=== PATIENT | male | born 1965 | race Caucasian/White ===

== ENCOUNTER → 2023-07-24 06:43 | Outpatient (REF) | payer OTHER, SELFPAY ==
[2023-07-24 10:07] LABS: % Basophils 0.6 % (0-2); % Eosinophils 8.9 % (0-6); % Immature Granulocytes 0.4 % (0-0.5); % Lymphocytes 28.4 % (20.5-51.1); % Monocytes 8.9 % (1.7-9.3); % Neutrophils 52.8 % (42.2-75.2); Absolute Eosinophils 0.5 10^3/uL (0-0.7); Absolute Lymphocytes 1.5 10^3/uL (1.2-3.4); Absolute Monocytes 0.5 10^3/uL (0.1-0.6); Absolute Neutrophils 2.8 10^3/uL (1.4-6.5); Hematocrit 37.8 % (39.0-52.0); Hemoglobin 13.3 g/dL (13.0-18.0); Mean Corp Hgb Conc. 35.2 g/dL (33.0-37.0); Mean Corpuscular Hgb 40.1 pg (27.0-31.0); Mean Corpuscular Volume 113.9 fL (80.0-94.0); Nucleated Red Blood Cells % 0 % (-); Platelet Count 223 10^3/uL (130-400); Red Blood Cell Count 3.32 10^6/uL (4.70-6.10); White Blood Cell Count 5.4 10^3/uL (4.8-10.8)
[2023-07-24 10:34] LABS: Iron 211 ug/dl (49-181)
[2023-07-24 10:43] LABS: Percent Saturation 81 % (20-50); Total Iron Binding Capacity 260 ug/dl (261-462)
[2023-07-24 11:41] LABS: Vitamin B12 225 pg/ml (239-931)
[2023-07-24 12:43] LABS: Glycohemoglobin (HgbA1c) 5.2 % (4.0-5.6)
== END ==
LOC: HWLAB 06:43
PROVIDERS: ATTENDING PHYSICIAN Physician Assistant
DX: E11.9 Type 2 diabetes mellitus without complications (principal); D64.9 Anemia, unspecified
CPT/HCPCS: 36415; 82607; 82728; 83036; 83540; 83550; 85025

== ENCOUNTER 2024-12-12 20:48 | Inpatient (IN) | payer OTHER, SELFPAY ==
[2024-12-12] VITALS (15 sets, daily range): BP systolic 97–158; BP diastolic 48–131; BMI 44.1; BMI 43.6
[2024-12-12 14:08] LABS: Hematocrit 22.7 % (39.0-52.0); Hemoglobin 7.6 g/dL (13.0-18.0); Mean Corp Hgb Conc. 33.5 g/dL (33.0-37.0); Mean Corpuscular Volume 133.5 fL (80.0-94.0); Nucleated Red Blood Cells % 0.6 % (-); Platelet Count 201 10^3/uL (130-400); Red Cell Dist. Width 13.7 % (11.5-14.5)
--- NOTE | 2024-12-12 14:17 | ED.GENMED ---
History of Present Illness
<Concepcion Slaughter PA-C - Last Filed: 12/12/24 19:33>
General
Chief Complaint: Breathing Problem
Source: patient
Exam Limitations: none
Time Seen by Provider: 12/12/24 14:16
History of Present Illness
History of Present Illness:
59yoM with a history of hypertension, hyperlipidemia, type 2 diabetes presenting for evaluation of fatigue. Patient had a fall about a month ago in which he injured his left rib cage. He believes he cracked a rib at that time. He has been having
shortness of breath ongoing since then with intermittent wheezing. His son notes that he has had a gradual decline in health for the past week or so. He was driving in the car today when he was 'dosing off' and he was brought to the ED for
evaluation. He denies any fevers, cough, syncope, abdominal pain.
Past History
<Concepcion Slaughter PA-C - Last Filed: 12/12/24 19:33>
Past History
ED Past Medical History: HTN and Other (Lumbar laminectomy 1996, lumbar fusion 1997, left knee total replacement, hypertension, hyperlipidemia); Negative IDDM
Social History
Tobacco: Former smoker
Alcohol: Occasional
Drug: None
Personal:
Living: with family
Employment: Employed
Family History
Family History: CAD and Other (breast cancer)
Phy Exam
<Concepcion Slaughter PA-C - Last Filed: 12/12/24 19:33>
General Physical Exam
General Presentation: mild distress
General Skin: warm and dry
General Habitus: obese
General Mental: alert
ENT Exam
ENT Exam: normocephalic
Cardiovascular Exam
Cardiovascular Exam: regular rate/rhythm
Pulmonary Exam
Pulmonary Exam: no crackles, no stridor, no wheezing, decreased breath sounds and other (+L lateral chest wall tenderness. No crepitus or skin changes.)
Gastrointestinal Exam
Gastrointestinal Exam: non tender, soft and non distended
Stool: other (Stool light brown, hemoccult negative)
Neurological Exam
Neurological Exam: alert
[place] Coma Scale
Eye Opening: Spontaneous
Verbal Response: Oriented
Motor Response: Obeys Commands
GCS Total Score: 15
Skin Exam
Skin Exam: normal color and warm/dry
Psychiatric Exam
Psychiatric Exam: normal mood/affect
Scores
<Concepcion Slaughter PA-C - Last Filed: 12/12/24 19:33>
Heart Failure Risk
Heart Failure Risk Score: Not Applicable
Course
<Concepcion Slaughter PA-C - Last Filed: 12/12/24 19:33>
Orders/Labs/Results
Orders:
Orders
12/12/24 13:48
Electrocardiogram (*1) Urgent
Reason for Study: Chest Pain
EKG- Treatment ONCE
12/12/24 14:01
Comprehensive Metabolic Panel Urgent
12/12/24 14:02
BNP [NT-proBNP] Urgent
Complete Blood Count/With Diff Urgent
Troponin I Urgent
12/12/24 14:48
Type+Screen Urgent
PTT Urgent
Prothrombin Time Urgent
12/12/24 14:51
Chest/Abd/Pelvis w Contrast CT [CT Chest/abd/pel W Iv Cont] Urgent
Comment:
Reason For Exam: Fall 1 month ago, L rib pain, new onset anemia
12/12/24 15:03
Ferritin Urgent
Iron Urgent
TIBC [Total Iron Binding] Urgent
12/12/24 15:54
Blood Bank Products [* Blood Bank Products] Urgent
Blood Bank Products: *Packed RBC Leuko(PRBC's)
Quantity: 1
Transfuse Today: Yes
Reason: Anemia
12/12/24 16:11
Arterial Blood Gas Urgent
%Oxygen/Room Air: room air
Abnormal Lab Results
12/12/24 12/12/24 12/12/24
14:01 14:02 14:48
WBC 4.7 L 10^3/uL
(4.8-10.8)
RBC 1.70 L 10^6/uL
(4.70-6.10)
Hgb 7.6 L g/dL
(13.0-18.0)
Hct 22.7 L %
(39.0-52.0)
MCV 133.5 H fL
(80.0-94.0)
MCH 44.7 H pg
(27.0-31.0)
Absolute Lymphs (auto) 0.8 L 10^3/uL
(1.2-3.4)
Immature Gran % 0.6 H %
(0-0.5)
Lymphocytes % 16.7 L %
(20.5-51.1)
APTT 36.2 H Sec
(23.4-35.0)
pO2
Sodium 131 L mmol/L
(135-145)
Glucose 119 H mg/dl
(70-99)
TIBC
% Saturation
Ferritin
Total Bilirubin 1.5 H mg/dl
(0.2-1.3)
Alkaline Phosphatase 180 H U/L
(38-126)
Albumin 3.1 L g/dl
(3.5-5.0)
Crossmatch IS Only See Detail
12/12/24 12/12/24
15:03 16:11
WBC
RBC
Hgb
Hct
MCV
MCH
Absolute Lymphs (auto)
Immature Gran %
Lymphocytes %
APTT
pO2 71 L mmHg
(83-108)
Sodium
Glucose
TIBC 183 L ug/dl
(261-462)
% Saturation 67 H %
(20-50)
Ferritin 479.0 H ng/ml
(17.9-464.0)
Total Bilirubin
Alkaline Phosphatase
Albumin
Crossmatch IS Only
12/12/24 14:02
12/12/24 14:01
Vital Signs
Initial and Last Documented VS:
Initial Vital Signs
Temp Pulse Resp Pulse Ox
98.4 F 87 15 99
12/12/24 13:49 12/12/24 13:49 12/12/24 13:49 12/12/24 13:49
Last Documented Vital Signs
Temp Pulse Resp BP Pulse Ox
97.8 F 80 18 122/86 96
12/12/24 18:04 12/12/24 18:33 12/12/24 19:00 12/12/24 18:05 12/12/24 18:30
<Edi Abraham, DO - Last Filed: 12/12/24 15:49>
Orders/Labs/Results
Orders:
Orders
12/12/24 13:48
Electrocardiogram (*1) Urgent
Reason for Study: Chest Pain
EKG- Treatment ONCE
12/12/24 14:01
Comprehensive Metabolic Panel Urgent
12/12/24 14:02
BNP [NT-proBNP] Urgent
Complete Blood Count/With Diff Urgent
Troponin I Urgent
12/12/24 14:48
Type+Screen Urgent
PTT Urgent
Prothrombin Time Urgent
12/12/24 14:51
Chest/Abd/Pelvis w Contrast CT [CT Chest/abd/pel W Iv Cont] Urgent
Comment:
Reason For Exam: Fall 1 month ago, L rib pain, new onset anemia
12/12/24 15:03
Ferritin Urgent
Iron Urgent
TIBC [Total Iron Binding] Urgent
12/12/24 15:54
Blood Bank Products [* Blood Bank Products] Urgent
Blood Bank Products: *Packed RBC Leuko(PRBC's)
Quantity: 1
Transfuse Today: Yes
Reason: Anemia
12/12/24 16:11
Arterial Blood Gas Urgent
%Oxygen/Room Air: room air
Abnormal Lab Results
12/12/24 12/12/24 12/12/24
14:01 14:02 14:48
WBC 4.7 L 10^3/uL
(4.8-10.8)
RBC 1.70 L 10^6/uL
(4.70-6.10)
Hgb 7.6 L g/dL
(13.0-18.0)
Hct 22.7 L %
(39.0-52.0)
MCV 133.5 H fL
(80.0-94.0)
MCH 44.7 H pg
(27.0-31.0)
Absolute Lymphs (auto) 0.8 L 10^3/uL
(1.2-3.4)
Immature Gran % 0.6 H %
(0-0.5)
Lymphocytes % 16.7 L %
(20.5-51.1)
APTT 36.2 H Sec
(23.4-35.0)
pO2
Sodium 131 L mmol/L
(135-145)
Glucose 119 H mg/dl
(70-99)
TIBC
% Saturation
Ferritin
Total Bilirubin 1.5 H mg/dl
(0.2-1.3)
Alkaline Phosphatase 180 H U/L
(38-126)
Albumin 3.1 L g/dl
(3.5-5.0)
Crossmatch IS Only See Detail
12/12/24 12/12/24
15:03 16:11
WBC
RBC
Hgb
Hct
MCV
MCH
Absolute Lymphs (auto)
Immature Gran %
Lymphocytes %
APTT
pO2 71 L mmHg
(83-108)
Sodium
Glucose
TIBC 183 L ug/dl
(261-462)
% Saturation 67 H %
(20-50)
Ferritin 479.0 H ng/ml
(17.9-464.0)
Total Bilirubin
Alkaline Phosphatase
Albumin
Crossmatch IS Only
12/12/24 14:02
12/12/24 14:01
Vital Signs
Initial and Last Documented VS:
Initial Vital Signs
Temp Pulse Resp Pulse Ox
98.4 F 87 15 99
12/12/24 13:49 12/12/24 13:49 12/12/24 13:49 12/12/24 13:49
Last Documented Vital Signs
Temp Pulse Resp BP Pulse Ox
97.8 F 80 18 122/86 96
12/12/24 18:04 12/12/24 18:33 12/12/24 19:00 12/12/24 18:05 12/12/24 18:30
[place];Concepcion Slaughter PA-C - Last Filed: 12/12/24 19:33>
MDM/Problems Addressed
Differential Diagnosis Includes:
59yoM here with fatigue. Started with SOB and L rib pain after a fall 1 month ago. Worsening fatigue x 1 week and was 'dosing off' while driving today. VSS. He is ill appearing but awake and alert during exam. Differential diagnosis includes but is
not limited to: pneumonia, aspiration, rib fracture, symptomatic anemia, ACS
Initial ED plan: Workup initiated in triage and hemoglobin is 7.6, down from 13.3 in July 2023. Rectal exam performed and stool is light brown and hemoccult testing negative. Will check cardiac labs, EKG, and CT CAP given anemia and recent trauma.
<Concepcion Slaughter PA-C - Last Filed: 12/12/24 19:33>
*Pulse Oximetry
SaO2: 99
Oxygen Mode of Delivery: Room air
Patient hypoxic: no
*EKG
Interpreted by ED Provider?: Yes
EKG Intrepretation Date: 12/12/24
Heart Rate: 87
Rate: normal
Rhythm: PVC's
[place]: normal axis
QRS Pattern: right bundle branch block
Ischemia: no ischemia
*Critical Care Note
Total Time (30-74mins, 75-104mins- exclusive of procedures): Not Applicable
<Concepcion Slaughter PA-C - Last Filed: 12/12/24 19:33>
Update Note
Update Note:
BNP elevated at 4000. Troponin normal. CT shows acute nondisplaced fractures of left 4th-6th ribs with bilateral pleural effusions. Splenomegaly and nonspecific adenopathy also noted, possible lymphoma. Consent obtained and 1 unit PRBCs ordered
for transfusion. Patient admitted for further evaluation and management.
ED Attending Note
<Concepcion Slaughter PA-C - Last Filed: 12/12/24 19:33>
-
Portions of this chart may have been created with voice recognition software.� Occasional wrong word or��sound alike� substitutions may have occurred due to the inherent limitations of voice recognition software.
<Edi Abraham, - Last Filed: 12/12/24 15:49>
ED Attending Note
Patient seen and examined by attending physician: Yes
I performed the substantive portion of visit, reviewed & personally made and approve the management plan that is documented in note by myself or EDDIE.: Yes
ED Attending Note:
I evaluated the patient at bedside. The patient is somewhat ill-appearing. He is somnolent. Will check ABG but his bicarb is normal. Given the drop in the hemoglobin and he had a recent fall, we will obtain CT imaging of the chest abdomen pelvis
Discharge Plan
Departure
Patient Disposition: Admit
Date of Disposition: 12/12/24
Time of Disposition: 19:03
Presentation/result/management discussed w/ accepting MD/DO: Hospitalist
Discharge Problem:
Symptomatic anemia, Splenomegaly, Multiple fractures of ribs of left side
Prescriptions:
No Action
atorvastatin 40 MG tablet
40 mg PO DAILY
metoprolol tartrate 50 MG tablet
100 mg PO DAILY
gurinder Leon,B.animalis 1 EACH capsule
1 ea PO DAILY
Beet Capsules
1 tab PO DAILY
omeprazole [Prilosec] 40 MG capsule,delayed release(DR/EC)
40 mg PO DAILY Qty: 0 0RF
aspirin [Kushal Low Dose Aspirin] 81 MG tablet,delayed release (DR/EC)
81 mg PO DAILY Qty: 20 0RF
Lisinopril
1 tab PO DAILY
Patient Comments:
PT DOES NOT KNOW DOSE
oxycodone-acetaminophen 1 EACH tablet
1 ea PO Q4HPRN PRN (Reason: pain) Qty: 20 0RF
methylprednisolone [Medrol (Wallace)] 4 MG tablets,dose pack
4 tab PO . DIRECT Qty: 1 0RF
Referrals:
Maite Long PA-C [Family Provider, Internal Medicine]
Interventions
Interventions:
*Risk Screen - Suicide Last Done: 12/12/24 13:49
*General Assessment Last Done: 12/12/24 13:49
*Neglect/Abuse Screening Last Done: 12/12/24 13:49
*ED- Fall Risk Assessment Last Done: 12/12/24 14:50
*ED COVID-19 Vaccine History Last Done: 12/12/24 13:49
*ED Influenza Vaccine History Last Done: 12/12/24 13:49
ED- Cardiac Assessment Last Done: 12/12/24 14:54
ED- Pulmonary Assessment Last Done: 12/12/24 14:54
Discharge Date and Time
Print Language: SETSWANA
[2024-12-12 14:24] LABS: ALT (SGPT) 32 U/L (0-50); AST (SGOT) 53 U/L (17-59); Albumin 3.1 g/dl (3.5-5.0); Alkaline Phosphatase 180 U/L (38-126); Blood Urea Nitrogen 16 mg/dl (9-20); Calcium 8.4 mg/dl (8.4-10.2); Carbon Dioxide 26 mmol/L (22-30); Chloride 100 mmol/L (98-107); Glucose 119 mg/dl (70-99); Potassium 3.8 mmol/L (3.5-5.1); Sodium 131 mmol/L (135-145); Total Protein 6.6 g/dl (6.3-8.2); eGFR > 60.00
[2024-12-12 14:36] LABS: Troponin I 0.020 ng/ml
[2024-12-12 15:28] LABS: INR 1.09; PT 14.6 Sec (11.4-14.6)
[2024-12-12 15:29] LABS: APTT 36.2 Sec (23.4-35.0)
[2024-12-12 15:35] LABS: Iron 124 ug/dl (49-181)
[2024-12-12 15:45] LABS: Total Iron Binding Capacity 183 ug/dl (261-462)
[2024-12-12 16:17] LABS: B.E. 0.1 mmol/L; HCO3 24.6 mmol/L (21-28); O2 Saturation % 96.5 % (94-98); PCO2 38 mmHg (35-48); PO2 71 mmHg (83-108)
[2024-12-12 16:18] LABS: Ferritin 479.0 ng/ml (17.9-464.0)
--- NOTE | 2024-12-12 19:52 | HPS.HSE ---
Addendum entered and electronically signed by William Hutchins DO 12/12/24 23:15:
Patient seen and examined independently. Agree with findings and plan as set forth by TRISTAN Del Valle.
Patient is a 59y M with PMH significant for hypertension, DM-II and obesity who presents to ED complaining of dyspnea with exertion, excessive sleepiness and easy bruisability. Patient states that he had a fall about one month ago and injured
his L chest / ribs. He denies LOC / syncope at that time. He has appreciated significant dyspnea with activity that has been gradually progressive. Today he was driving his son to the store when he began to fall asleep while driving. His son was
able to keep him awake and they presented here to the ED for further evaluation. He denies any nose bleeds, hemoptysis, hematemesis or black / bloody stools. No bloody or dark urine.
Ass:
Symptomatic Anemia
Diffuse Adenopathy
Left-Sided Rib Fractures s/p Fall
Benign Hypertension - currently hypotensive
DM-II
Morbid Obesity due to excess calories
Alcohol Use Disorder
Plan:
Admit for further evaluation and treatment.
Transfusing in the ED for symptomatic anemia with dyspnea, fatigue.
Follow for clinical improvement.
Hematology evaluation for additional recommendations.
Hold usual antihypertensive medications acutely.
Follow glucose and cover with SSI as needed.
Update A1C.
Original Note:
Family Physician
-
Family Physician: Maite Long
Chief Complaint
-
Fall 1 month ago, shortness of breath, dyspnea on exertion, lethargy, bilateral arm bruising
History of Present Illness
59-year-old male states he had a fall approximately 1 month ago injuring the left side of his rib cage. He has been having ongoing pain, shortness of breath with intermittent wheezing. He also reports over the past 2 weeks feeling very lethargic
dozing off while driving his car. He does have some bruising to bilateral arms, chronic bilateral leg lymphedema/PVD, chronic follicular rash to abdomen. He denies fever, chills, chest pain, palpitations, cough, abdominal pain, nausea, vomiting,
diarrhea, urinary symptoms, bruising, black or bloody stools. He has past medical history of alcohol abuse, hypertension, hyperlipidemia, DM 2, former smoker, chronic bilateral leg lymphedema/PVD, chronic follicular rash to abdomen, class III
obesity
Medical History
Past Medical History
Past Medical History: Reports Other
Additional Past Medical History:
alcohol abuse
hypertension
hyperlipidemia
DM 2
former smoker
chronic bilateral leg lymphedema/PVD,
chronic follicular rash to abdomen
class III obesity
Past Surgical History: Reports Other
Additional Past Surgical History:
Lumbar laminectomy 1996
Lumbar fusion 1997
Left total knee replacement
Social History
Tobacco: Former Smoker (15 years 1 pack a day quit 2003)
Alcohol: Daily (18 to 24 ounces of Chardonnay daily prior used to drink 10 to 21 ounces of vodka daily up until 2019)
Drug: None
Personal: Single
Living: With Family (Autistic son)
Employment: Not Employed
Family History
Family History: Not pertinent
Allergies / Home Medications
Allergies reflects when Allergies were last updated in [employer].
Home Medications with original date entered in [employer]
Allergy/Medication List:
Allergies
Allergy/AdvReac Type Severity Reaction Status Date / Time
acetaminophen (From Tylenol) Allergy d/t Verified 01/20/15 08:17
elevated
liver
enzymes;denies
allergy
Home Medications
atorvastatin 40 mg tablet 40 mg PO DAILY 08/27/14
metoprolol tartrate 50 mg tablet 75 mg PO DAILY 08/27/14
empagliflozin 25 mg tablet (Jardiance) 25 mg PO DAILY 12/12/24
gabapentin 800 mg tablet 800 mg PO BID 12/12/24
oxycodone 5 mg PO DAILY PRN Breakthrough pain 12/12/24
oxycodone 5 mg tablet 5 mg PO BID 12/12/24
Review of Systems
-
History Source: Patient
A 12 point ROS was completed and negative except as noted: Yes
Constitutional: Reports Fatigue; Denies Fever, Weight Gain, Weight Loss, Night Sweats or Chills
EENT: Denies Sore Throat or Runny Nose
Respiratory: Reports Other (Dyspnea on exertion); Denies Cough
Cardiac: Denies Chest Pain, Palpitations or Syncope
Abdomen/GI: Denies Abdominal Pain, Nausea, Vomiting, Diarrhea, Constipated, Bloody Stools or Black Stools
: Denies Dysuria, Frequency, Flank Pain, Incontinence, Difficulty Voiding or Urgency
Musculoskeletal: Reports Edema (Chronic lymphedema +2 with chronic pigment changes to lower legs); Denies Joint Pain
Skin: Reports Other (Bruising bilateral arms present, healed numerous follicular lesions to lower pannus bilateral sides); Denies Itching or Rash
Neurological: Reports Weakness (Generalized); Denies Dizzy or Headache
Endocrine: Reports No Symptoms
Hematologic/Lymphatic: Reports No Symptoms
Psych: Reports Calm
Physical Exam
Vital Signs
Vital Signs
Temp Pulse Resp BP Pulse Ox
97.8 F 80 18 122/86 96
12/12/24 18:04 12/12/24 18:33 12/12/24 19:00 12/12/24 18:05 12/12/24 18:30
Physical Exam
General: Morbidly Obese; No Pain, Fever or Chills
HEENT: NormoCephalic, Anicteric, Moist mucous membranes, PERRLA, [place] Conjunctivae and No Ptosis
Respiratory: Clear; No Wheezes, Rales or Rhonchi
Cardiac: S1/S2, Regular Rhythm and Peripheral Edema (Chronic bilateral +1); No Murmur, Rub or Gallop
GI: Soft, Non Distended, Normal Bowel Sounds and Other (Protuberant abdomen unable to palpate liver and spleen, numerous healed old folliculitis sites lower abdominal pannus)
Rectal: Deferred by Provider
Genito-urinary: Deferred by me
Musculoskeletal: No Clubbing, No Cyanosis, Edema, Left Lower Extremity, Edema, Right Lower Extremity and Other (Chronic lymphedema +2 with chronic pigment changes to lower legs); No Edema, Left Upper Extremity or Edema, Right Upper Extremity
Skin: Warm, Dry and Other; No Rash
Neuro: AO x 3, No Motor Deficits, Nonfocal/grossly intact, Cranial Nerves Intact and No Sensory Deficits; No Slurred Speech, Facial Droop, Tremors or Sedated
Psych: Calm
Laboratory Results
-
12/12/24 14:02
12/12/24 14:01
Laboratory Results
PT 14.6 Sec (11.4-14.6) 12/12/24 14:48
INR 1.09 12/12/24 14:48
APTT 36.2 Sec (23.4-35.0) H 12/12/24 14:48
pH 7.42 (7.35-7.45) 12/12/24 16:11
pCO2 38 mmHg (35-48) 12/12/24 16:11
pO2 71 mmHg (83-108) L 12/12/24 16:11
HCO3 24.6 mmol/L (21-28) 12/12/24 16:11
Total Bilirubin 1.5 mg/dl (0.2-1.3) H 12/12/24 14:01
AST 53 U/L (17-59) 12/12/24 14:01
ALT 32 U/L (0-50) 12/12/24 14:01
Alkaline Phosphatase 180 U/L (38-126) H 12/12/24 14:01
Troponin I 0.020 ng/ml 12/12/24 14:02
Impression/Plan
-
Impression/plan:
Admit to telemetry
#Macrocytic anemia/low RBCs/SPLENOMEGALY /ADENOPATHYbase of neck, para-aortic, interaortocaval concern for possible LYMPHOMA
Hgb 7.6, MCV 133.5
RBC 1.70, PLT 201 normal
Iron panel within normal limits
- Check B12 folate
- Type and screen
- Transfuse 1 unit PRBC
- Consult Hematology
CT chest abdomen pelvis with IV contrast:
1. Acute nondisplaced fractures of the lateral left fourth, fifth, and sixth ribs. No pneumothorax.
2. Small to moderate right and trace left pleural effusion. Mild atelectasis.
3. Nonspecific adenopathy. Splenomegaly. Recommend clinical correlation. Possible lymphoma.
Mild posterior interaortocaval adenopathy measuring 13 mm. Not present previously. Posterior left para-aortic adenopathy measuring 2.2 cm.
base of the neck on the left, there is a lobular soft tissue attenuation partially imaged measuring 1.5 cm likely adenopathy
4. Fatty infiltration of liver. Diffuse gallbladder wall thickening measuring up to 6 mm. Nonspecific. Recommend clinical correlation to exclude the possibility of acute cholecystitis.
No bile duct dilatation.
5. Splenomegaly.
No retroperitoneal hemorrhage or hematoma.
6. Third spacing.
7. Incidental tiny pulmonary nodules. There are 3 nodules identified measuring up to 2.8 mm. Consider follow-up in one year if the patient is at increased risk.
#Alcohol abuse
INR 1.09
Patient drinks 18 to 24 ounces of Chardonnay daily last drink was yesterday
States she used to drink prior 10.5 to 21 ounces of vodka during a day stopped in 2019 and switched to wine
[facility]
-IV thiamine IV folate
#Small to moderate right pleural effusion
#Mechanical fall 1 month ago with left fourth, fifth, sixth rib fractures
Lidoderm patch
#Incidental tiny pulmonary nodules x 3 measuring up to 2.8 mm
Former smoker 15-year 1 pack a day quit 2003
Recommend follow-up [address]
#Fatty liver per CT
# Hypotension/HTN
BP 97/74
Hold metoprolol 75 mg XL daily
#HLD
Continue atorvastatin 40 mg at bedtime
#DM 2
Accu-Cheks with SSI, check HgbA1c
Continue Jardiance 10 mg daily
#Chronic back pain on chronic oral opiates
-Continue OxyContin 5 mg twice daily and as needed for breakthrough pain
-Continue gabapentin 800 mg twice daily
#PVD, chronic lymphedema bilateral legs
Continue gabapentin
#Class III obesity�BMI 44
Affects all aspects of care
Weight loss recommended patient states lost 50 pounds over the past year intentionally but has been stuck at that
DVT prophylaxis
Subcu heparin
Full code
[2024-12-12] MEDS: THIAMINE INJECTION 200 MG IV (23:57)
[2024-12-12] MEDS: NEURONTIN 800 MG PO (23:58)
[2024-12-12] MEDS: ROXICODONE 5 MG PO (23:59)
[2024-12-13] VITALS (8 sets, daily range): BP systolic 93–162; BP diastolic 38–100; BMI 43.6; BMI 43.5
[2024-12-13 00:38] LABS: GGTP 87 U/L (15-73)
[2024-12-13] MEDS: FARXIGA 10 MG PO (09:00)
[2024-12-13] MEDS: NEURONTIN 800 MG PO ×2 (09:01→20:31)
[2024-12-13] MEDS: THIAMINE INJECTION 200 MG IV ×3 (09:01→23:12)
[2024-12-13] MEDS: FOLVITE 1 MG PO (09:01)
[2024-12-13] MEDS: LIPITOR 40 MG PO (09:01)
[2024-12-13] MEDS: ROXICODONE 5 MG PO ×2 (09:01→21:48)
[2024-12-13] MEDS: HEPARIN 5000 UNITS SC ×2 (09:01→20:30)
[2024-12-13 09:42] LABS: ALT (SGPT) 31 U/L (0-50); AST (SGOT) 50 U/L (17-59); Albumin 2.8 g/dl (3.5-5.0); Alkaline Phosphatase 162 U/L (38-126); Blood Urea Nitrogen 15 mg/dl (9-20); Calcium 8.2 mg/dl (8.4-10.2); Carbon Dioxide 27 mmol/L (22-30); Chloride 103 mmol/L (98-107); Estimated Creatinine Clearance 120 ml/min; Glucose 92 mg/dl (70-99); HDL Cholesterol 21 mg/dl; LDL Cholesterol, Calculated 23 mg/dl; Magnesium 2.3 mg/dl (1.6-2.3); Potassium 3.7 mmol/L (3.5-5.1); Sodium 134 mmol/L (135-145); Total Protein 6.1 g/dl (6.3-8.2); Very Low Density Lipoprotein 13 mg/dl (0-30); eGFR > 60.00
--- NOTE | 2024-12-13 09:45 | W.PN.HOSP.TC ---
Today's Communication/Plan
-
Follow-up CBC, labs
Hematology consult
PT/OT
Lower extremity venous Doppler ultrasound
Assessment / Plan
Assessment / Plan
Gen-awake, not fully alert, NAD, morbid obesity
HEENT-NC, AT, anicteric, clear oral mm
Neck-supple
CV-reg, no M, +S1/S2
Lungs-clear B/L
Abd-soft, NT, ND
Ext-bilateral lower extremity edema
Musculoskeletal-no cyanosis, clubbing
Skin-warm and dry, bilateral lower extremity hyperpigmentation
Neuro-grossly non-focal
Psych-calm, cooperative
Symptomatic anemia -unclear etiology. No evidence of iron deficiency. Check B12, folic acid levels. Markedly elevated MCV noted.
Transfuse 1 unit of blood yesterday. CBC pending for today. Hematology consulted.
Abdominal adenopathy and splenomegaly along with anemia and leukopenia concerning. Denies B symptoms.
Alcohol use disorder -last drink was 12/10 reportedly. Monitor for withdrawal. Continue thiamine and folic acid, alcohol withdrawal protocol. Abstinence discussed.
Hyponatremia -POA, 134 today. Will check labs.
Bilateral lower extremity edema -primarily lymphedema. Check venous Doppler ultrasound.
DM 2 without hyperglycemia -hemoglobin A1c pending. On Jardiance at home.
Currently on Farxiga in the hospital. Add low resistance NovoLog scale.
Subacute left-sided rib fractures -nondisplaced, #4, 5, and 6. Patient states he fell a few weeks ago. Suspect may have been related to drinking alcohol.
Bilateral pleural effusions - noted on CT. Small to moderate on the right, trace on the left. Mild atelectasis.
Essential hypertension -blood pressure readings are labile. Need to ensure we are using properly sized cuff.
Hyperlipidemia -atorvastatin.
Chronic pain syndrome/chronic opiate dependence
FLOR[place]IA/obesity hypoventilation syndrome -intolerant of CPAP. Does not see pulmonary. He is trying to pursue Inspira device.
Morbid obesity due to excess calories
Full code
PT/OT
Anticipated Discharge: > 48 hours
Subjective/Interval History
-
Date of Service: December 13, 2024
Patient seen and examined. Feeling better compared to yesterday, no complaints.
Objective Data
-
Labs:
Laboratory Results
12/13/24
08:37
WBC Pending
Hgb Pending
Hct Pending
Plt Count Pending
Sodium 134 L
Potassium 3.7
Chloride 103
Carbon Dioxide 27
BUN 15
Creatinine 1.0
Glucose 92
Calcium 8.2 L
Total Bilirubin 2.0 H
AST 50
ALT 31
Alkaline Phosphatase 162 H
Vital Signs:
Vital Signs
Temp Pulse Resp BP Pulse Ox
97.5 F 82 20 100/58 97
12/13/24 07:30 12/13/24 07:30 12/13/24 07:30 12/13/24 07:30 12/13/24 07:30
I&O
12/12/24 12/13/24 12/14/24
06:59 06:59 06:59
Intake Total 730 / 730
Output Total 100 / 100
Balance 630 / 630
Review of Systems
-
History Source: Patient
All other systems: Reviewed and negative
[2024-12-13 10:01] LABS: Hematocrit 24.1 % (39.0-52.0); Hemoglobin 8.0 g/dL (13.0-18.0); Mean Corp Hgb Conc. 33.2 g/dL (33.0-37.0); Mean Corpuscular Volume 128.2 fL (80.0-94.0); Nucleated Red Blood Cells % 0 % (-); Platelet Count 236 10^3/uL (130-400); Red Cell Dist. Width 19.7 % (11.5-14.5); Reticulocyte Count 4.8 % (0.4-2.8)
[2024-12-13 10:23] LABS: Vitamin B12 963 pg/ml (239-931)
[2024-12-13 10:37] LABS: Glycohemoglobin (HgbA1c) 4.9 % (4.0-5.6)
[2024-12-13 11:17] LABS: Folate 1.6 ng/ml (2.76-20)
[2024-12-13 11:48] LABS: Glucose - Point of Care 132 mg/dl (70-99)
[2024-12-13 13:51] LABS: Hypochromasia 1+; Normal RBC Morphology No
[2024-12-13 13:52] LABS: Macrocytosis Occasional; Stomatocytes Occasional
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
[2024-12-13 16:53] LABS: Urine Character Clear (Clear)
[2024-12-13 16:55] LABS: Glucose - Point of Care 138 mg/dl (70-99)
[2024-12-13 18:31] LABS: Urine Squamous Cell 21-25 /LPF (Few)
[2024-12-13 18:32] LABS: Urine Red Blood Cell 0-2 /HPF (0-2); Urine White Cell 0-2 /HPF (0-5)
[2024-12-13] MEDS: ATIVAN 1 MG PO (20:30)
[2024-12-13 21:09] LABS: Glucose - Point of Care 127 mg/dl (70-99)
[2024-12-14] VITALS (9 sets, daily range): BP systolic 98–141; BP diastolic 54–97; PULSE 97–108; O2SAT 96; BMI 43.2
[2024-12-14 06:45] LABS: Hematocrit 24.2 % (39.0-52.0); Hemoglobin 8.1 g/dL (13.0-18.0); Mean Corp Hgb Conc. 33.5 g/dL (33.0-37.0); Mean Corpuscular Volume 130.8 fL (80.0-94.0); Nucleated Red Blood Cells % 0.6 % (-); Platelet Count 208 10^3/uL (130-400); Red Cell Dist. Width 18.8 % (11.5-14.5)
[2024-12-14 07:07] LABS: ALT (SGPT) 32 U/L (0-50); AST (SGOT) 52 U/L (17-59); Albumin 2.9 g/dl (3.5-5.0); Alkaline Phosphatase 154 U/L (38-126); Blood Urea Nitrogen 14 mg/dl (9-20); Calcium 8.3 mg/dl (8.4-10.2); Carbon Dioxide 26 mmol/L (22-30); Chloride 104 mmol/L (98-107); Estimated Creatinine Clearance 120 ml/min; Glucose 84 mg/dl (70-99); LDH 226 U/L (120-246); Potassium 4.3 mmol/L (3.5-5.1); Sodium 136 mmol/L (135-145); Total Protein 6.3 g/dl (6.3-8.2); eGFR > 60.00
[2024-12-14 07:30] LABS: Glucose - Point of Care 79 mg/dl (70-99)
[2024-12-14] MEDS: FARXIGA 10 MG PO (09:29)
[2024-12-14] MEDS: LIPITOR 40 MG PO (09:29)
--- NOTE | 2024-12-14 09:29 | W.PN.HOSP.TC ---
Today's Communication/Plan
-
TSH
Lower extremity ultrasound
CPAP
Assessment / Plan
Assessment / Plan
Gen-awake, not fully alert, NAD, morbid obesity
HEENT-NC, AT, anicteric, clear oral mm
Neck-supple
CV-reg, no M, +S1/S2
Lungs-clear B/L
Abd-soft, NT, ND
Ext-bilateral lower extremity edema
Musculoskeletal-no cyanosis, clubbing
Skin-warm and dry, bilateral lower extremity hyperpigmentation
Neuro-grossly non-focal
Psych-calm, cooperative
Symptomatic anemia -due to severe folic acid deficiency anemia.
Transfuse 1 unit of blood so far. Hemoglobin stable at 8.1.
Abdominal adenopathy and splenomegaly along with anemia and leukopenia concerning. Denies B symptoms.
Alcohol use disorder -last drink was 12/10 reportedly. Monitor for withdrawal. Continue thiamine and folic acid, alcohol withdrawal protocol. Abstinence discussed.
Hyponatremia -POA, improved to 136 today. Will check labs. TSH ordered as an add-on yesterday but not done. Will order again.
Bilateral lower extremity edema -primarily lymphedema. Check venous Doppler ultrasound.
DM 2 without hyperglycemia -hemoglobin A1c 4.9% but likely not reliable in the setting of anemia. On Jardiance at home.
Currently on Farxiga in the hospital. Add low resistance NovoLog scale.
Subacute left-sided rib fractures -nondisplaced, #4, 5, and 6. Patient states he fell a few weeks ago. Suspect may have been related to drinking alcohol.
Bilateral pleural effusions - noted on CT. Small to moderate on the right, trace on the left. Mild atelectasis.
Essential hypertension -blood pressure readings are labile. Need to ensure we are using properly sized cuff.
Hyperlipidemia -atorvastatin.
Chronic pain syndrome/chronic opiate dependence
FLORENCIA/obesity hypoventilation syndrome -intolerant of CPAP. Does not see pulmonary. He is trying to pursue Inspira device.
Patient willing to try CPAP in the hospital to help with his sleepiness. No retention noted on ABG.
Morbid obesity due to excess calories
Full code
PT/OT
Anticipated Discharge: > 48 hours
Subjective/Interval History
-
Date of Service: December 14, 2024
Patient seen and examined. Still feeling sleepy but awakens to answer questions. No complaints.
Objective Data
-
Labs:
Laboratory Results
12/14/24
06:02
WBC 3.6 L
Hgb 8.1 L
Hct 24.2 L
Plt Count 208
Sodium 136
Potassium 4.3
Chloride 104
Carbon Dioxide 26
BUN 14
Creatinine 1.0
Glucose 84
Calcium 8.3 L
Total Bilirubin 1.5 H
AST 52
ALT 32
Alkaline Phosphatase 154 H
Vital Signs:
Vital Signs
Temp Pulse Resp BP Pulse Ox
98.3 F 105 20 119/75 98
12/14/24 07:45 12/14/24 07:45 12/14/24 07:45 12/14/24 07:45 12/14/24 07:45
I&O
12/13/24 12/14/24 12/15/24
06:59 06:59 06:59
Intake Total 730 / 730 720 / 720
Output Total 100 / 100 400 / 400
Balance 630 / 630 320 / 320
Review of Systems
-
History Source: Patient
All other systems: Reviewed and negative
[2024-12-14] MEDS: HEPARIN 5000 UNITS SC ×2 (09:30→21:38)
[2024-12-14] MEDS: NEURONTIN 800 MG PO ×2 (09:30→21:38)
[2024-12-14] MEDS: THIAMINE INJECTION 200 MG IV ×3 (09:30→23:34)
[2024-12-14] MEDS: FOLVITE 5 MG PO (09:30)
[2024-12-14] MEDS: ROXICODONE PO (09:31)
--- NOTE | 2024-12-14 11:46 | CM ---
Met with pt. Provided resources on advance directives and offer [facility] resources. He declined [facility].
Plan: Home with no needs
[2024-12-14 12:07] LABS: Glucose - Point of Care 93 mg/dl (70-99)
[2024-12-14 12:53] LABS: TSH 16.60 uIU/ml (0.47-4.68)
--- NOTE | 2024-12-14 16:16 | CM ---
met with pt at chairside. IA completed. Lives with son in 1 Story house with 1 step at entrance to the home. Pt is independent with ADLs and IADLs. NO hx of home O2, HH or SNF. Has a spc which he uses. No insecurities identified. Confirmed PCP, RX
insurance. Pt does not have a drug plan.
PCP: Maite Long
Rx: Loretta/ [facility]havik GAVIN
Plan: Home with no needs
[2024-12-14 16:44] LABS: Glucose - Point of Care 115 mg/dl (70-99)
[2024-12-14 21:05] LABS: Glucose - Point of Care 175 mg/dl (70-99)
[2024-12-14] MEDS: ROXICODONE 5 MG PO (21:42)
[2024-12-15] VITALS (9 sets, daily range): BP systolic 110–143; BP diastolic 55–80; BMI 43.2
[2024-12-15 06:58] LABS: Hematocrit 22.5 % (39.0-52.0); Hemoglobin 7.1 g/dL (13.0-18.0); Mean Corp Hgb Conc. 31.6 g/dL (33.0-37.0); Mean Corpuscular Volume 129.3 fL (80.0-94.0); Nucleated Red Blood Cells % 0.6 % (-); Platelet Count 181 10^3/uL (130-400); Red Cell Dist. Width 18.5 % (11.5-14.5)
[2024-12-15 08:17] LABS: Glucose - Point of Care 94 mg/dl (70-99)
[2024-12-15] MEDS: FOLVITE 5 MG PO (08:59)
[2024-12-15] MEDS: LIPITOR 40 MG PO (08:59)
[2024-12-15] MEDS: FARXIGA 10 MG PO (08:59)
[2024-12-15] MEDS: NEURONTIN 800 MG PO ×2 (08:59→20:08)
[2024-12-15] MEDS: THIAMINE INJECTION 200 MG IV ×2 (09:00→16:07)
[2024-12-15] MEDS: HEPARIN 5000 UNITS SC ×2 (09:00→20:07)
[2024-12-15] MEDS: ROXICODONE PO (09:00)
--- NOTE | 2024-12-15 10:28 | W.PN.HOSP.TC ---
Today's Communication/Plan
-
Free T4
Transfuse
Home oxygen assessment
Labs in the morning
Bowel regimen
Assessment / Plan
Assessment / Plan
Gen-awake, alert, NAD
HEENT-NC, AT, anicteric, clear oral mm
Neck-supple
CV-reg, no M, +S1/S2
Lungs-clear B/L
Abd-soft, NT, ND
Ext-bilateral lower extremity edema
Musculoskeletal-no cyanosis, clubbing
Skin-warm and dry, bilateral lower extremity hyperpigmentation
Neuro-grossly non-focal
Psych-calm, cooperative
Symptomatic anemia -due to severe folic acid deficiency anemia.
Transfuse 1 unit of blood so far. Hemoglobin down to 7.1 today, will transfuse second unit of blood. Baseline hemoglobin unknown.
Abdominal adenopathy and splenomegaly along with anemia and leukopenia concerning. Denies B symptoms.
Evaluated by hematology in the hospital, recommend outpatient follow-up.
Alcohol use disorder -last drink was 12/10 reportedly. Monitor for withdrawal. Continue thiamine and folic acid, alcohol withdrawal protocol. Abstinence discussed.
Hyponatremia -POA, improved to 136 today.
Hypothyroidism -TSH 16, free T4 pending. Hypothyroidism would explain his presentation with fatigue.
Bilateral lower extremity edema -primarily lymphedema. Venous Doppler ultrasound negative for DVT.
DM 2 without hyperglycemia -hemoglobin A1c 4.9% but likely not reliable in the setting of anemia. On Jardiance at home.
Currently on Farxiga in the hospital. Add low resistance NovoLog scale.
Subacute left-sided rib fractures -nondisplaced, #4, 5, and 6. Patient states he fell a few weeks ago. Suspect may have been related to drinking alcohol.
Bilateral pleural effusions - noted on CT. Small to moderate on the right, trace on the left. Mild atelectasis.
Essential hypertension -blood pressure readings are labile. Need to ensure we are using properly sized cuff.
Hyperlipidemia -atorvastatin.
Chronic pain syndrome/chronic opiate dependence
FLORENCIA/obesity hypoventilation syndrome -intolerant of CPAP. Does not see pulmonary. He is trying to pursue Inspira device.
Patient willing to try CPAP in the hospital to help with his sleepiness. No retention noted on ABG.
Will try to arrange for home CPAP, patient motivated to try. Discussed with case management.
Will need to see pulmonary after discharge for updated sleep study. Discussed with patient and family.
Morbid obesity due to excess calories
Full code
PT/OT -Home health recommended.
Dispo -potential discharge Monday if hemoglobin improved and medically stable. Anticipate will need CPAP on discharge. Home oxygen evaluation. Visiting nursing. Updated case management.
Close outpatient follow-up with PCP, hematology, pulmonary.
Updated patient's family at the bedside.
Anticipated Discharge: Within 24 hours
Subjective/Interval History
-
Date of Service: December 15, 2024
Patient seen and examined. No new complaints.
Objective Data
-
Labs:
Laboratory Results
12/15/24
06:42
WBC 3.2 L
Hgb 7.1 L
Hct 22.5 L
Plt Count 181
Vital Signs:
Vital Signs
Temp Pulse Resp BP Pulse Ox
97.8 F 98 18 110/55 97
12/15/24 07:12 12/15/24 07:12 12/15/24 07:12 12/15/24 07:12 12/15/24 07:12
I&O
12/14/24 12/15/24 12/16/24
06:59 06:59 06:59
Intake Total 720 / 720 780 / 780
Output Total 400 / 400 1150 / 1150
Balance 320 / 320 -370 / -370
Review of Systems
-
History Source: Patient
All other systems: Reviewed and negative
--- NOTE | 2024-12-15 10:44 | CM ---
Met with pt and son at bedside. IMM given. Also spoke with Dr. Pacheco. Pt needs CPAP, VN and home O2 evaluation. Pt asked for [facility].Referral placed.
Plan: Home with [facility]
[2024-12-15 12:47] LABS: Glucose - Point of Care 99 mg/dl (70-99)
--- NOTE | 2024-12-15 12:52 | PTCARENOTE ---
Pt has HGB of 7.1, placed order for 1 unit of PRBC. Transfusion started at 1250
[2024-12-15 17:02] LABS: Glucose - Point of Care 98 mg/dl (70-99)
[2024-12-15] MEDS: COLACE PO ×2 (20:07→20:15)
[2024-12-15] MEDS: ROXICODONE 5 MG PO (20:08)
[2024-12-15] MEDS: VENTOLIN NEBULES 2.5 MG INH (20:34)
[2024-12-15 21:18] LABS: Glucose - Point of Care 144 mg/dl (70-99)
[2024-12-16 06:00] VITALS: BMI 43.4
[2024-12-16] MEDS: SYNTHROID 50 MCG PO (06:12)
[2024-12-16 07:00] VITALS: BP 136/91
[2024-12-16 07:15] LABS: Glucose - Point of Care 93 mg/dl (70-99)
--- NOTE | 2024-12-16 08:42 | W.PN.HOSP.TC ---
Today's Communication/Plan
-
Pulmonary edema
Monitor on awake overnight monitor
IV Lasix
Assessment / Plan
Assessment / Plan
Physical Exam
Gen-awake, alert, NAD
HEENT-NC, AT, anicteric, clear oral mm
Neck-supple
CV-reg, no M, +S1/S2
Lungs-clear B/L
Abd-soft, NT, ND
Ext-bilateral lower extremity edema
Musculoskeletal-no cyanosis, clubbing
Skin-warm and dry, bilateral lower extremity hyperpigmentation
Neuro-grossly non-focal
Psych-calm, cooperative
Assessment/Plan
Presentation with SOB and Fatigue
Symptomatic anemia -due to severe folic acid deficiency anemia.
Transfuse 1 unit of blood so far. Hemoglobin down to 7.1 today, will transfuse second unit of blood. Baseline hemoglobin unknown.
Abdominal adenopathy and splenomegaly along with anemia and leukopenia concerning. Denies B symptoms.
Evaluated by hematology in the hospital, recommend outpatient follow-up.
Pulmonary Edema
Acute Hypoxic Respiratory Failure
-New hypoxia on 12/16/24 morning
-ProBNP is quite specific (for acute CHF) for his weight and age
-Start 40 mg IV Lasix BID
-Suspected from blood transfusion
Alcohol use disorder -last drink was 12/11/24 reportedly. Monitor for withdrawal. Continue thiamine and folic acid, alcohol withdrawal protocol. Abstinence discussed.
Hyponatremia -POA, improved
Hypothyroidism -TSH 16, free T4 pending. Hypothyroidism would explain his presentation with fatigue. Levothyroxine started.
Bilateral lower extremity edema -primarily lymphedema. Venous Doppler ultrasound negative for DVT.
DM 2 without hyperglycemia -hemoglobin A1c 4.9% but likely not reliable in the setting of anemia. On Jardiance at home.
Currently on Farxiga in the hospital. Add low resistance NovoLog scale.
Subacute left-sided rib fractures -nondisplaced, #4, 5, and 6. Patient states he fell a few weeks ago. Suspect may have been related to drinking alcohol.
Bilateral pleural effusions - noted on CT. Small to moderate on the right, trace on the left. Mild atelectasis.
Essential hypertension -blood pressure readings are labile. Need to ensure we are using properly sized cuff.
Hyperlipidemia -atorvastatin.
Chronic pain syndrome/chronic opiate dependence
FLORENCIA/obesity hypoventilation syndrome -intolerant of CPAP. Does not see pulmonary. He is trying to pursue Inspira device.
Patient willing to try CPAP in the hospital to help with his sleepiness. No retention noted on ABG.
Will try to arrange for home CPAP, patient motivated to try. Discussed with case management.
Will need to see pulmonary after discharge for updated sleep study. Discussed with patient and family.
Morbid obesity due to excess calories
Full code
PT/OT -Home health recommended.
Anticipate will need CPAP on discharge. Home oxygen evaluation. Visiting nursing. Updated case management.
Close outpatient follow-up with PCP, hematology, pulmonary.
Anticipated Discharge: > 48 hours
Subjective/Interval History
-
Date of Service: December 16, 2024
Patient was seen and examined. He reported on and off SOB and wheezing, now needing oxygen.
Objective Data
-
Labs:
Laboratory Results
12/16/24
07:17
WBC Pending
Hgb Pending
Hct Pending
Plt Count Pending
Vital Signs:
Vital Signs
Temp Pulse Resp BP Pulse Ox
98.1 F 75 20 136/91 96
12/16/24 07:00 12/16/24 07:00 12/16/24 07:00 12/16/24 07:00 12/16/24 07:00
I&O
12/15/24 12/16/24 12/17/24
06:59 06:59 06:59
Intake Total 780 / 780 1810 / 1810
Output Total 1150 / 1150 600 / 600
Balance -370 / -370 1210 / 1210
[2024-12-16] MEDS: FOLVITE 5 MG PO (09:00)
[2024-12-16] MEDS: VITAMIN B1 100 MG PO ×2 (09:01→19:41)
[2024-12-16] MEDS: NEURONTIN 800 MG PO ×2 (09:01→19:41)
[2024-12-16] MEDS: COLACE 100 MG PO (09:01)
[2024-12-16] MEDS: ROXICODONE 5 MG PO ×2 (09:01→19:41)
[2024-12-16] MEDS: FARXIGA 10 MG PO (09:01)
[2024-12-16] MEDS: LIPITOR 40 MG PO (09:01)
[2024-12-16] MEDS: HEPARIN 5000 UNITS SC ×2 (09:02→19:41)
[2024-12-16 09:07] LABS: Hematocrit 25.7 % (39.0-52.0); Hemoglobin 8.5 g/dL (13.0-18.0); Mean Corp Hgb Conc. 33.1 g/dL (33.0-37.0); Mean Corpuscular Volume 125.4 fL (80.0-94.0); Nucleated Red Blood Cells % 0.7 % (-); Platelet Count 178 10^3/uL (130-400)
[2024-12-16] MEDS: VENTOLIN NEBULES 2.5 MG INH ×2 (11:17→20:11)
[2024-12-16 11:55] LABS: Glucose - Point of Care 125 mg/dl (70-99)
--- NOTE | 2024-12-16 12:01 | CM ---
Reviewed chart and met with pt bedside. Pt was SOB with conversation today. Reinforced that VN will assist with CPAP setup and home O2 if he qualifies. Home O2 eval ordered. Spoke with son Pedro and updated him on discharge plan. PT rec HH.
Plan: Home with [facility]. Being evaluated for home O2.
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
[2024-12-16 15:00] VITALS: BP 110/51
--- NOTE | 2024-12-16 15:52 | PTCARENOTE ---
Received patient this am AAOX3. Pt appeared SOB, MA. Pt 96% on O2 at 2L via nasal cannula. Respiratory Therapist gave patient a treatment. Pt was breathing better. Tolerated diet well. Pt off unit for chest x-ray. Pt placed on Telemetry # 2 as
ordered. Pt SV with PVC's. Offered no complaints. Made patient comfortable. Cont to assess patient status.
--- NOTE | 2024-12-16 16:15 | VNURNOTE ---
Addendum entered by Shelby Petersen RN 12/17/24 09:15:
Rec'ed response from [facility] rep Maxine. Pt did not qualify for CPAP/BIPAP - pCO2 was 35. Advised that pt would need an outpt sleep study. AUGIE Malik and Hospitalist notified.
Original Note:
Chart reviewed. Home 02 test completed- pt did not qualify. Per Hospitalist's note, requesting new home CPAP. This author spoke with Maxine at [facility] - per rep, unsure if pt will qualify for CPAP or BIPAP - sent requested info, awaiting answer.
Faxed to [facility]: [phone].
[2024-12-16 16:38] LABS: Glucose - Point of Care 100 mg/dl (70-99)
[2024-12-16] MEDS: COLACE PO (19:40)
[2024-12-16] MEDS: LASIX 40 MG IV (19:41)
[2024-12-16 22:00] LABS: Glucose - Point of Care 159 mg/dl (70-99)
[2024-12-16 23:29] VITALS: BP 113/61
[2024-12-17] VITALS (9 sets, daily range): BP systolic 103–145; BP diastolic 59–82; PULSE 84–112; O2SAT 97; BMI 42.7
[2024-12-17] MEDS: SYNTHROID 12.5 MCG PO (05:48)
[2024-12-17 07:31] LABS: Glucose - Point of Care 87 mg/dl (70-99)
[2024-12-17 07:42] LABS: Hematocrit 26.3 % (39.0-52.0); Hemoglobin 8.7 g/dL (13.0-18.0); Mean Corp Hgb Conc. 33.1 g/dL (33.0-37.0); Mean Corpuscular Volume 124.6 fL (80.0-94.0); Platelet Count 168 10^3/uL (130-400); Red Cell Dist. Width 20.3 % (11.5-14.5)
[2024-12-17 08:00] LABS: Blood Urea Nitrogen 11 mg/dl (9-20); Calcium 8.2 mg/dl (8.4-10.2); Carbon Dioxide 31 mmol/L (22-30); Chloride 104 mmol/L (98-107); Estimated Creatinine Clearance > 125 ml/min; Glucose 81 mg/dl (70-99); Potassium 3.9 mmol/L (3.5-5.1); Sodium 138 mmol/L (135-145); eGFR > 60.00
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
--- NOTE | 2024-12-17 09:32 | CM ---
Pt does not qualify for home oxygen nor CPAP with current findings. aware.
Continues IV Lasix.
Independent prior to admission.
[facility] Liaison set up [facility] .
PLAN Home with [facility]
[2024-12-17] MEDS: LASIX 40 MG IV ×2 (09:36→16:19)
[2024-12-17] MEDS: VITAMIN B1 100 MG PO ×2 (09:37→20:43)
[2024-12-17] MEDS: LIPITOR 40 MG PO (09:37)
[2024-12-17] MEDS: HEPARIN 5000 UNITS SC ×2 (09:37→20:43)
[2024-12-17] MEDS: FOLVITE 5 MG PO (09:37)
[2024-12-17] MEDS: COLACE 100 MG PO (09:37)
[2024-12-17] MEDS: FARXIGA 10 MG PO (09:37)
[2024-12-17] MEDS: NEURONTIN 800 MG PO ×2 (09:37→20:43)
[2024-12-17] MEDS: ROXICODONE 5 MG PO ×2 (09:38→20:43)
--- NOTE | 2024-12-17 09:48 | VNURNOTE ---
Home Health Liaison met with patient at bedside to discuss [facility] nurse/therapy, visits, schedule and homebound status. Patient is agreeable and understands that visits at home will be 2-3 x per week to assess and teach medical management. Patient
is aware that [facility] will contact them for start of care in 1-2 days after discharge from . Provided contact number for [facility]. See previous note- pt did not qualify for home 02 or CPAP/BIPAP.
[facility] referral accepted in [facility].
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
--- NOTE | 2024-12-17 10:51 | CARDSERVLU ---
Echocardiogram with Lumason completed after protocol screening completed. Allergies verified.
Patent IV site: _existing 22 LH____
IV site flushed with 0.9% NaCl pre and post administration.
Diluted bolus method utilized to enhance visualization of ventricular villalobos.
Total volume given: ___3.0_ mL under direction echosonographer
Patient tolerated all procedures well without complications.
[2024-12-17 11:48] LABS: Glucose - Point of Care 129 mg/dl (70-99)
[2024-12-17] MEDS: TOPROL XL 25 MG PO (12:08)
[2024-12-17 12:31] LABS: Magnesium 1.9 mg/dl (1.6-2.3)
[2024-12-17 16:43] LABS: Glucose - Point of Care 119 mg/dl (70-99)
[2024-12-17] MEDS: COLACE PO (20:43)
[2024-12-17 21:37] LABS: Glucose - Point of Care 102 mg/dl (70-99)
[2024-12-18 03:41] VITALS: BP 114/63
[2024-12-18] MEDS: SYNTHROID 12.5 MCG PO (05:43)
[2024-12-18 06:00] VITALS: BMI 41.6
[2024-12-18 07:00] LABS: Glucose - Point of Care 79 mg/dl (70-99)
[2024-12-18 08:00] VITALS: BP 108/69
[2024-12-18 08:12] LABS: Hematocrit 27.3 % (39.0-52.0); Hemoglobin 9.0 g/dL (13.0-18.0); Mean Corp Hgb Conc. 33.0 g/dL (33.0-37.0); Mean Corpuscular Volume 124.1 fL (80.0-94.0); Platelet Count 172 10^3/uL (130-400); Red Cell Dist. Width 19.3 % (11.5-14.5)
[2024-12-18] MEDS: VITAMIN B1 100 MG PO ×2 (08:43→20:27)
[2024-12-18] MEDS: COLACE 100 MG PO (08:43)
[2024-12-18] MEDS: FARXIGA 10 MG PO (08:43)
[2024-12-18] MEDS: ROXICODONE 5 MG PO ×2 (08:43→20:27)
[2024-12-18] MEDS: LIPITOR 40 MG PO (08:43)
[2024-12-18] MEDS: TOPROL XL 25 MG PO (08:43)
[2024-12-18] MEDS: NEURONTIN 800 MG PO ×2 (08:43→20:27)
[2024-12-18] MEDS: FOLVITE 5 MG PO (08:44)
[2024-12-18] MEDS: HEPARIN 5000 UNITS SC ×2 (08:44→20:27)
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
[2024-12-18 09:03] LABS: Blood Urea Nitrogen 12 mg/dl (9-20); Calcium 8.1 mg/dl (8.4-10.2); Carbon Dioxide 32 mmol/L (22-30); Chloride 101 mmol/L (98-107); Estimated Creatinine Clearance 117 ml/min; Glucose 74 mg/dl (70-99); Potassium 3.5 mmol/L (3.5-5.1); Sodium 137 mmol/L (135-145); eGFR > 60.00
[2024-12-18] MEDS: LASIX 40 MG IV ×2 (10:05→16:21)
[2024-12-18 11:00] VITALS: BP 96/53
[2024-12-18] MEDS: KCL 40 MEQ PO (11:04)
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
--- NOTE | 2024-12-18 11:18 | CM ---
Chart reviewed. Met with pt chairside. IMM given. Remains on IV Lasix.C/O of back pain. SOB with exertion.
Plan: Home with VN
[2024-12-18 11:48] LABS: Glucose - Point of Care 116 mg/dl (70-99)
[2024-12-18 15:00] VITALS: BP 106/61
[2024-12-18 16:52] LABS: Glucose - Point of Care 116 mg/dl (70-99)
[2024-12-18 19:36] VITALS: BP 133/58
[2024-12-18] MEDS: COLACE PO (20:27)
[2024-12-18 21:14] LABS: Glucose - Point of Care 176 mg/dl (70-99)
[2024-12-18 23:13] VITALS: BP 96/60
[2024-12-19] VITALS (8 sets, daily range): BP systolic 97–124; BP diastolic 48–75; BMI 41.6
[2024-12-19] MEDS: SYNTHROID 12.5 MCG PO (06:05)
--- NOTE | 2024-12-19 07:37 | W.PN.HOSP.TC ---
Today's Communication/Plan
-
Given hypotension and syncope today, hold Lasix and resume tomorrow
No need for inhalers
Assessment / Plan
Assessment / Plan
Physical Exam
Gen-awake, alert, NAD
HEENT-NC, AT, anicteric, clear oral mm
Neck-supple
CV-regular, +S1/S2
Lungs-scattered rhonchi
Abd-soft, NT, ND. Positive bowel sounds.
Ext-bilateral lower extremity edema
Musculoskeletal-no cyanosis
Skin-warm and dry, bilateral lower extremity hyperpigmentation
Neuro-grossly non-focal
Psych-calm, cooperative
Assessment/Plan
Presentation with SOB and Fatigue
Presented with suspected syncopal episode while driving
Symptomatic anemia -due to severe folic acid deficiency anemia.
Transfuse 1 unit of blood so far. Hemoglobin down to 7.1 today, will transfuse second unit of blood. Baseline hemoglobin unknown.
Abdominal adenopathy and splenomegaly along with anemia and leukopenia concerning. Denies B symptoms.
Evaluated by hematology in the hospital, recommend outpatient follow-up.
Near syncope/syncope on 12/19/24 morning: suspect volume depleted, hold Lasix today and re-assess in the morning
Pulmonary Edema
Acute Hypoxic Respiratory Failure
Acute Heart Failure
-New hypoxia on 12/16/24 morning -- hypoxia resolved as of 12/17/24 after IV diuresis started on 12/16/24
-ProBNP is quite specific (for acute CHF) for his weight and age
-Given near syncope/syncope on 12/19/24 morning, hold IV Lasix today and reassess on 12/20/24. Likely restart 40 mg daily in AM. Continue stockings.
-Edema suspected from blood transfusion
-Appreciate cardiology
-Change home Lopressor 75 mg daily to Toprol 25 mg daily
Premature Ventricular Complexes
-Check serum magnesium and replace as needed
Alcohol use disorder -last drink was 12/11/24 reportedly. Monitor for withdrawal. Continue thiamine and folic acid, alcohol withdrawal protocol. Abstinence discussed.
Hyponatremia -POA, improved
Hypothyroidism -TSH 16.60, free T4 normal at 0.82. Hypothyroidism would explain his presentation with fatigue. Levothyroxine started.
Bilateral lower extremity edema -primarily lymphedema. Venous Doppler ultrasound negative for DVT.
DM 2 without hyperglycemia -hemoglobin A1c 4.9% but likely not reliable in the setting of anemia. On Jardiance at home.
Currently on Farxiga in the hospital. Has not needed sliding scale Insulin.
Subacute left-sided rib fractures -nondisplaced, #4, 5, and 6. Patient states he fell a few weeks ago. Suspect may have been related to drinking alcohol.
Bilateral pleural effusions - noted on CT. Small to moderate on the right, trace on the left. Mild atelectasis.
Essential hypertension -blood pressure readings are labile. Need to ensure we are using properly sized cuff.
Hyperlipidemia - Atorvastatin.
Chronic pain syndrome/chronic opiate dependence
FLORENCIA/obesity hypoventilation syndrome -intolerant of CPAP. Does not see pulmonary. He is trying to pursue Inspira device.
Patient willing to try CPAP in the hospital to help with his sleepiness -- nurse as of 12/17/24 reported that patient hasn't used much CPAP here in the hospital. No retention noted on ABG.
Will try to arrange for home CPAP, patient motivated to try. Discussed with case management.
Per Shelby Petersen, this patient did not qualify for home oxygen or CPAP/BIPAP; DME compliance representative dealer had advised for patient to have an outpatient sleep study and then could possibly qualify - would need Pulm follow up
Will need to see pulmonary after discharge for updated sleep study. Discussed with patient and family.
-On 12/19/24, I spoke extensively with printing equipment mechanic Dr. Cohen, discussed patient's case in detail, as per our discussion, no PFTs to be done while patients are in heart failure, no need for inhalers right now, patient just needs more time being
diuresed, patient is mostly deconditioned and need aggressive rehab. Appreciate pulmonary input.
Great left toe nail is growing into his second toe and causing a full thickness wound
-Outpatient PCP/podiatry consult
Morbid obesity due to excess calories
Full code
PT/OT -Home health recommended.
Close outpatient follow-up with PCP, hematology, pulmonary.
Anticipated Discharge: > 48 hours
Subjective/Interval History
-
Date of Service: December 19, 2024
Patient was seen and examined. He had an episode of near syncope today when he was hypotensive.
Objective Data
-
Labs:
Laboratory Results
12/19/24
06:56
WBC Pending
Hgb Pending
Hct Pending
Plt Count Pending
Sodium Pending
Potassium Pending
Chloride Pending
Carbon Dioxide Pending
BUN Pending
Creatinine Pending
Glucose Pending
Calcium Pending
Vital Signs:
Vital Signs
Temp Pulse Resp BP Pulse Ox
98.2 F 103 20 99/59 93
12/19/24 03:42 12/19/24 03:42 12/19/24 03:42 12/19/24 03:42 12/19/24 03:42
I&O
12/18/24 12/19/24 12/20/24
06:59 06:59 06:59
Intake Total 1200 / 1200 1080 / 1080
Output Total 3150 / 3150 1924
Balance -1950 / -1950 -845 / -845
[2024-12-19 07:58] LABS: Hematocrit 26.9 % (39.0-52.0); Hemoglobin 9.0 g/dL (13.0-18.0); Mean Corp Hgb Conc. 33.5 g/dL (33.0-37.0); Mean Corpuscular Volume 123.4 fL (80.0-94.0); Platelet Count 167 10^3/uL (130-400); Red Cell Dist. Width 18.7 % (11.5-14.5)
[2024-12-19 08:04] LABS: Glucose - Point of Care 71 mg/dl (70-99)
[2024-12-19 08:33] LABS: Blood Urea Nitrogen 15 mg/dl (9-20); Calcium 8.4 mg/dl (8.4-10.2); Carbon Dioxide 33 mmol/L (22-30); Chloride 100 mmol/L (98-107); Estimated Creatinine Clearance 117 ml/min; Glucose 82 mg/dl (70-99); Magnesium 1.8 mg/dl (1.6-2.3); Potassium 3.6 mmol/L (3.5-5.1); Sodium 137 mmol/L (135-145); eGFR > 60.00
[2024-12-19] MEDS: FARXIGA 10 MG PO (08:40)
[2024-12-19] MEDS: FOLVITE 5 MG PO (08:41)
[2024-12-19] MEDS: LIPITOR 40 MG PO (08:42)
[2024-12-19] MEDS: NEURONTIN 800 MG PO ×2 (08:42→21:42)
[2024-12-19] MEDS: VITAMIN B1 100 MG PO ×2 (08:42→21:41)
[2024-12-19] MEDS: HEPARIN 5000 UNITS SC ×2 (08:43→21:40)
[2024-12-19] MEDS: COLACE 100 MG PO ×2 (08:43→21:40)
[2024-12-19] MEDS: LASIX 40 MG IV (08:43)
[2024-12-19 09:02] LABS: Glucose - Point of Care 74 mg/dl (70-99)
[2024-12-19] MEDS: TOPROL XL PO (09:02)
[2024-12-19] MEDS: ROXICODONE PO (09:04)
[2024-12-19 11:50] LABS: B.E. 4.1 mmol/L; HCO3 28.5 mmol/L (21-28); O2 Saturation % 96.8 % (94-98); PCO2 41 mmHg (35-48); PO2 77 mmHg (83-108)
[2024-12-19 12:24] LABS: Glucose - Point of Care 130 mg/dl (70-99)
[2024-12-19] MEDS: KCL 40 MEQ PO (13:18)
--- NOTE | 2024-12-19 13:49 | W.PN.CARDCBS ---
Addendum entered and electronically signed by Bandar Kaplan MD 12/19/24 16:54:
I saw and examined the patient.
The Electrician Helper's note was reviewed and I agree with the note.
Comment:
GEN: No distress, awake, Ox3
HEENT: supple, anicteric, mmm
LUNGS: CTA, no wheezes/rales
CV: Reg, S1/S2, 1/6 syst LSB, no gallop
ABD: soft, BS+, NT/ND
EXT: + edema
NEURO: Gross non-focal
SKIN: No rash
PLan:
Had episode of dizziness and near syncope today. Head CT overall unremarkable. Suspect volume depleted.
Hold Lasix today and reassess in AM. Likely restart 40 mg daily in AM. Continue stockings.
Continue Toprol and Farxiga.
CHF education
Original Note:
Today's Communication / Plan
-
hold lasix today given dizziness, suspect dry. transition to po lasix 40mg daily in AM
cont tubigrip stockings
replete K/mag
Impression / Plan
-
Primary Protection Engineer: last seen by Dr. Holm 2015
PCP: Dr. Plasencia
Assessment:
Presentation with suspected syncopal episode
Acute anemia, macrocytic
Acute CHF, unknown type
B/L LE edema
RBBB
FLORENCIA
HTN
HLD
OA s/p L TKA
s/p laminectomy and spinal fusion
Former smoker/ETOH
Recent falls with rib fractures of L 4th, 5th, 6th ribs
Adenopathy and splenomegaly by CTAP 12/12/24
ECHO 12/17/24: EF 67%, aortic sclerosis
Plan:
- Patient presented with suspected syncopal episode while driving. On arrival noted to have acute on chronic anemia, macrocytic and received transfusion. Hemoglobin 8.7 on 12/17. Also with adenopathy and splenomegaly by CT of the abdomen and
pelvis 12/12. Hematology/oncology following. Receiving folate/B vitamin repletion
- With diuresis, weight down approximately 15 pounds from admission. This morning noted to experience some dizziness and hypotension. [place] to be dry. Will hold additional Lasix today and transition to p.o. Lasix starting in a.m. was not on
diuretic prior to admission, will plan to place on 40 mg p.o. Lasix daily. Creatinine remained stable at 1.
- Replete potassium and magnesium. BMP in 1 week upon DC
- continue compression stockings. LE edema felt to be multifactorial, suspect also component of lymphedema
- Echo with results as above, EF preserved
- In sinus rhythm with PVCs on review of telemetry overnight. toprol 25mg daily added 12/17, was reportedly on lopressor 75mg daily prior to admission?
- Continue outpatient Farxiga for both diabetes and CHF
- Continue outpatient Lipitor
- TSH elevated with compensated free T4. treatment per primary service
- will arrange OP cardiac follow up
Progress Note - Protection Engineer
Subjective
Date of Service: December 19, 2024
reported dizziness this morning, now improved
Objective
Labs:
12/19/24 06:56
12/19/24 06:56
Labs
Hgb 9.0 g/dL (13.0-18.0) L 12/19/24 06:56
Hct 26.9 % (39.0-52.0) L 12/19/24 06:56
Plt Count 167 10^3/uL (130-400) 12/19/24 06:56
PT 14.6 Sec (11.4-14.6) 12/12/24 14:48
INR 1.09 12/12/24 14:48
APTT 36.2 Sec (23.4-35.0) H 12/12/24 14:48
Sodium 137 mmol/L (135-145) 12/19/24 06:56
Potassium 3.6 mmol/L (3.5-5.1) 12/19/24 06:56
BUN 15 mg/dl (9-20) 12/19/24 06:56
Creatinine 1.0 mg/dL (0.7-1.3) 12/19/24 06:56
Glucose 82 mg/dl (70-99) 12/19/24 06:56
Vital Signs and I&O:
Vital Signs
Temp Pulse Resp BP Pulse Ox
97.5 F 102 22 110/56 100
12/19/24 11:46 12/19/24 11:46 12/19/24 11:46 12/19/24 11:46 12/19/24 11:46
Vital Signs
Temp Pulse Resp BP Pulse Ox
97.5 F 102 22 110/56 100
12/19/24 11:46 12/19/24 11:46 12/19/24 11:46 12/19/24 11:46 12/19/24 11:46
Intake & Output
12/17/24 12/18/24 12/19/24 12/20/24
07:59 07:59 07:59 07:59
Intake Total 960 / 960 1200 / 1200 1080 / 1080
Output Total 2375 / 2375 3150 / 3150 1925 / 1925
Balance -1415 / -1415 -1950 / -1950 -845 / -845
Physical Exam
Physical Exam
GEN: No distress, awake, alert, oriented x3. Obese. Sitting in chair
HEENT: supple, anicteric, mmm, EOMI
LUNGS: CTA bilaterally, no wheezes/rales
CV: Reg, S1/S2, no murmur
ABD: soft, BS+, NT/ND
EXT: No cyanosis, clubbing. 3+ edema of bilateral lower extremity to level of knee, tubigrip stockings in place
NEURO: Gross non-focal
SKIN: Warm, pink, dry. No rash
--- NOTE | 2024-12-19 15:10 | CM ---
Chart reviewed. Met with at bedside. Had dizziness this morning, Converting to PO lasix.
Plan: D/C home with [facility]
--- NOTE | 2024-12-19 15:26 | WOUNDNOTE ---
LEFT GREAT TOE AND SECOND TOE WOUND
--- NOTE | 2024-12-19 15:58 | WOUNDNOTE ---
[facility] RN note: Patient admitted with MA on exertion
See H&P for complete history.
PMH: Diffuse Adenopathy
Left-Sided Rib Fractures s/p Fall
Benign Hypertension - currently hypotensive
DM-II
Morbid Obesity due to excess calories
Alcohol Use Disorder
Wound Location and type/assessment: Patient with full thickness wound of left second toe caused by nail of great toe. Great toe nail has grown into second toe. Patient reports this issue has been going on for 'a few months.' Patient has a
Concrete Pile Driver Operator he sees but has not been there in 2 years. The wound has a slight odor, but not redness or erythema noted. Some MASD noted in sacral crease, heels intact.
Appetite: Fair
Pressure redistribution devices in place: Versa Care Accumax, patient turns in bed, heels off-loaded with pillow under calves.
Plan: Wound care provided to left second toe and dressing applied to separate to first and second toe. TT Dr. Grier with update and will defer to him for Podiatry consult. RN Valentino given update. Updated care plan and will follow as needed.
[2024-12-19] MEDS: MAGNESIUM OXIDE 400 MG PO (16:16)
[2024-12-19 16:40] LABS: Glucose - Point of Care 107 mg/dl (70-99)
[2024-12-19 21:37] LABS: Glucose - Point of Care 140 mg/dl (70-99)
[2024-12-19] MEDS: ROXICODONE 5 MG PO (21:43)
[2024-12-20] VITALS (8 sets, daily range): BP systolic 103–126; BP diastolic 52–75; O2SAT 96; BMI 41.7
[2024-12-20 07:13] LABS: Hematocrit 28.4 % (39.0-52.0); Hemoglobin 9.2 g/dL (13.0-18.0); Mean Corp Hgb Conc. 32.4 g/dL (33.0-37.0); Mean Corpuscular Volume 123.5 fL (80.0-94.0); Platelet Count 174 10^3/uL (130-400); Red Cell Dist. Width 18.6 % (11.5-14.5)
[2024-12-20 07:45] LABS: Glucose - Point of Care 72 mg/dl (70-99)
[2024-12-20 07:45] LABS: Blood Urea Nitrogen 15 mg/dl (9-20); Calcium 8.2 mg/dl (8.4-10.2); Carbon Dioxide 33 mmol/L (22-30); Chloride 101 mmol/L (98-107); Estimated Creatinine Clearance 117 ml/min; Glucose 89 mg/dl (70-99); Magnesium 2.1 mg/dl (1.6-2.3); Potassium 4.3 mmol/L (3.5-5.1); Sodium 138 mmol/L (135-145); eGFR > 60.00
--- NOTE | 2024-12-20 08:14 | W.PN.HOSP.TC ---
Today's Communication/Plan
-
Transition to PO Lasix
Patient states he does not have home arrangements made yet, but will be ready tomorrow for discharge
Monitor patient overnight for any clinical deterioration as he is transitioned to PO Lasix
Blood pressures have improved
Assessment / Plan
Assessment / Plan
Physical Exam
Gen-awake, alert, NAD
HEENT-NC, AT, anicteric, clear oral mm
Neck-supple
CV-regular, +S1/S2
Lungs-scattered rhonchi
Abd-soft, NT, ND. Positive bowel sounds.
Ext-bilateral lower extremity edema
Musculoskeletal-no cyanosis
Skin-warm and dry, bilateral lower extremity hyperpigmentation
Neuro-grossly non-focal
Psych-calm, cooperative
Assessment/Plan
Presentation with SOB and Fatigue
Presented with suspected syncopal episode while driving
Symptomatic anemia -due to severe folic acid deficiency anemia.
Total of 2 units PRBCs transfused.
Abdominal adenopathy and splenomegaly along with anemia and leukopenia concerning. Denies B symptoms.
Evaluated by hematology in the hospital, recommend outpatient follow-up.
Near syncope/syncope on 12/19/24 morning: suspect volume depleted, hold Lasix today and re-assess in the morning
Acute pulmonary edema due to heart failure
Acute Hypoxic Respiratory Failure
Acute Heart Failure with Preserved Ejection Fraction -- suspected new diagnosis
Acute pulmonary edema due to heart failure with preserved ejection fraction
-New hypoxia on room air on 12/16/24 morning -- hypoxia resolved as of 12/17/24 after IV diuresis started on 12/16/24
-ProBNP is quite specific (for acute CHF) for his weight and age
-Given near syncope/syncope on 12/19/24 morning, held IV Lasix on 12/19/24. Resume Lasix 40 mg daily. Continue stockings.
-Edema suspected from blood transfusion
-Appreciate cardiology
-Change home Lopressor 75 mg daily to Toprol 25 mg daily
-As of 12/20/24, no home oxygen needs -- lowest oxygen saturation was 94% during ambulation
Premature Ventricular Complexes
-Check serum magnesium and replace as needed
Alcohol use disorder -last drink was 12/11/24 reportedly. Monitor for withdrawal. Continue thiamine and folic acid, alcohol withdrawal protocol. Abstinence discussed.
Hyponatremia -POA, improved
Subclinical Hypothyroidism -TSH 16.60, free T4 normal at 0.82. Subclinical Hypothyroidism would explain his presentation with fatigue. Levothyroxine started.
Bilateral lower extremity edema -primarily lymphedema. Venous Doppler ultrasound negative for DVT.
DM 2 without hyperglycemia -hemoglobin A1c 4.9% but likely not reliable in the setting of anemia. On Jardiance at home.
Currently on Farxiga in the hospital. Has not needed sliding scale Insulin.
Subacute left-sided rib fractures -nondisplaced, #4, 5, and 6. Patient states he fell a few weeks ago. Suspect may have been related to drinking alcohol.
Bilateral pleural effusions - noted on CT. Small to moderate on the right, trace on the left. Mild atelectasis.
Essential hypertension -blood pressure readings are labile. Need to ensure we are using properly sized cuff.
Hyperlipidemia - Atorvastatin.
Chronic pain syndrome/chronic opiate dependence
FLORENCIA/obesity hypoventilation syndrome -intolerant of CPAP. Does not see pulmonary. He is trying to pursue Inspira device.
Patient willing to try CPAP in the hospital to help with his sleepiness -- nurse as of 12/17/24 reported that patient hasn't used much CPAP here in the hospital. No retention noted on ABG.
Will try to arrange for home CPAP, patient motivated to try. Discussed with case management.
Per Shelby Petersen, this patient did not qualify for home oxygen or CPAP/BIPAP; DME mechanical service representative had advised for patient to have an outpatient sleep study and then could possibly qualify - would need Pulm follow up
Will need to see pulmonary after discharge for updated sleep study. Discussed with patient and family.
-On 12/19/24, I spoke extensively with us customs and border officer Dr. Cohen, discussed patient's case in detail, as per our discussion, no PFTs to be done while patients are in heart failure, no need for inhalers right now, patient just needs more time being
diuresed, patient is mostly deconditioned and need aggressive rehab. Appreciate pulmonary input.
Great left toe nail is growing into his second toe and causing a full thickness wound
-Outpatient PCP/podiatry consult
Morbid obesity due to excess calories
Full code
PT/OT -Home health recommended.
Close outpatient follow-up with PCP, hematology, pulmonary.
Anticipated Discharge: Within 24 hours
Subjective/Interval History
-
Date of Service: December 20, 2024
Patient was seen and examined. He reported feeling better today.
Objective Data
-
Labs:
Laboratory Results
12/20/24
06:31
WBC 2.9 L
Hgb 9.2 L
Hct 28.4 L
Plt Count 174
Sodium 138
Potassium 4.3
Chloride 101
Carbon Dioxide 33 H
BUN 15
Creatinine 1.0
Glucose 89
Calcium 8.2 L
Vital Signs:
Vital Signs
Temp Pulse Resp BP Pulse Ox
98.2 F 98 16 124/73 95
12/20/24 03:34 12/20/24 03:34 12/20/24 03:34 12/20/24 03:34 12/20/24 03:34
I&O
12/19/24 12/20/24 12/21/24
06:59 06:59 06:59
Intake Total 1080 / 1080 690 / 690
Output Total 1924 925 / 925
Balance -845 / -845 -235 / -235
[2024-12-20] MEDS: FOLVITE 5 MG PO (08:24)
[2024-12-20] MEDS: VITAMIN B1 100 MG PO ×2 (08:24→19:57)
[2024-12-20] MEDS: NEURONTIN 800 MG PO ×2 (08:24→19:57)
[2024-12-20] MEDS: LIPITOR 40 MG PO (08:25)
[2024-12-20] MEDS: FARXIGA 10 MG PO (08:25)
[2024-12-20] MEDS: ROXICODONE 5 MG PO ×2 (08:25→19:57)
[2024-12-20] MEDS: COLACE 100 MG PO (08:25)
[2024-12-20] MEDS: SYNTHROID 12.5 MCG PO (08:25)
[2024-12-20] MEDS: TOPROL XL 25 MG PO (08:25)
[2024-12-20] MEDS: HEPARIN 5000 UNITS SC ×2 (08:26→19:57)
[2024-12-20 09:06] LABS: Albumin 2.8 g/dl (3.5-5.0)
--- NOTE | 2024-12-20 09:14 | W.PN.CARDCBS ---
Today's Communication / Plan
-
Clinically looks better.
Resume Lasix 40 mg p.o. daily today.
Would continue Toprol 25 mg daily and Farxiga 10 mg daily
Creat 1.0-
If feels well and ambulating today would be stable for discharge.
Will arrange cardiology follow-up
Impression / Plan
-
Primary Community Support Specialist: last seen by Dr. Holm 2015
PCP: Dr. Plasencia
Assessment:
Presentation with suspected syncopal episode
Acute anemia, macrocytic
Acute CHF, unknown type
B/L LE edema
RBBB
FLORENCIA
HTN
HLD
OA s/p L TKA
s/p laminectomy and spinal fusion
Former smoker/ETOH
Recent falls with rib fractures of L 4th, 5th, 6th ribs
Adenopathy and splenomegaly by CTAP 12/12/24
ECHO 12/17/24: EF 67%, aortic sclerosis
Plan:
- Patient presented with suspected syncopal episode while driving. On arrival noted to have acute on chronic anemia, macrocytic and received transfusion. Hemoglobin 8.7 on 12/17. Also with adenopathy and splenomegaly by CT of the abdomen and
pelvis 12/12. Hematology/oncology following. Receiving folate/B vitamin repletion
- With diuresis, weight down approximately 15 pounds from admission.
-No further dizziness today and feeling better. Would restart Lasix 40 mg p.o. daily. Would continue as outpatient if feels well.
- continue compression stockings. LE edema felt to be multifactorial, suspect also component of lymphedema
- Echo with results as above, EF preserved
- In sinus rhythm with PVCs on review of telemetry overnight. toprol 25mg daily added 12/17, was reportedly on lopressor 75mg daily prior to admission?
- Continue outpatient Farxiga for both diabetes and CHF
- Continue outpatient Lipitor
- TSH elevated with compensated free T4. treatment per primary service
- If tolerating 40 mg p.o. daily stable for discharge
Progress Note - Community Support Specialist
Subjective
Date of Service: December 20, 2024
No further dizziness and feeling better
Objective
Labs:
12/20/24 06:31
12/20/24 06:31
Labs
Hgb 9.2 g/dL (13.0-18.0) L 12/20/24 06:31
Hct 28.4 % (39.0-52.0) L 12/20/24 06:31
Plt Count 174 10^3/uL (130-400) 12/20/24 06:31
PT 14.6 Sec (11.4-14.6) 12/12/24 14:48
INR 1.09 12/12/24 14:48
APTT 36.2 Sec (23.4-35.0) H 12/12/24 14:48
Sodium 138 mmol/L (135-145) 12/20/24 06:31
Potassium 4.3 mmol/L (3.5-5.1) 12/20/24 06:31
BUN 15 mg/dl (9-20) 12/20/24 06:31
Creatinine 1.0 mg/dL (0.7-1.3) 12/20/24 06:31
Glucose 89 mg/dl (70-99) 12/20/24 06:31
Vital Signs and I&O:
Vital Signs
Temp Pulse Resp BP Pulse Ox
97.4 F 107 20 116/73 99
12/20/24 08:27 12/20/24 08:27 12/20/24 08:27 12/20/24 08:27 12/20/24 08:27
Vital Signs
Temp Pulse Resp BP Pulse Ox
97.4 F 107 20 116/73 99
12/20/24 08:27 12/20/24 08:27 12/20/24 08:27 12/20/24 08:27 12/20/24 08:27
Intake & Output
12/18/24 12/19/24 12/20/24 12/21/24
06:59 06:59 06:59 06:59
Intake Total 1200 / 1200 1080 / 1080 690 / 690
Output Total 3150 / 3150 5 / 192 925 / 925
Balance -1950 / -1950 -845 / -845 -235 / -235
Physical Exam
Physical Exam
GEN: No distress, awake, Ox3
HEENT: supple, anicteric, mmm
LUNGS: CTA, no wheezes/rales
CV: Reg, S1/S2, 1/6 syst LSB, no gallop
ABD: soft, BS+, NT/ND
EXT: No edema
NEURO: Gross non-focal
SKIN: No rash
--- NOTE | 2024-12-20 09:35 | PN.CDI ---
CDI
- -
CDI:
Physician Documentation Request
Admit Date: 12/12/24 20:48
Dear Doctor Cherrie,
Please review the following and provide your response in the progress notes.
Clinical Indicators:
PN, 12/19
#Pulmonary Edema
#Acute Heart Failure
#...-ProBNP is quite specific (for acute CHF) for his weight and age
#...-Edema suspected from blood transfusion
Cardiology PN, 12/20
#Acute CHF, unknown type
#ECHO 12/17/24: EF 67%, aortic sclerosis
#...- Echo with results as above, EF preserved
Based on the above and your clinical assessment, please clarify the acuity and etiology of the acute heart failure/pulmonary edema:
Acute pulmonary edema due to heart failure (please specify type and acuity)
-Acute Diastolic HF
-Acute on Chronic Diastolic HF
-Acute Systolic HF
-Acute on Chronic Systolic HF
Acute non-cardiac pulmonary edema due to fluid overload
Other(please specify)
Use of terms such as suspected, likely, concern for, or probable (associated with a specific diagnosis that is being evaluated, monitored, or treated as if it exists) are acceptable and can be coded in the inpatient setting, when documented at the
time of discharge.
Thank you,
Angélica Hughes RN BSN CCDS
CDI Specialist
Please contact via tiger text
Please use your independent medical judgment in providing your response.
[2024-12-20 12:09] LABS: Glucose - Point of Care 97 mg/dl (70-99)
--- NOTE | 2024-12-20 15:23 | CM ---
Met with pt bedside. No change in DC plans.
Plan:Pt to be discharged to home with VN tomorrow.
[2024-12-20 16:42] LABS: Glucose - Point of Care 101 mg/dl (70-99)
[2024-12-20 21:16] LABS: Glucose - Point of Care 120 mg/dl (70-99)
[2024-12-20] MEDS: COLACE PO (21:47)
[2024-12-21 03:40] VITALS: BP 108/71
[2024-12-21 06:00] VITALS: BMI 41.6
[2024-12-21 07:00] VITALS: BP 94/60
[2024-12-21 07:07] LABS: Glucose - Point of Care 90 mg/dl (70-99)
[2024-12-21] MEDS: NEURONTIN 800 MG PO (08:17)
[2024-12-21] MEDS: SYNTHROID 12.5 MCG PO (08:18)
[2024-12-21] MEDS: FARXIGA 10 MG PO (08:18)
[2024-12-21] MEDS: ROXICODONE 5 MG PO (08:18)
[2024-12-21] MEDS: LIPITOR 40 MG PO (08:19)
[2024-12-21] MEDS: VITAMIN B1 100 MG PO (08:19)
[2024-12-21] MEDS: HEPARIN 5000 UNITS SC (08:19)
[2024-12-21] MEDS: TOPROL XL PO (08:20)
[2024-12-21] MEDS: COLACE PO (08:25)
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
[2024-12-21 10:51] VITALS: BP 108/58
[2024-12-21 11:44] LABS: Glucose - Point of Care 104 mg/dl (70-99)
[2024-12-21] MEDS: LASIX 40 MG PO (12:14)
[2024-12-21 12:18] VITALS: BP 111/77
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
[2024-12-21 15:15] VITALS: BP 98/48
--- NOTE | 2024-12-21 15:28 | CM ---
Patient has been medically cleared for discharge to home with KAYE RN, PT/OT services. Patient arranged for transport home.
[2024-12-21] MEDS: FLUZONE (6 mos+) 2025-2026 FORMULA 0.5 ML IM (15:44)
[2024-12-21] MEDS: FOLVITE PO (15:51)
== END 2024-12-21 17:33 | disposition home health service (06) | DRG 811 ==
LOC: 4 EAST ACU 20:48
PROVIDERS: Clinical Nurse Specialist Family Health; Hospitalist; Physician Assistant; ADMITTING PHYSICIAN Hospitalist; ATTENDING PHYSICIAN Hospitalist; CONSULT PHYSICIAN Internal Medicine Cardiovascular Disease; EMERGENCY PHYSICIAN Emergency Medicine; FAMILY PHYSICIAN Physician Assistant; OTHER PHYSICIAN Internal Medicine Hematology & Oncology
PROC: 30233N1 Transfusion of Nonautologous Red Blood Cells into Peripheral Vein, Percutaneous Approach (ICD-10-PCS; 2024-12-12)
PROC: 3E02340 Introduction of Influenza Vaccine into Muscle, Percutaneous Approach (ICD-10-PCS; 2024-12-21)
DX: D64.9 Anemia, unspecified (principal); I50.31 Acute diastolic (congestive) heart failure; J96.01 Acute respiratory failure with hypoxia; J81.0 Acute pulmonary edema; E87.1 Hypo-osmolality and hyponatremia; J98.11 Atelectasis; F11.20 Opioid dependence, uncomplicated; Z68.41 Body mass index [BMI] 40.0-44.9, adult; J90 Pleural effusion, not elsewhere classified; Z87.891 Personal history of nicotine dependence; I11.0 Hypertensive heart disease with heart failure; I95.9 Hypotension, unspecified; E11.51 Type 2 diabetes mellitus with diabetic peripheral angiopathy without gangrene; E11.649 Type 2 diabetes mellitus with hypoglycemia without coma; F10.10 Alcohol abuse, uncomplicated; E66.01 Morbid (severe) obesity due to excess calories; Z23 Encounter for immunization; G89.29 Other chronic pain; Z79.899 Other long term (current) drug therapy; Z91.199 Patient's noncompliance with other medical treatment and regimen due to unspecified reason
CPT/HCPCS: 36430; 36600; 70450; 71046; 71260; 74177; 80048; 80053; 80061; 80306; 80307; 81003; 81015; 82010; 82040; 82077; 82607; 82728; 82746; 82805; 82962; 82977; 83010; 83036; 83090; 83540; 83550; 83615; 83735; 83880; 83921; 83935; 84100; 84300; 84439; 84443; 84484; 85025; 85027; 85045; 85610; 85730; 86850; 86880; 86900; 86901; 86920; 90656; 93005; 93306; 93970; 94640; 94660; 97162; 97166; 97530; 97535; 99285; G0008; P9016; Q9950; Q9967

== ENCOUNTER → 2024-12-26 07:09 | Outpatient (REF) | payer OTHER, SELFPAY ==
[2024-12-26 08:58] LABS: Hematocrit 26.9 % (39.0-52.0); Hemoglobin 8.8 g/dL (13.0-18.0); Mean Corp Hgb Conc. 32.7 g/dL (33.0-37.0); Mean Corpuscular Volume 117.5 fL (80.0-94.0); Nucleated Red Blood Cells % 0 % (-); Platelet Count 229 10^3/uL (130-400); Red Cell Dist. Width 18.5 % (11.5-14.5)
[2024-12-26 10:19] LABS: ALT (SGPT) 22 U/L (0-50); AST (SGOT) 36 U/L (17-59); Albumin 3.0 g/dl (3.5-5.0); Alkaline Phosphatase 98 U/L (38-126); Blood Urea Nitrogen 14 mg/dl (9-20); Calcium 8.3 mg/dl (8.4-10.2); Carbon Dioxide 31 mmol/L (22-30); Chloride 102 mmol/L (98-107); Glucose 93 mg/dl (70-99); Magnesium 2.3 mg/dl (1.6-2.3); Potassium 4.3 mmol/L (3.5-5.1); Sodium 137 mmol/L (135-145); Total Protein 6.3 g/dl (6.3-8.2); eGFR > 60.00
== END ==
LOC: HWLAB 07:09
PROVIDERS: ATTENDING PHYSICIAN Physician Assistant
DX: Z09 Encounter for follow-up examination after completed treatment for conditions other than malignant neoplasm (principal); D52.9 Folate deficiency anemia, unspecified; I50.9 Heart failure, unspecified; I95.9 Hypotension, unspecified; R79.0 Abnormal level of blood mineral
CPT/HCPCS: 36415; 80053; 83735; 85025

== ENCOUNTER 2024-12-28 04:18 | Inpatient (IN) | payer OTHER, SELFPAY ==
[2024-12-27 16:46] VITALS: BP 116/60
[2024-12-27 17:20] LABS: Hematocrit 28.1 % (39.0-52.0); Hemoglobin 8.9 g/dL (13.0-18.0); Mean Corp Hgb Conc. 31.7 g/dL (33.0-37.0); Mean Corpuscular Volume 120.6 fL (80.0-94.0); Nucleated Red Blood Cells % 0 % (-); Platelet Count 252 10^3/uL (130-400); Red Cell Dist. Width 18.6 % (11.5-14.5)
[2024-12-27 17:38] LABS: ALT (SGPT) 25 U/L (0-50); AST (SGOT) 39 U/L (17-59); Albumin 3.1 g/dl (3.5-5.0); Alkaline Phosphatase 117 U/L (38-126); Blood Urea Nitrogen 11 mg/dl (9-20); Calcium 8.6 mg/dl (8.4-10.2); Carbon Dioxide 31 mmol/L (22-30); Chloride 103 mmol/L (98-107); Glucose 106 mg/dl (70-99); Potassium 4.3 mmol/L (3.5-5.1); Sodium 136 mmol/L (135-145); Total Protein 6.6 g/dl (6.3-8.2); eGFR > 60.00
--- NOTE | 2024-12-27 22:10 | ED.GENMED ---
History of Present Illness
<TRISTAN Chairze - Last Filed: 12/28/24 02:45>
General
Chief Complaint: Abnormal Lab Value
Source: patient
Exam Limitations: none
Time Seen by Provider: 12/27/24 22:07
Nursing documentation reviewed up to this point in time: agreed with
History of Present Illness
History of Present Illness:
Patient is a 59-year-old male with past medical history of hypertension diabetes obesity alcohol use disorder. Sent to the ER for evaluation by family doctor for abnormal labs. Patient was recently admitted for symptomatic anemia rib fractures and
did develop heart failure at that time after blood transfusion.
Patient c/o of lower extremity swelling and shortness of breath and fatigue for past 2 days . He denies chest pain. Pt is on lasix and did take 40 mg today. He denies chest pain, cough, fever/chills
Past History
<TRISTAN Chairez - Last Filed: 12/28/24 02:45>
Past History
ED Past Medical History: HTN and Other (Lumbar laminectomy 1996, lumbar fusion 1997, left knee total replacement, hypertension, hyperlipidemia); Negative IDDM
Social History
Tobacco: Former smoker
Alcohol: Occasional
Drug: None
Personal:
Living: with family
Employment: Employed
Family History
Family History: CAD and Other (breast cancer)
Review of Systems
<TRISTAN Chairez - Last Filed: 12/28/24 02:45>
Review of Systems
Allergies reviewed?: Yes
All Other Systems: ROS reviewed and negative except as documented in HPI and ROS
Phy Exam
<TRISTAN Chairez - Last Filed: 12/28/24 02:45>
General Physical Exam
General Presentation: no apparent distress
General age: appears stated age
General Skin: warm and dry
General Habitus: obese
General Mental: alert
General Hydration: appears well hydrated
Cardiovascular Exam
Cardiovascular Exam: regular rate/rhythm and no murmur
Pulmonary Exam
Pulmonary Exam: lungs clear, no respiratory distress and other (Dyspneic with exertion)
Neurological Exam
Neurological Exam: alert and oriented x3
Musculoskeletal Exam
Musculoskeletal Exam: other (Increased lower extremity edema to bilateral legs ankles and feet)
Skin Exam
Skin Exam: normal color and warm/dry
Psychiatric Exam
Psychiatric Exam: normal mood/affect
Course
<TRISTAN Chairez - Last Filed: 12/28/24 02:45>
Orders/Labs/Results
Orders:
Orders
12/27/24 16:54
Type+Screen Urgent
Complete Blood Count/With Diff Urgent
Comprehensive Metabolic Panel Urgent
NT-proBNP Urgent
12/27/24 22:53
Add On- LAB Urgent
Tests Added?: cardiac BNP
Chest [CR Chest - 2 Views ] Urgent
Comment:
Reason For Exam: sob
12/28/24 00:23
Gabapentin [Neurontin] 800 mg PO NOW STA
Oxycodone [Roxicodone] 5 mg PO NOW STA
12/28/24 01:32
EKG [Electrocardiogram (*1)] Stat
Reason for Study: Chest Pain
12/28/24 02:37
Furosemide [Lasix] 40 mg IV NOW STA
12/28/24 03:40
Admit/Transfer Patient As Directed
Co-Sign Provider:
Level of Care: Inpatient admission
Assign to:: Telemetry
Physician / Group: Cuong
Diagnosis: CHF
Reason for Telemetry: Acute Heart Failure
Date to Stop Telemetry: 12/31/24
Time to Stop Telemetry: 11:00
Reason for Hospitalization: CHF
Expected length of stay greater than two midnights?: Yes
ELOS- Estimated Length of Stay in days: 3
I certify the patient meets the requirements for IP care: Yes
PRN Pain Medication Management As Directed
May give lesser potent ordered pain med per pt: Yes
preference::
Protocol:: Medication orders for pain may be administered in a
manner that supports deferring to patient preference
when the pt is:
- Requesting an ordered lesser potent pain medication.
Least to most potent pain medications are defined
as: acetaminophen < NSAID < tramadol < opioids
(morphine, oxycodone, hydromorphone).
- Requesting a lesser dose of the same medication IF
ORDERED.
- Requesting a less intrusive route of administration
if both routes are prescribed by the provider (PO <
IV).
12/28/24 03:42
Code Status As Directed
Resuscitation Status: Full Code
12/28/24 05:09
Basic Metabolic Panel IN AM
Complete Blood Count/No Diff IN AM
12/28/24 05:51
Acetaminophen [Tylenol] 650 mg PO Q4HPRN PRN
Dextrose 50%-Water [Dextrose 50% Syringe] 12.5 grams IV [id number] PRN
Glucagon [GlucaGen] 1 mg IM PRN PRN
Ipratropium/Albuterol Sulfate [Duoneb] 3 ml INH R Q4HPRN PRN
12/28/24 05:51
Activity As Directed
Activity Level: Ambulate
With Assistance
Bedside Glucose Monitoring As Directed
Frequency: AC&HS
Additional Instructions:: Change to q6h if pt on TPN, tube feeding or not eating
EKG with chest pain [ECG as needed] As Directed
ECG as needed for:: Chest Pain
I/O [Intake/ Output] As Directed
Frequency: Per unit guidelines
Vital Signs As Directed
Frequency: Per unit guidelines
Weight As Directed
Frequency: Daily
Oxygen Therapy [O2 Therapy] [RESP] Routine
Titrate/Wean O2 to maintain O2 sat greater than (%): 94
PT Consult [Pt Eval And Treat] Routine
Activity Level: Ambulate
With Assistance
DX Deep Vein Thrombosis Video Routine
12/28/24 Breakfast
2000 calorie (17 carb) Diabetic
At Your Request: Full Participation
Fluid Restriction: 1440 mL/day (48 oz)
Levothyroxine [Synthroid] 25 mcg PO DAILY @ 0600
12/28/24 06:03
Oxycodone [Roxicodone] 5 mg PO DAILY PRN severe pain severe pain
12/28/24 07:30
FOLic ACID [Folvite] 2 mg PO DAILY@0730
Insulin Aspart Corrective Low [Novolog Flexpen-Low Resistance] See Protocol SC AC
12/28/24 08:00
Atorvastatin [Lipitor] 10 mg PO DAILY
Dapagliflozin [Farxiga] 10 mg PO DAILY
Enoxaparin Sodium [Lovenox] 40 mg SC BID
Furosemide [Lasix] 40 mg IV BID AT 0800,1600
Gabapentin [Neurontin] 800 mg PO BID
Metoprolol Xl [Toprol Xl] 25 mg PO DAILY
Midodrine [ProAmatine] 2.5 mg PO TID@0800,1300,1800
Oxycodone [Roxicodone] 5 mg PO BID
Thiamine HCl [Vitamin B1] 100 mg PO DAILY
12/31/24 11:00
DC Protocol for Telemetry ONCE
Abnormal Lab Results
12/27/24
16:54
WBC 3.7 L 10^3/uL
(4.8-10.8)
RBC 2.33 L 10^6/uL
(4.70-6.10)
Hgb 8.9 L g/dL
(13.0-18.0)
Hct 28.1 L %
(39.0-52.0)
MCV 120.6 H fL
(80.0-94.0)
MCH 38.2 H pg
(27.0-31.0)
MCHC 31.7 L g/dL
(33.0-37.0)
RDW 18.6 H %
(11.5-14.5)
Absolute Lymphs (auto) 0.8 L 10^3/uL
(1.2-3.4)
Monocytes % 10.4 H %
(1.7-9.3)
Carbon Dioxide 31 H mmol/L
(22-30)
Glucose 106 H mg/dl
(70-99)
Albumin 3.1 L g/dl
(3.5-5.0)
12/27/24 16:54
12/27/24 16:54
Vital Signs
Initial and Last Documented VS:
Initial Vital Signs
Temp Pulse Resp BP Pulse Ox
98.0 F 96 19 116/60 100
12/27/24 16:46 12/27/24 16:46 12/27/24 16:46 12/27/24 16:46 12/27/24 16:46
Last Documented Vital Signs
Temp Pulse Resp BP Pulse Ox
98.6 F 91 18 97/54 98
12/28/24 11:32 12/28/24 13:25 12/28/24 11:32 12/28/24 13:25 12/28/24 11:32
Cooperative Education Coordinator consulted with Physician
Cooperative Education Coordinator consulted with physician?: Yes
Name of Physician Consulted: DR Frias
<Fuentes Frias MD - Last Filed: 12/28/24 14:14>
Orders/Labs/Results
Orders:
Orders
12/27/24 16:54
Type+Screen Urgent
Complete Blood Count/With Diff Urgent
Comprehensive Metabolic Panel Urgent
NT-proBNP Urgent
12/27/24 22:53
Add On- LAB Urgent
Tests Added?: cardiac BNP
Chest [CR Chest - 2 Views ] Urgent
Comment:
Reason For Exam: sob
12/28/24 00:23
Gabapentin [Neurontin] 800 mg PO NOW STA
Oxycodone [Roxicodone] 5 mg PO NOW STA
12/28/24 01:32
EKG [Electrocardiogram (*1)] Stat
Reason for Study: Chest Pain
12/28/24 02:37
Furosemide [Lasix] 40 mg IV NOW STA
12/28/24 03:40
Admit/Transfer Patient As Directed
Co-Sign Provider:
Level of Care: Inpatient admission
Assign to:: Telemetry
Physician / Group: Cuong
Diagnosis: CHF
Reason for Telemetry: Acute Heart Failure
Date to Stop Telemetry: 12/31/24
Time to Stop Telemetry: 11:00
Reason for Hospitalization: CHF
Expected length of stay greater than two midnights?: Yes
ELOS- Estimated Length of Stay in days: 3
I certify the patient meets the requirements for IP care: Yes
PRN Pain Medication Management As Directed
May give lesser potent ordered pain med per pt: Yes
preference::
Protocol:: Medication orders for pain may be administered in a
manner that supports deferring to patient preference
when the pt is:
- Requesting an ordered lesser potent pain medication.
Least to most potent pain medications are defined
as: acetaminophen < NSAID < tramadol < opioids
(morphine, oxycodone, hydromorphone).
- Requesting a lesser dose of the same medication IF
ORDERED.
- Requesting a less intrusive route of administration
if both routes are prescribed by the provider (PO <
IV).
12/28/24 03:42
Code Status As Directed
Resuscitation Status: Full Code
12/28/24 05:09
Basic Metabolic Panel IN AM
Complete Blood Count/No Diff IN AM
12/28/24 05:51
Acetaminophen [Tylenol] 650 mg PO Q4HPRN PRN
Dextrose 50%-Water [Dextrose 50% Syringe] 12.5 grams IV [id number] PRN
Glucagon [GlucaGen] 1 mg IM PRN PRN
Ipratropium/Albuterol Sulfate [Duoneb] 3 ml INH R Q4HPRN PRN
12/28/24 05:51
Activity As Directed
Activity Level: Ambulate
With Assistance
Bedside Glucose Monitoring As Directed
Frequency: AC&HS
Additional Instructions:: Change to q6h if pt on TPN, tube feeding or not eating
EKG with chest pain [ECG as needed] As Directed
ECG as needed for:: Chest Pain
I/O [Intake/ Output] As Directed
Frequency: Per unit guidelines
Vital Signs As Directed
Frequency: Per unit guidelines
Weight As Directed
Frequency: Daily
Oxygen Therapy [O2 Therapy] [RESP] Routine
Titrate/Wean O2 to maintain O2 sat greater than (%): 94
PT Consult [Pt Eval And Treat] Routine
Activity Level: Ambulate
With Assistance
DX Deep Vein Thrombosis Video Routine
12/28/24 Breakfast
2000 calorie (17 carb) Diabetic
At Your Request: Full Participation
Fluid Restriction: 1440 mL/day (48 oz)
Levothyroxine [Synthroid] 25 mcg PO DAILY @ 0600
12/28/24 06:03
Oxycodone [Roxicodone] 5 mg PO DAILY PRN severe pain severe pain
12/28/24 07:30
FOLic ACID [Folvite] 2 mg PO DAILY@0730
Insulin Aspart Corrective Low [Novolog Flexpen-Low Resistance] See Protocol SC AC
12/28/24 08:00
Atorvastatin [Lipitor] 10 mg PO DAILY
Dapagliflozin [Farxiga] 10 mg PO DAILY
Enoxaparin Sodium [Lovenox] 40 mg SC BID
Furosemide [Lasix] 40 mg IV BID AT 0800,1600
Gabapentin [Neurontin] 800 mg PO BID
Metoprolol Xl [Toprol Xl] 25 mg PO DAILY
Midodrine [ProAmatine] 2.5 mg PO TID@0800,1300,1800
Oxycodone [Roxicodone] 5 mg PO BID
Thiamine HCl [Vitamin B1] 100 mg PO DAILY
12/31/24 11:00
OR Protocol for Telemetry ONCE
Abnormal Lab Results
12/27/24
16:54
WBC 3.7 L 10^3/uL
(4.8-10.8)
RBC 2.33 L 10^6/uL
(4.70-6.10)
Hgb 8.9 L g/dL
(13.0-18.0)
Hct 28.1 L %
(39.0-52.0)
MCV 120.6 H fL
(80.0-94.0)
MCH 38.2 H pg
(27.0-31.0)
MCHC 31.7 L g/dL
(33.0-37.0)
RDW 18.6 H %
(11.5-14.5)
Absolute Lymphs (auto) 0.8 L 10^3/uL
(1.2-3.4)
Monocytes % 10.4 H %
(1.7-9.3)
Carbon Dioxide 31 H mmol/L
(22-30)
Glucose 106 H mg/dl
(70-99)
Albumin 3.1 L g/dl
(3.5-5.0)
12/27/24 16:54
12/27/24 16:54
Vital Signs
Initial and Last Documented VS:
Initial Vital Signs
Temp Pulse Resp BP Pulse Ox
98.0 F 96 19 116/60 100
12/27/24 16:46 12/27/24 16:46 12/27/24 16:46 12/27/24 16:46 12/27/24 16:46
Last Documented Vital Signs
Temp Pulse Resp BP Pulse Ox
98.6 F 91 18 97/54 98
12/28/24 11:32 12/28/24 13:25 12/28/24 11:32 12/28/24 13:25 12/28/24 11:32
<TRISTAN Chairez - Last Filed: 12/28/24 02:45>
MDM/Problems Addressed
Differential Diagnosis Includes:
Not limited to anemia CHF
MDM/Problems Addressed:
As documented patient is a 5-year-old male who was recently admitted with anemia /rib fractures discharged December 21 presents with shortness of breath for the past 2 days associate lower extremity swelling. Patient is on Lasix and took his dose
this morning.
With regards to patient's hemoglobin his hemoglobin today is at baseline from discharge he has normal renal function; x-ray shows increased congestion pleural effusions.
Patient ambulated here however SOB on exertion pulse ox 93 % . case reviewed with ED attending . Symptoms are consistent with fluid overload will admit
Chronic conditions affecting care:
Diabetes hypertension hyperlipidemia
<TRISTAN Chairez - Last Filed: 12/28/24 02:45>
*Radiology
Radiology exam reviewed: preliminary read by ED provider (Increased vascular congestion profusion)
*Pulse Oximetry
SaO2: 100
Oxygen Mode of Delivery: Room air
Patient hypoxic: yes (Patient does desaturate 93% after ambulation)
*EKG
Interpretation: abnormal
Comparison EKG: no changes
Heart Rate: 89
Rate: normal
Rhythm: sinus
QRS Pattern: right bundle branch block
Ischemia: no ischemia
*Critical Care Note
Total Time (30-74mins, 75-104mins- exclusive of procedures): Not Applicable
ED Attending Note
<TRISTAN Chairez - Last Filed: 12/28/24 02:45>
-
Portions of this chart may have been created with voice recognition software.� Occasional wrong word or��sound alike� substitutions may have occurred due to the inherent limitations of voice recognition software.
<Fuentes Frias MD - Last Filed: 12/28/24 14:14>
ED Attending Note
Patient seen and examined by attending physician: Yes
ED Attending Note:
Patient with history of chronic alcoholism, admitted to the hospital last week requiring blood transfusion, presents to ED for evaluation after outpatient blood work revealed recurrent anemia. Patient is also currently taking Lasix 40 mg daily
since discharge. Patient states that his weight has been down every day since discharge. Denies fever or chills. Denies coughing. Denies chest pain. Denies vomiting or diarrhea. Patient states that since he has been home for the past 1 week,
he has been feeling well. However, for the past 2 days, he has noted increased generalized fatigue and mild shortness of breath, especially with exertion. Denies any increased leg swelling.
Physical Exam
General: no apparent distress, chronically ill appearing. afebrile. overweight.
Head: nc/at. eomi
Neck: supple. no jvd
Heart: s1/s2 regular rate and rhythm, no murmur. equal radial pulses.
Lungs: no acute respiratory distress. clear bilaterally
Abdomen: normal bowel sounds. not tender.
Neuro: alert and oriented x 3. no focal neurological deficits
Skin: no rash
Psychiatric: well kept. interactive and cooperative
Extremities: LE b/l edema, pitting. no calf tenderness
Will check blood work, including proBNP and chest x-ray. In addition, patient will be ambulated afterwards. If patient exhibits significant symptoms, i.e. respiratory distress, or hypoxia, patient may require admission for further evaluation and
treatment, including potential IV diuresis. H&H stable, close to test results when he was discharged from the hospital.
Discharge Plan
Departure
Patient Disposition: Admit
Date of Disposition: 12/28/24
Time of Disposition: 03:14
Admit to: Telemetry
Admit to doctor: hospitalist
Presentation/result/management discussed w/ accepting MD/DO: Hospitalist
Patient with high blood pressure during this ER visit?: Yes
Condition: Fair
Covid-19: Not Applicable
Discharge Problem:
shortness of breath, Fatigue, Anemia
Interventions
Interventions:
*Risk Screen - Suicide Last Done: 12/27/24 16:50
*General Assessment Last Done: 12/27/24 16:50
*Neglect/Abuse Screening Last Done: 12/27/24 16:50
*ED- Fall Risk Assessment Last Done: 12/28/24 05:39
*ED COVID-19 Vaccine History Last Done: 12/28/24 05:23
*ED Influenza Vaccine History Last Done: 12/27/24 16:51
*Nursing Disposition Last Done: 12/28/24 05:39
Discharge Date and Time
Discharge Date/Time: 12/28/24 05:40
[2024-12-27 22:20] VITALS: BP 127/81
[2024-12-27 23:00] VITALS: BP 153/83
[2024-12-28] VITALS (11 sets, daily range): BP systolic 112–124; BP diastolic 60–82; BMI 41.7
[2024-12-28] MEDS: NEURONTIN 800 MG PO ×3 (00:45→20:20)
[2024-12-28] MEDS: ROXICODONE 5 MG PO ×3 (00:45→20:19)
[2024-12-28] MEDS: LASIX 40 MG IV ×3 (03:06→15:28)
--- NOTE | 2024-12-28 03:45 | HPS.HSE ---
Family Physician
-
Family Physician: Maite Long
Chief Complaint
-
SOB / MA
History of Present Illness
Patient is a 59y M with PMH significant for DM-II, CHF and chronic macrocytic anemia who presents to ED complaining of worsening SOB / MA. Patient was admitted to 12/12 - 12/21 for similar symptoms. He was treated for symptomatic anemia as
well as suspected HFpEF (which was a new diagnosis for him). Patient states that he felt well for a few days after his discharge and had 'a lot of energy'. Beginning , he noted increased fatigue, increased LE swelling and significant
dyspnea with exertion. Patient also states that he was contacted by his PCP this evening and advised to return to the ED due to abnormal labs - ? specifically hemoglobin.
Patient denies any new chest pain (some residual L sided pain from recent rib fractures / fall), no cough, fevers / chills, etc.
Medical History
Past Medical History
Past Medical History: Reports Other
Additional Past Medical History:
HFpEF
Hypertension
DM-II
Chronic Lymphedema / Venous Stasis
Morbid Obesity
FLORENCIA not Currently on CPAP
Macrocytic Anemia / Folate Deficiency
Hypothyroidism
Chronic Pain Syndrome / Chronic Opioid Dependence
Past Surgical History: Reports Other
Additional Past Surgical History:
Lumbar laminectomy 1996
Lumbar fusion 1997
Left total knee replacement
Social History
Tobacco: Former Smoker (15 years 1 pack a day quit 2003)
Alcohol: Daily (18 to 24 ounces of [place]ardon[place] daily prior used to drink 10 to 21 ounces of vodka daily up until 2019)
Drug: None
Personal: Single
Living: With Family (Autistic son)
Employment: Not Employed
Family History
Family History: Not pertinent
Allergies / Home Medications
Allergies reflects when Allergies were last updated in [employer].
Home Medications with original date entered in [employer]
Allergy/Medication List:
Allergies
Allergy/AdvReac Type Severity Reaction Status Date / Time
acetaminophen (From Tylenol) Allergy d/t Verified 01/20/15 08:17
elevated
liver
enzymes;denies
allergy
lidocaine AdvReac Mild Rash Verified 12/12/24 23:48
Home Medications
atorvastatin 40 mg tablet 10 mg PO DAILY High Cholesterol 08/27/14
empagliflozin 25 mg tablet (Jardiance) 25 mg PO DAILY Diabetes 12/12/24
gabapentin 800 mg tablet 800 mg PO BID NEUROPATHIC PAIN 12/12/24
oxycodone 5 mg PO DAILY PRN Breakthrough Pain 12/12/24
oxycodone 5 mg tablet 5 mg PO BID Pain 12/12/24
furosemide 40 mg tablet 40 mg PO DAILY #30 tabs 12/21/24
levothyroxine 50 mcg tablet 12.5 mcg (1/4 x 50 mcg) PO DAILY @ 0600 #20 tabs 12/21/24
metoprolol succinate 25 mg tablet,extended release 24 hr 25 mg PO DAILY #30 tabs 12/21/24
midodrine 2.5 mg tablet 2.5 mg PO TID@0800,1300,1800 #90 tabs 12/21/24
thiamine mononitrate (vit B1) 100 mg tablet 100 mg PO DAILY #30 tabs 12/21/24
folic acid 1 mg tablet See Rx Instructions .Route .COMPLEX 12/28/24
Review of Systems
-
History Source: Patient
Constitutional: Reports Fatigue; Denies Fever, Weight Gain, Weight Loss or Chills
EENT: Denies Sore Throat
Respiratory: Reports Trouble Breathing; Denies Cough or Hemoptysis
Cardiac: Reports Chest Pain; Denies Diaphoresis or Palpitations
Abdomen/GI: Denies Abdominal Pain, Nausea, Vomiting or Diarrhea
: Denies Dysuria or Frequency
Musculoskeletal: Reports Edema; Denies Joint Pain
Neurological: Denies Dizzy or Headache
Psych: Denies Depression or Anxiety
Physical Exam
Vital Signs
Vital Signs
Temp Pulse Resp BP Pulse Ox
98.0 F 90 28 112/67 96
12/27/24 16:46 12/28/24 03:06 12/27/24 23:00 12/28/24 03:06 12/27/24 23:36
Physical Exam
General: Other (59y M in mild distress due to dyspnea.)
HEENT: Moist mucous membranes, PERRLA and Other (Thick neck. No appreciable JVD.)
Respiratory: Other (Scattered squeaks and wheezes throughout.)
Cardiac: S1/S2, Regular Rhythm and Murmur (II/ ADITYA)
GI: Non Tender, Non Distended, Normal Bowel Sounds and Other (Obese.)
Musculoskeletal: No Clubbing, No Cyanosis and Other (3+ pitting edema b/l LEs.)
Neuro: AO x 3
Laboratory Results
-
12/27/24 16:54
12/27/24 16:54
Laboratory Results
Total Bilirubin 0.9 mg/dl (0.2-1.3) 12/27/24 16:54
AST 39 U/L (17-59) 12/27/24 16:54
ALT 25 U/L (0-50) 12/27/24 16:54
Alkaline Phosphatase 117 U/L (38-126) 12/27/24 16:54
Impression/Plan
-
A/P: Patient is a 59y M with PMH significant for DM-II, morbid obesity and recent admission for HFpEF who presents to ED with worsening MA, edema, etc.
Acute on Chronic HFpEF
- Admit for further evaluation and treatment.
- Resume IV Lasix BID for now.
- Follow BP and adjust midodrine dosing if needed for effective diuresis.
- Follow daily weights, I/Os, etc.
- Follow for clinical improvement.
- Continue Jardiance / Farxiga.
Chronic Macrocytosis with Anemia
Folate Deficiency
- Stable. Hgb is unchanged from recent admission. Outpatient labs done 12/27 showed the same.
- Continue current folic acid supplementation regimen.
- Encourage continued abstinence from alcohol.
- Follow for eventual improvement.
Morbid Obesity due to excess calories
FLORENCIA / OHV
- Affects all aspects of care and certainly symptoms of dyspnea / exercise intolerance.
- Patient not compliant with PAP therapy / has no current home set up.
- Encourage outpatient follow-up with Pulm for formal PSG and re-arrangement of CPAP.
- Encourage continued efforts at healthy diet / increased activity with goal of weight loss.
DM-II
- Stable. Continue current med regimen.
- Follow glucose and cover with SSI as needed.
Hypotension
- Continue midodrine as noted above.
- Adjust dose as needed to allow for effective diuresis.
Hypothyroidism
- Abnormal TFTs with clinical symptoms of hypothyroidism.
- Would increase T4 dose to at least 25 mcg.
- Follow-up repeat TFTs in 4-6 weeks and adjust dose as needed.
Chronic Pain Syndrome
Chronic Opioid Dependence
- Stable. Continue usual home med regimen.
Alcohol Use Disorder
- No EtOH intake since recent admission.
- Encourage continued efforts at cessation.
DVT Prophylaxis: Lovenox
Code Status: Full
[2024-12-28 05:33] LABS: Hematocrit 29.4 % (39.0-52.0); Hemoglobin 9.1 g/dL (13.0-18.0); Mean Corp Hgb Conc. 31.0 g/dL (33.0-37.0); Mean Corpuscular Volume 119.5 fL (80.0-94.0); Platelet Count 248 10^3/uL (130-400); Red Cell Dist. Width 18.6 % (11.5-14.5)
[2024-12-28 05:44] LABS: Blood Urea Nitrogen 11 mg/dl (9-20); Calcium 8.8 mg/dl (8.4-10.2); Carbon Dioxide 29 mmol/L (22-30); Chloride 106 mmol/L (98-107); Glucose 90 mg/dl (70-99); Potassium 3.9 mmol/L (3.5-5.1); Sodium 139 mmol/L (135-145); eGFR > 60.00
[2024-12-28] MEDS: SYNTHROID 25 MCG PO (06:22)
[2024-12-28 08:04] LABS: Glucose - Point of Care 92 mg/dl (70-99)
[2024-12-28] MEDS: NOVOLOG FLEXPEN-LOW RESISTANCE SC ×2 (08:16→17:35)
[2024-12-28] MEDS: LOVENOX 40 MG SC ×2 (08:25→20:20)
[2024-12-28] MEDS: FARXIGA 10 MG PO (08:25)
[2024-12-28] MEDS: FOLVITE 2 MG PO ×2 (08:26→13:25)
[2024-12-28] MEDS: TYLENOL 650 MG PO (08:26)
[2024-12-28] MEDS: FOLVITE 1 MG PO (08:27)
[2024-12-28] MEDS: VITAMIN B1 100 MG PO (08:27)
[2024-12-28] MEDS: LIPITOR 10 MG PO (08:27)
[2024-12-28] MEDS: TOPROL XL 25 MG PO (08:27)
--- NOTE | 2024-12-28 09:02 | W.PN.HOSP.TC ---
Today's Communication/Plan
-
Continue IV diuretics and SGLT2i
Wean midodrine as possible
Continue levothyroxine 25 mcg
Alcohol withdrawal protocol
Assessment / Plan
Assessment / Plan
#Decompensated HFpEF
#FLORENCIA not on CPAP
#Chronic venous insufficiency
- Last echo with preserved LVEF and normal RV size; noncompliant with CPAP
- Home regimen includes Lasix 40 mg daily, SGLT2i for GDMT; also on midodrine 3 times daily for hypotension
- Presented with dyspnea and signs of volume overload, states he is compliant with Lasix
- Suspect FLORENCIA without use of CPAP is contributing to decompensation, with increased afterload
- Was started on IV Lasix 40 mg twice daily; clinically improved though I's and O's and weights accurate
- Will continue current diuretics and trend BMP + I's and O's + daily weight
- Monitor SpO2 on room air, monitor telemetry
- Plan OP sleep study and CPAP
- Compression sleeves for CVI
- Consider consult cardiology
#Macrocytic anemia
#Folate deficiency
#Chronic alcoholism
- Hemoglobin baseline near 9, MCV near 115
- Has known folate deficiency on previous hospital stay due to alcoholism
- Continue with home thiamine and folate supplements, trend CBC
- MSAS protocol for withdrawal
#Hypothyroidism
- Was on 12.5 mcg of levothyroxine, TSH here 34, increased to 25 mcg
- Will continue to monitor for signs or symptoms of hypothyroidism
- Will need to follow-up OP for repeat TSH, thyroid US, anti-TPO antibody
#NIDDM with neuropathy
#HLD
- Home regimen includes SGLT2 inhibitor for diabetes, gabapentin for neuropathy
- Home meds also include moderate intensity statin for vascular risk reduction
- No known history of associated retinopathy or nephropathy
- Continue with ISS and Accu-Cheks while inpatient
#Hypotension
- Unclear etiology though question if associated with hyperthyroid state as above
- Home medications include midodrine 2.5 mg 3 times daily
- Continue home meds for now, wean midodrine as tolerated
#Former tobacco use
#Chronic pain on oxycodone
Diet: Diabetic, sodium restricted
Thromboprophylaxis: SQ Lovenox
CODE STATUS: Full code
Disposition: PT consulted
Anticipated Discharge: > 48 hours
Subjective/Interval History
-
Date of Service: December 28, 2024
Seen and examined while seated in the chair. No acute events reported overnight. AFVSS on room air
Hemoglobin and renal function stable. TSH 34.6. Levothyroxine dose was increased to 25 mcg at time of admission
Denies any other new complaints today
Objective Data
-
Labs:
Laboratory Results
12/28/24
05:09
WBC 3.6 L
Hgb 9.1 L
Hct 29.4 L
Plt Count 248
Sodium 139
Potassium 3.9
Chloride 106
Carbon Dioxide 29
BUN 11
Creatinine 0.9
Glucose 90
Calcium 8.8
Vital Signs:
Vital Signs
Temp Pulse Resp BP Pulse Ox
98.2 F 91 17 120/61 96
12/28/24 07:49 12/28/24 08:26 12/28/24 07:49 12/28/24 08:26 12/28/24 07:49
Review of Systems
-
History Source: Patient
All other systems: Reviewed and negative
Physical Exam
-
General: Well Developed, No Apparent Distress, Appears Chronically Ill and Morbidly Obese
HEENT: Normocephalic, Atraumatic, Moist Mucous Membranes and Anicteric
Respiratory: Non Labored Respirations and Decreased Breath Sounds; Negative Wheezes, Rales, Rhonchi or Accessory Resp Muscle Use
Cardiac: Regular Rhythm and S1/S2; Negative Murmur, Rub or Gallop
GI: Soft, Nontender, Nondistended and Normal Bowel Sounds
Musculoskeletal: No Clubbing, No Cyanosis and Other (2+ pitting edema bilaterally)
Skin: Warm and Dry; Negative Rash
Neuro: AO x 3 and Nonfocal/Grossly Intact; Negative Central Nerve's Intact
Psych: Calm
Data Reviewed
-
Labs: Labs Reviewed by me and Discussed with Patient
[2024-12-28 11:50] LABS: Glucose - Point of Care 176 mg/dl (70-99)
[2024-12-28] MEDS: NOVOLOG FLEXPEN-LOW RESISTANCE 1 UNITS SC (13:26)
--- NOTE | 2024-12-28 15:50 | CM ---
Alert awake oriented patient who lives with his son Eric in a 1 story home with 1 step to enter.He is independent in driving and in all activities of daily living.He uses a cane .He was offered VN he requested [facility] .
[facility] currently/ NO SNF hx
Pharmacy [facility]
PCP DR Long
PLAN Home with [facility]
[2024-12-28 16:39] LABS: Glucose - Point of Care 139 mg/dl (70-99)
[2024-12-28 21:48] LABS: Glucose - Point of Care 115 mg/dl (70-99)
[2024-12-29] VITALS (7 sets, daily range): BP systolic 83–117; BP diastolic 49–69; BMI 40.8
[2024-12-29 05:40] LABS: Hematocrit 28.5 % (39.0-52.0); Hemoglobin 8.7 g/dL (13.0-18.0); Mean Corp Hgb Conc. 30.5 g/dL (33.0-37.0); Mean Corpuscular Volume 118.8 fL (80.0-94.0); Nucleated Red Blood Cells % 0 % (-); Platelet Count 241 10^3/uL (130-400); Red Cell Dist. Width 18.6 % (11.5-14.5)
[2024-12-29] MEDS: SYNTHROID 25 MCG PO (05:52)
[2024-12-29 06:05] LABS: Blood Urea Nitrogen 13 mg/dl (9-20); Calcium 8.5 mg/dl (8.4-10.2); Carbon Dioxide 32 mmol/L (22-30); Chloride 104 mmol/L (98-107); Estimated Creatinine Clearance 106 ml/min; Glucose 83 mg/dl (70-99); Potassium 3.8 mmol/L (3.5-5.1); Sodium 141 mmol/L (135-145); eGFR > 60.00
[2024-12-29] MEDS: ROXICODONE 5 MG PO ×2 (08:28→20:59)
--- NOTE | 2024-12-29 08:41 | W.PN.HOSP.TC ---
Today's Communication/Plan
-
Continue IV diuretics
Increase metoprolol XL to 50 daily
Nocturnal O2 as needed for FLORENCIA
Plan OP sleep study and CPAP
Cardiology consulted
Assessment / Plan
Assessment / Plan
#Decompensated HFpEF
#FLORENCIA not on CPAP
#Chronic venous insufficiency
- Last echo with preserved LVEF and normal RV size; noncompliant with CPAP
- Home regimen includes Lasix 40 mg daily, SGLT2i for GDMT; also on midodrine 3 times daily for hypotension
- Suspect FLORENCIA without use of CPAP is contributing to decompensation, with increased afterload effect
- Was started on IV Lasix 40 mg twice daily; clinically improved though I's and O's and weights inaccurate
- Warm and wet phenotype, has been stable on room air while awake
Plan
- Continue IV Lasix 40 mg twice daily, trend BMP + I's and O's + daily weight
- Increased metoprolol XL to 50 mg daily due to tachycardia
- Plan OP sleep study and CPAP, nocturnal O2 PRN here
- Monitor SpO2 with goal > 90%, continue telemetry
- Compression sleeves for CVI
- Consult cardiology
#Macrocytic anemia
#Folate deficiency
#Chronic alcoholism
- Hemoglobin baseline near 9, MCV near 115
- Has known folate deficiency on previous hospital stay due to alcoholism
- Continue with home thiamine and folate supplements, trend CBC
- MSAS protocol for withdrawal
#Hypothyroidism
- Was on 12.5 mcg of levothyroxine, TSH here 34, increased to 25 mcg
- Will continue to monitor for signs or symptoms of hypothyroidism
- Will need to follow-up OP for repeat TSH, thyroid US, anti-TPO antibody
#NIDDM with neuropathy
#HLD
- Home regimen includes SGLT2 inhibitor for diabetes, gabapentin for neuropathy
- Home meds also include moderate intensity statin for vascular risk reduction
- No known history of associated retinopathy or nephropathy
- Continue with ISS and Accu-Cheks while inpatient
#Hypotension
- Unclear etiology though question if associated with hyperthyroid state as above
- Home medications include midodrine 2.5 mg 3 times daily
- Continue home meds for now, wean midodrine as tolerated
#Former tobacco use
#Chronic pain on oxycodone
Diet: Diabetic, sodium restricted
Thromboprophylaxis: SQ Lovenox
CODE STATUS: Full code
Disposition: PT consulted
Anticipated Discharge: 24 - 48 hours
Subjective/Interval History
-
Date of Service: December 29, 2024
Seen and examined at bedside. No acute events reported overnight. AFVSS this morning on 2 L O2, HR near 100
Net -1 L per I's and O's, weight down 3 kg, renal function stable
Denies any new medical complaints this morning.
Objective Data
-
Labs:
Laboratory Results
12/29/24
05:14
WBC 3.4 L
Hgb 8.7 L
Hct 28.5 L
Plt Count 241
Sodium 141
Potassium 3.8
Chloride 104
Carbon Dioxide 32 H
BUN 13
Creatinine 1.1
Glucose 83
Calcium 8.5
Vital Signs:
Vital Signs
Temp Pulse Resp BP Pulse Ox
98.2 F 103 18 117/66 94
12/29/24 07:30 12/29/24 07:30 12/29/24 07:30 12/29/24 07:30 12/29/24 07:30
I&O
12/28/24 12/29/24 12/30/24
06:59 06:59 06:59
Intake Total 1080 / 1080 120 / 120
Output Total 1350 / 1350 850 / 850
Balance -270 / -270 -730 / -730
Review of Systems
-
History Source: Patient
All other systems: Reviewed and negative
Physical Exam
-
General: Well Developed, No Apparent Distress and Morbidly Obese
HEENT: Normocephalic, Atraumatic, Moist Mucous Membranes and Anicteric
Respiratory: Non Labored Respirations and Decreased Breath Sounds; Negative Wheezes, Rales, Rhonchi or Accessory Resp Muscle Use
Cardiac: Regular Rhythm, S1/S2 and Tachycardic; Negative Murmur, Rub or Gallop
GI: Soft, Nontender, Nondistended and Normal Bowel Sounds
Musculoskeletal: No Clubbing, No Cyanosis and No Edema
Skin: Warm and Dry; Negative Rash
Neuro: AO x 3, Nonfocal/Grossly Intact and Central Nerve's Intact
Psych: Calm
Data Reviewed
-
Labs: Labs Reviewed by me, Discussed with Physician (Cardiology) and Discussed with Patient
[2024-12-29] MEDS: TOPROL XL 25 MG PO ×2 (09:10→10:42)
[2024-12-29] MEDS: LIPITOR 10 MG PO (09:10)
[2024-12-29] MEDS: FOLVITE 2 MG PO ×2 (09:11→12:05)
[2024-12-29] MEDS: FARXIGA 10 MG PO (09:11)
[2024-12-29] MEDS: NEURONTIN 800 MG PO ×2 (09:13→20:59)
[2024-12-29] MEDS: LOVENOX 40 MG SC ×2 (09:14→20:57)
[2024-12-29] MEDS: LASIX 40 MG IV ×2 (09:15→16:54)
[2024-12-29] MEDS: VITAMIN B1 100 MG PO (09:17)
[2024-12-29 09:22] LABS: Glucose - Point of Care 90 mg/dl (70-99)
[2024-12-29] MEDS: NOVOLOG FLEXPEN-LOW RESISTANCE SC ×3 (09:48→16:54)
[2024-12-29 11:51] LABS: Glucose - Point of Care 106 mg/dl (70-99)
--- NOTE | 2024-12-29 12:12 | CON.CAR ---
Consultation
Consultation Request
Date/Time Consultation Requested: 12/28/24 10:00AM
Date/Time Consultation Performed: 12/28/24 11:30AM
Requesting Provider: Dr Hummel
Performing Provider: Dr leach
Reason for Consultation: CHF
Medical History
-
Chief Complaint: Shortness of breath and fatigue
History of Present Illness:
59-year-old male well-known to our service recently discharged approximately 2 weeks ago for acute heart failure with preserved ejection fraction presents with fatigue, increased lower extremity edema, weight gain, and shortness of breath. He had
lab work and was advised to go to the emergency room. He states his weight has been good although over the past several days he has increased lower extremity edema and shortness of breath. He denies any chest pains. He denies any bleeding. He
denies any orthopnea. He still gets some occasional rib pains from his rib fractures but these have been improving. He has no fevers or chills. He has no significant coughing. He states has been compliant with his Lasix and is doing the best he
can with his sodium.
PMH:
Acute on chronic heart failure with preserved ejection fraction
Macrocytic anemia
Chronic LE edema
RBBB
FLORENCIA
HTN
HLD
OA s/p L TKA
s/p laminectomy and spinal fusion
Former smoker/ETOH
Recent falls with rib fractures of L 4th, 5th, 6th ribs
Adenopathy and splenomegaly by CTAP 12/12/24
Past Medical History
Past Surgical History: Orthopedic (Laminectomy/lumbar fusion [id number])
Social History
Tobacco: Former Smoker
Alcohol: Daily
Drug: None
Personal: Single
Living: With Family
Employment: Not Employed
Family History
Family History: Hypertension
Allergies / Home Medications
Allergy/AdvReac Type Severity Reaction Status Date / Time
acetaminophen (From Tylenol) Allergy d/t Verified 01/20/15 08:17
elevated
liver
enzymes;denies
allergy
lidocaine AdvReac Mild Rash Verified 12/12/24 23:48
�Medication �Instructions �Recorded �Confirmed �Type
atorvastatin 40 mg tablet 10 mg PO DAILY High Cholesterol 08/27/14 12/28/24 History
empagliflozin 25 mg tablet 25 mg PO DAILY Diabetes 12/12/24 12/28/24 History
(Jardiance)
gabapentin 800 mg tablet 800 mg PO BID NEUROPATHIC PAIN 12/12/24 12/28/24 History
oxycodone 5 mg PO DAILY PRN Breakthrough Pain 12/12/24 12/28/24 History
oxycodone 5 mg tablet 5 mg PO BID Pain 12/12/24 12/28/24 History
furosemide 40 mg tablet 40 mg PO DAILY #30 tabs 12/21/24 12/28/24 Rx
levothyroxine 50 mcg tablet 12.5 mcg (1/4 x 50 mcg) PO DAILY @ 12/21/24 12/28/24 Rx
0600 #20 tabs
metoprolol succinate 25 mg 25 mg PO DAILY #30 tabs 12/21/24 12/28/24 Rx
tablet,extended release 24 hr
midodrine 2.5 mg tablet 2.5 mg PO TID@0800,1300,1800 #90 12/21/24 12/28/24 Rx
tabs
thiamine mononitrate (vit B1) 100 100 mg PO DAILY #30 tabs 12/21/24 12/28/24 Rx
mg tablet
folic acid 1 mg tablet See Rx Instructions .Route .COMPLEX 12/28/24 12/28/24 History
Review of Systems
-
History Source: Patient
Constitutional: Weight Gain and Fatigue
EENT: No Symptoms
Respiratory: Trouble Breathing
Cardiac: No Symptoms
Abdomen/GI: No Symptoms
: No Symptoms
Musculoskeletal: No Symptoms
Skin: No Symptoms
Endocrine: No Symptoms
Physical Exam
Vital Signs
Temp Pulse Resp BP Pulse Ox
97.9 F 87 18 115/58 98
12/29/24 11:30 12/29/24 11:30 12/29/24 11:30 12/29/24 11:30 12/29/24 11:30
Lab Results
12/29/24 05:14
12/29/24 05:14
Byy-U-Ojqishukocy Pept 1600 pg/ml 12/27/24 16:54
Physical Exam
General: Well Developed and Well Nourished
HEENT: Normocephalic and Anicteric
Respiratory: Rhonchi
Cardiac: S1/S2, Regular Rhythm and Murmur (03/18 syst LSB)
GI: Soft, Non Tender and Non Distended
Genito-urinary: No Costovertebral Tender
Musculoskeletal: Edema
Skin: Rash
Neuro: AO x 3
Psych: Calm
Impression / Plan
-
Assess:
Acute on chronic heart failure with preserved ejection fraction
Chronic anemia
B/L LE edema
RBBB
FLORENCIA
HTN
HLD
OA s/p L TKA
s/p laminectomy and spinal fusion
Former smoker/ETOH
Recent falls with rib fractures of L 4th, 5th, 6th ribs
Adenopathy and splenomegaly by CTAP 12/12/24
ECHO 12/17/24: EF 67%, aortic sclerosis
Plan:
He returns and his weight was up recently. He is now diuresing well. Would continue Lasix 40 mg IV twice daily.
Continue Farxiga 10 mg daily. CHF education.
He has persistent hypotension. Okay to continue midodrine and follow his blood pressure especially with diuresis. Follow creatinine
He has a known macrocytic anemia. Hemoglobin overall stable at 8.7. Continue folic acid and alcohol avoidance
Previous echo was reviewed from last admission. He has a preserved ejection fraction with no significant valvular disease.
Continue CPAP and treatments for sleep apnea
Continue to work on weight loss
Data Reviewed
-
EKG: Tracing Personally Visualized and interpreted
Radiology: Report Reviewed by me
Medical Tests (Nuc Med, Echo etc): Report Reviewed by me
Labs: Labs Reviewed by me
Old Records: Reviewed
[2024-12-29] MEDS: FOLVITE PO (13:01)
[2024-12-29 16:24] LABS: Hepatitis C Antibody Negative (Negative)
[2024-12-29 16:44] LABS: Glucose - Point of Care 133 mg/dl (70-99)
[2024-12-29] MEDS: FOLVITE 1 MG PO (18:00)
[2024-12-29 22:22] LABS: Glucose - Point of Care 108 mg/dl (70-99)
--- NOTE | 2024-12-29 23:30 | PTCARENOTE ---
Patient's 2300 BP 85/54 manually. Patient asymptomatic. Patient recieving IV Lasix 40mg BID. Patient also already receiving Midodrine TID. Virginia HUDSON made aware of BP. Extra dose of Midodrine ordered. See MAR. Will continue to monitor.
[2024-12-30] VITALS (7 sets, daily range): BP systolic 89–120; BP diastolic 42–72; BMI 40.8
--- NOTE | 2024-12-30 00:32 | PTCARENOTE ---
Patient's 2300 BP 83/49. Manual BP checked 85/54. Patient asymptomatic, Patient receives Midodrine TID. TRISTAN Sierra made aware of hypotension. Order received to give an additional dose of Midodrine now. See MAR. Will continue to monitor.
[2024-12-30 05:44] LABS: Hematocrit 27.6 % (39.0-52.0); Hemoglobin 8.9 g/dL (13.0-18.0); Mean Corp Hgb Conc. 32.2 g/dL (33.0-37.0); Mean Corpuscular Volume 117.9 fL (80.0-94.0); Nucleated Red Blood Cells % 0 % (-); Platelet Count 220 10^3/uL (130-400); Red Cell Dist. Width 18.4 % (11.5-14.5)
[2024-12-30] MEDS: SYNTHROID 25 MCG PO (05:54)
[2024-12-30 06:06] LABS: Blood Urea Nitrogen 13 mg/dl (9-20); Calcium 8.6 mg/dl (8.4-10.2); Carbon Dioxide 32 mmol/L (22-30); Chloride 102 mmol/L (98-107); Estimated Creatinine Clearance 116 ml/min; Glucose 82 mg/dl (70-99); Magnesium 2.1 mg/dl (1.6-2.3); Potassium 3.6 mmol/L (3.5-5.1); Sodium 137 mmol/L (135-145); eGFR > 60.00
[2024-12-30] MEDS: VITAMIN B1 100 MG PO (08:20)
[2024-12-30] MEDS: FARXIGA 10 MG PO (08:20)
[2024-12-30] MEDS: NEURONTIN 800 MG PO ×2 (08:21→19:55)
[2024-12-30] MEDS: LIPITOR 10 MG PO (08:21)
[2024-12-30] MEDS: ROXICODONE 5 MG PO ×2 (08:21→19:56)
[2024-12-30] MEDS: LOVENOX 40 MG SC ×2 (08:21→19:55)
[2024-12-30] MEDS: FOLVITE 2 MG PO ×2 (08:37→11:39)
[2024-12-30 08:40] LABS: Glucose - Point of Care 105 mg/dl (70-99)
[2024-12-30] MEDS: NOVOLOG FLEXPEN-LOW RESISTANCE SC ×2 (08:42→16:57)
--- NOTE | 2024-12-30 08:50 | VNURNOTE ---
Chart reviewed. Patient is current with [facility]. Will continue to follow hospital course and DC plans. Resumption referral accepted in [facility].
--- NOTE | 2024-12-30 10:11 | W.PN.CARDCBS ---
Today's Communication / Plan
-
His wt is coming down. Not clear that initial wt was accurate.
Cont Lasix 40 mg IV BID
Continue Farxiga 10 mg daily. CHF education.
Cont to monitor daily wts and cr.
Previous echo was reviewed from last admission with preserved ejection fraction with no significant valvular disease.
No need to repeat at this time
Cont Midodrine for hx of persistent hypotension.
He has a known macrocytic anemia.
Hemoglobin overall stable at 8.9 on Dec 30.
Continue folic acid and alcohol avoidance
Monitor H/H
Continue CPAP and treatments for sleep apnea
Impression / Plan
-
.
Impression:
Acute on chronic heart failure with preserved ejection fraction
Chronic anemia
B/L LE edema
RBBB
FLORENCIA
HTN
HLD
OA s/p L TKA
s/p laminectomy and spinal fusion
Former smoker/ETOH
Recent falls with rib fractures of L 4th, 5th, 6th ribs
Adenopathy and splenomegaly by CTAP 12/12/24
ECHO 12/17/24: EF 67%, aortic sclerosis
Plan:
He returns and his weight was up recently.
His wt is coming down. Not clear that initial wt was accurate.
Cont Lasix 40 mg IV BID
Continue Farxiga 10 mg daily. CHF education.
Cont to monitor daily wts and cr.
Previous echo was reviewed from last admission with preserved ejection fraction with no significant valvular disease.
No need to repeat at this time
Cont Midodrine for hx of persistent hypotension. He received additional midodrine Dec 30 am
He has a known macrocytic anemia.
Hemoglobin overall stable at 8.9 on Dec 30.
Continue folic acid and alcohol avoidance
Monitor H/H
Continue CPAP and treatments for sleep apnea
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
Subjective
Date of Service: December 30, 2024
Pt seen and examined. No complaints. No chest pain or shortness of breath.
Objective
Labs:
12/30/24 05:11
12/30/24 05:11
Labs
Hgb 8.9 g/dL (13.0-18.0) L 12/30/24 05:11
Hct 27.6 % (39.0-52.0) L 12/30/24 05:11
Plt Count 220 10^3/uL (130-400) 12/30/24 05:11
Sodium 137 mmol/L (135-145) 12/30/24 05:11
Potassium 3.6 mmol/L (3.5-5.1) 12/30/24 05:11
BUN 13 mg/dl (-) 12/30/24 05:11
Creatinine 1.0 mg/dL (0.7-1.3) 12/30/24 05:11
Glucose 82 mg/dl (70-99) 12/30/24 05:11
Vital Signs and I&O:
Vital Signs
Temp Pulse Resp BP Pulse Ox
97.9 F 87 16 89/42 93
12/30/24 07:48 12/30/24 07:48 12/30/24 07:48 12/30/24 07:48 12/30/24 07:48
Vital Signs
Temp Pulse Resp BP Pulse Ox
97.9 F 87 16 89/42 93
12/30/24 07:48 12/30/24 07:48 12/30/24 07:48 12/30/24 07:48 12/30/24 07:48
Intake & Output
12/28/24 12/29/24 12/30/24 12/31/24
06:59 06:59 06:59 06:59
Intake Total 1080 / 1080 1560 / 1560
Output Total 1350 / 1350 3650 / 3650
Balance -270 / -270 -2089 / -2089
Physical Exam
Physical Exam
General: No acute distress, AAOX3
Neck: Negative JVD
Heart: Regular, Negative S3 positive S1/S2, Negative S4, No murmur
Lungs: CTA b/l, negative wheezes/rales/rhonchi
Abd: Morbid obesity. Positive BS, NT/ND, neg rebound/rigidity/guarding
Ext: Negative cyanosis/clubbing/edema
Neuro: nonfocal
[2024-12-30] MEDS: LASIX 40 MG IV ×2 (11:42→16:30)
[2024-12-30] MEDS: TOPROL XL PO (11:46)
[2024-12-30 12:03] LABS: Glucose - Point of Care 160 mg/dl (70-99)
[2024-12-30] MEDS: NOVOLOG FLEXPEN-LOW RESISTANCE 1 UNITS SC (12:23)
--- NOTE | 2024-12-30 13:43 | W.PN.HOSP.TC ---
Today's Communication/Plan
-
Continue iv diuresis
Assessment / Plan
Assessment / Plan
#Decompensated HFpEF
#FLORENCIA not on CPAP
#Chronic venous insufficiency
- Last echo with preserved LVEF and normal RV size; noncompliant with CPAP
- Home regimen includes Lasix 40 mg daily, SGLT2i for GDMT; also on midodrine 3 times daily for hypotension
- Suspect FLORENCIA without use of CPAP is contributing to decompensation, with increased afterload effect
- Was started on IV Lasix 40 mg twice daily; clinically improved though I's and O's and weights inaccurate
- Warm and wet phenotype, has been stable on room air while awake
Plan
- Continue IV Lasix 40 mg twice daily, trend BMP + I's and O's + daily weight
- Increased metoprolol XL to 50 mg daily due to tachycardia
- Plan OP sleep study and CPAP, nocturnal O2 PRN here
- Monitor SpO2 with goal > 90%, continue telemetry
- Compression sleeves for CVI
- Consult cardiology
#Macrocytic anemia
#Folate deficiency
#Chronic alcoholism
- Hemoglobin baseline near 9, MCV near 115
- Has known folate deficiency on previous hospital stay due to alcoholism
- Continue with home thiamine and folate supplements, trend CBC
- MSAS protocol for withdrawal
#Hypothyroidism
- Was on 12.5 mcg of levothyroxine, TSH here 34, increased to 25 mcg
- Will continue to monitor for signs or symptoms of hypothyroidism
- Will need to follow-up OP for repeat TSH, thyroid US, anti-TPO antibody
#NIDDM with neuropathy
#HLD
- Home regimen includes SGLT2 inhibitor for diabetes, gabapentin for neuropathy
- Home meds also include moderate intensity statin for vascular risk reduction
- No known history of associated retinopathy or nephropathy
- Continue with ISS and Accu-Cheks while inpatient
#Hypotension
- Unclear etiology though question if associated with hyperthyroid state as above
- Home medications include midodrine 2.5 mg 3 times daily
- Continue home meds for now, wean midodrine as tolerated
#3 nodules identified measuring up to 2.8 mm.
-f/u outpt
#Former tobacco use
#Chronic pain on oxycodone
Diet: Diabetic, sodium restricted
Thromboprophylaxis: SQ Lovenox
CODE STATUS: Full code
Disposition: PT consulted
Anticipated Discharge: 24 - 48 hours
Subjective/Interval History
-
Date of Service: December 30, 2024
no acute events overnight
Objective Data
-
Labs:
Laboratory Results
12/30/24
05:11
WBC 3.5 L
Hgb 8.9 L
Hct 27.6 L
Plt Count 220
Sodium 137
Potassium 3.6
Chloride 102
Carbon Dioxide 32 H
BUN 13
Creatinine 1.0
Glucose 82
Calcium 8.6
Vital Signs:
Vital Signs
Temp Pulse Resp BP Pulse Ox
97.9 F 86 18 110/62 94
12/30/24 11:55 12/30/24 11:55 12/30/24 11:55 12/30/24 11:55 12/30/24 11:55
I&O
12/29/24 12/30/24 12/31/24
06:59 06:59 06:59
Intake Total 1080 / 1080 1560 / 1560
Output Total 1350 / 1350 3650 / 3650
Balance -270 / -270 -2089 / -2089
Review of Systems
-
History Source: Patient
All other systems: Reviewed and negative
Data Reviewed
-
Labs: Labs Reviewed by me, Discussed with Physician (Cardiology) and Discussed with Patient
--- NOTE | 2024-12-30 14:32 | CM ---
CM following to coordinate all discharge planning needs.
Pt is current with [facility] and services will resume at discharge.
No additional needs identified at this time. CM to continue to follow.
[2024-12-30] MEDS: FOLVITE 1 MG PO (16:31)
[2024-12-30 16:46] LABS: Glucose - Point of Care 116 mg/dl (70-99)
[2024-12-30 21:38] LABS: Glucose - Point of Care 114 mg/dl (70-99)
[2024-12-31] VITALS (7 sets, daily range): BP systolic 99–130; BP diastolic 57–65; PULSE 87; O2SAT 97; BMI 40.4
[2024-12-31] MEDS: SYNTHROID 25 MCG PO (05:34)
[2024-12-31 08:00] LABS: Glucose - Point of Care 93 mg/dl (70-99)
[2024-12-31] MEDS: NOVOLOG FLEXPEN-LOW RESISTANCE SC ×2 (08:03→16:34)
[2024-12-31] MEDS: VITAMIN B1 100 MG PO (08:43)
[2024-12-31] MEDS: FARXIGA 10 MG PO (08:43)
[2024-12-31] MEDS: LIPITOR 10 MG PO (08:44)
[2024-12-31] MEDS: NEURONTIN 800 MG PO ×2 (08:44→20:00)
[2024-12-31] MEDS: ROXICODONE 5 MG PO ×2 (08:44→20:01)
[2024-12-31] MEDS: FOLVITE 2 MG PO ×2 (08:44→11:32)
[2024-12-31] MEDS: LOVENOX 40 MG SC ×2 (08:45→19:59)
[2024-12-31] MEDS: LASIX 40 MG IV (08:45)
[2024-12-31 10:14] LABS: Hematocrit 30.2 % (39.0-52.0); Hemoglobin 9.6 g/dL (13.0-18.0); Mean Corp Hgb Conc. 31.8 g/dL (33.0-37.0); Mean Corpuscular Volume 117.5 fL (80.0-94.0); Platelet Count 244 10^3/uL (130-400); Red Cell Dist. Width 18.3 % (11.5-14.5)
[2024-12-31 10:27] LABS: ALT (SGPT) 23 U/L (0-50); AST (SGOT) 38 U/L (17-59); Albumin 3.1 g/dl (3.5-5.0); Alkaline Phosphatase 107 U/L (38-126); Blood Urea Nitrogen 12 mg/dl (9-20); Calcium 8.8 mg/dl (8.4-10.2); Carbon Dioxide 33 mmol/L (22-30); Chloride 102 mmol/L (98-107); Estimated Creatinine Clearance 115 ml/min; Glucose 99 mg/dl (70-99); Potassium 4.4 mmol/L (3.5-5.1); Sodium 139 mmol/L (135-145); Total Protein 6.5 g/dl (6.3-8.2); eGFR > 60.00
[2024-12-31] MEDS: SENOKOT-S 1 TABLET PO ×2 (11:31→20:01)
[2024-12-31] MEDS: TOPROL XL 50 MG PO (11:32)
[2024-12-31 12:33] LABS: Glucose - Point of Care 167 mg/dl (70-99)
[2024-12-31] MEDS: NOVOLOG FLEXPEN-LOW RESISTANCE 1 UNITS SC (13:30)
--- NOTE | 2024-12-31 13:55 | W.PN.CARDCBS ---
Addendum entered and electronically signed by Yesenia Trinh DO 12/31/24 22:46:
I saw and examined the patient.
The Climatology Teacher's note was reviewed and I agree with the note.
Comment: Patient was seen and examined. Shortness of breath at rest is better however was still short of breath with PT ambulation in halls later earlier today. Does not feel like lower extremity edema has improved. Denies chest pain.
GEN: Lying supine, NAD. Room air
LUNGS: CTA bilaterally, no wheezes/rales
CV: Reg, S1/S2, no murmur
ABD: soft, BS+, NT/ND
EXT: Chronic venous stasis changes with hyperpigmentation and +++ edema bilaterally
Plan:
-Recurrent admission for Decompensated HFpEF
-proBNP this admission 1600
-Lower extremity duplex negative for DVT 12/14/2024
- Increased IV Lasix dose from 40 IV twice daily to 60 IV twice daily.
- Monitor renal function and electrolytes. Creatinine stable
-Daily standing weights, CHF education
- Continue Farxiga
-Continue metoprolol succinate, increase to 50 mg daily
-traffic monitor specialist
- Tubigrips ordered
-Patient is on midodrine as an outpatient, blood pressure stable
- Suspected sleep apnea not currently on CPAP which is likely contributing to heart failure decompensation. Plan for sleep apnea testing following this hospitalization. While hospitalized, nocturnal O2. Patient states that he will be placed on
CPAP tonight.
Chronic macrocytic anemia and history of folate deficiency
-Hematology consult last admission
Pulmonary nodule and suspected sleep apnea
-Recommend pulmonary follow-up as an outpatient
History of chronic alcoholism�monitor closely for withdrawal
Hypothyroidism with elevated TSH 34.6 with compensated free T4�defer to primary. Would consider outpatient endocrine evaluation.
- TSH remains elevated with compensated free T4, defer treatment to primary service
Original Note:
Today's Communication / Plan
-
Increase IV lasix dosing
Tubigrip stockings
Follow blood pressures
Impression / Plan
-
.
Impression:
Acute on chronic heart failure with preserved ejection fraction
Chronic anemia
B/L LE edema
RBBB
FLORENCIA
HTN
HLD
OA s/p L TKA
s/p laminectomy and spinal fusion
Former smoker/ETOH
Recent falls with rib fractures of L 4th, 5th, 6th ribs
Adenopathy and splenomegaly by CTAP 12/12/24
ECHO 12/17/24: EF 67%, aortic sclerosis
Plan:
- Patient returns with acute on chronic heart failure with worsening lower extremity edema
- Continue IV diuresis. Will increase IV Lasix dose from 40 IV twice daily to 60 IV twice daily. Creatinine stable
- Continue Farxiga
- CHF education
- Tubigrips ordered
- In sinus rhythm on review of telemetry overnight with PVCs. Continue Toprol. Would consider de-escalating dose if needed to allow for more aggressive diuresis given EF preserved by recent echo 12/17
- He is chronically on midodrine, continue as needed, wean as able
- He has chronic anemia which is macrocytic. Hemoglobin stable at 9.6. Continue folic acid and alcohol avoidance.
- Continue CPAP for sleep apnea
- TSH remains elevated with compensated free T4, defer treatment to primary service
Progress Note - Drafter Refrigeration
Subjective
Date of Service: December 31, 2024
Denies chest pain, shortness of breath reports continued lower extremity edema
Objective
Labs:
12/31/24 09:48
12/31/24 09:48
Labs
Hgb 9.6 g/dL (13.0-18.0) L 12/31/24 09:48
Hct 30.2 % (39.0-52.0) L 12/31/24 09:48
Plt Count 244 10^3/uL (130-400) 12/31/24 09:48
Sodium 139 mmol/L (135-145) 12/31/24 09:48
Potassium 4.4 mmol/L (3.5-5.1) 12/31/24 09:48
BUN 12 mg/dl (9-20) 12/31/24 09:48
Creatinine 1.0 mg/dL (0.7-1.3) 12/31/24 09:48
Glucose 99 mg/dl (70-99) 12/31/24 09:48
Vital Signs and I&O:
Vital Signs
Temp Pulse Resp BP Pulse Ox
98.2 F 99 19 106/57 97
12/31/24 11:00 12/31/24 11:00 12/31/24 11:00 12/31/24 11:00 12/31/24 11:00
Vital Signs
Temp Pulse Resp BP Pulse Ox
98.2 F 99 19 106/57 97
12/31/24 11:00 12/31/24 11:00 12/31/24 11:00 12/31/24 11:00 12/31/24 11:00
Intake & Output
12/29/24 12/30/24 12/31/24 01/01/25
07:59 07:59 07:59 07:59
Intake Total 1200 / 1200 1440 / 1440 740 / 740
Output Total 2200 / 2200 2800 / 2800 2850 / 2850
Balance -1000 / -1000 -1360 / -1360 -2110 / -2110
Physical Exam
Physical Exam
GEN: No distress, awake, alert, oriented x3. Obese. Sitting in chair
HEENT: supple, anicteric, mmm
LUNGS: CTA bilaterally, no wheezes/rales
CV: Reg, S1/S2, no murmur
ABD: soft, BS+, NT/ND
EXT: No cyanosis, clubbing. 4+ edema of bilateral lower extremity
NEURO: Gross non-focal
SKIN: Warm, pink, dry. No rash
--- NOTE | 2024-12-31 14:12 | W.PN.HOSP.TC ---
Today's Communication/Plan
-
cont IV diuresis, increase to 60mg BID - monitor BPs
Assessment / Plan
Assessment / Plan
#Decompensated HFpEF
#FLORENCIA not on CPAP
#Chronic venous insufficiency
- Last echo with preserved LVEF and normal RV size; noncompliant with CPAP
- Home regimen includes Lasix 40 mg daily, SGLT2i for GDMT; also on midodrine 3 times daily for hypotension
- Suspect FLORENCIA without use of CPAP is contributing to decompensation, with increased afterload effect
- Was started on IV Lasix 40 mg twice daily; clinically improved though I's and O's and weights inaccurate
- Warm and wet phenotype, has been stable on room air while awake
Plan
- Increase Lasix to 60 mg twice daily, trend BMP + I's and O's + daily weight
- Increased metoprolol XL to 50 mg daily due to tachycardia
- Plan OP sleep study and CPAP, nocturnal O2 PRN here
- Monitor SpO2 with goal > 90%, continue telemetry
- Compression sleeves for CVI
- Consult cardiology
#Macrocytic anemia
#Folate deficiency
#Chronic alcoholism
- Hemoglobin baseline near 9, MCV near 115
- Has known folate deficiency on previous hospital stay due to alcoholism
- Continue with home thiamine and folate supplements, trend CBC
- MSAS protocol for withdrawal
#Hypothyroidism
- Was on 12.5 mcg of levothyroxine, TSH here 34, increased to 25 mcg
- Will continue to monitor for signs or symptoms of hypothyroidism
- Will need to follow-up OP for repeat TSH, thyroid US, anti-TPO antibody
#NIDDM with neuropathy
#HLD
- Home regimen includes SGLT2 inhibitor for diabetes, gabapentin for neuropathy
- Home meds also include moderate intensity statin for vascular risk reduction
- No known history of associated retinopathy or nephropathy
- Continue with ISS and Accu-Cheks while inpatient
#Hypotension
- Unclear etiology though question if associated with hyperthyroid state as above
- Home medications include midodrine 2.5 mg 3 times daily
- Continue home meds for now, midodrine as tolerated
#3 nodules identified measuring up to 2.8 mm.
-f/u outpt
#Former tobacco use
#Chronic pain on oxycodone
Diet: Diabetic, sodium restricted
Thromboprophylaxis: SQ Lovenox
CODE STATUS: Full code
Disposition: PT consulted
Anticipated Discharge: > 48 hours
Subjective/Interval History
-
Date of Service: December 31, 2024
Dyspneic on exertion
Objective Data
-
Labs:
Laboratory Results
12/31/24
09:48
WBC 3.6 L
Hgb 9.6 L
Hct 30.2 L
Plt Count 244
Sodium 139
Potassium 4.4
Chloride 102
Carbon Dioxide 33 H
BUN 12
Creatinine 1.0
Glucose 99
Calcium 8.8
Total Bilirubin 0.9
AST 38
ALT 23
Alkaline Phosphatase 107
Vital Signs:
Vital Signs
Temp Pulse Resp BP Pulse Ox
98.2 F 99 19 106/57 97
12/31/24 11:00 12/31/24 11:00 12/31/24 11:00 12/31/24 11:00 12/31/24 11:00
I&O
12/30/24 12/31/24 01/01/25
06:59 06:59 06:59
Intake Total 1560 / 1560 740 / 740
Output Total 3650 / 3650 2850 / 2850
Balance -2089 / -2089 -2109 /
Review of Systems
-
History Source: Patient
All other systems: Reviewed and negative
Data Reviewed
-
Labs: Labs Reviewed by me, Discussed with Physician (Cardiology) and Discussed with Patient
[2024-12-31] MEDS: LASIX 60 MG IV (15:26)
[2024-12-31 16:33] LABS: Glucose - Point of Care 98 mg/dl (70-99)
[2024-12-31] MEDS: FOLVITE 1 MG PO (17:19)
[2024-12-31 21:29] LABS: Glucose - Point of Care 125 mg/dl (70-99)
--- NOTE | 2024-12-31 23:08 | RESPNOTE ---
spoke with RECEPTION SPECIALIST after cpap order was placed. per RECEPTION SPECIALIST order was placed because 'pt asked for it'. order to be d/c'ed at this time until further clarification
--- NOTE | 2024-12-31 23:45 | RESPNOTE ---
cpap pulled. PT and RN aware
[2025-01-01] VITALS (7 sets, daily range): BP systolic 94–119; BP diastolic 48–70; PULSE 87; O2SAT 97; BMI 40.1
--- NOTE | 2025-01-01 03:04 | DOWNTIME ---
There was a [facility] Client Brine Process Operator Downtime on 01/01/2025 from 0100 to 01/01/2025 at 0215. Downtime documentation of patient's care, including medication administrations, has been reconciled in the electronic record per guidelines. Refer to the
patient's paper chart under the miscellaneous tab to see printed paper medication records and downtime forms.
[2025-01-01] MEDS: SYNTHROID 25 MCG PO (05:01)
[2025-01-01 07:22] LABS: Hematocrit 28.1 % (39.0-52.0); Hemoglobin 8.9 g/dL (13.0-18.0); Mean Corp Hgb Conc. 31.7 g/dL (33.0-37.0); Mean Corpuscular Volume 115.2 fL (80.0-94.0); Platelet Count 217 10^3/uL (130-400); Red Cell Dist. Width 18.3 % (11.5-14.5)
[2025-01-01] MEDS: TOPROL XL 50 MG PO (07:42)
[2025-01-01] MEDS: NEURONTIN 800 MG PO ×2 (07:43→21:12)
[2025-01-01] MEDS: FOLVITE 2 MG PO ×2 (07:43→11:14)
[2025-01-01] MEDS: FARXIGA 10 MG PO (07:43)
[2025-01-01] MEDS: LIPITOR 10 MG PO (07:43)
[2025-01-01] MEDS: ROXICODONE 5 MG PO ×2 (07:43→21:14)
[2025-01-01] MEDS: LASIX 60 MG IV ×2 (07:43→16:28)
[2025-01-01] MEDS: VITAMIN B1 100 MG PO (07:43)
[2025-01-01] MEDS: LOVENOX 40 MG SC ×2 (07:44→21:12)
[2025-01-01 07:46] LABS: ALT (SGPT) 22 U/L (0-50); AST (SGOT) 37 U/L (17-59); Albumin 2.7 g/dl (3.5-5.0); Alkaline Phosphatase 100 U/L (38-126); Blood Urea Nitrogen 11 mg/dl (9-20); Calcium 8.4 mg/dl (8.4-10.2); Carbon Dioxide 33 mmol/L (22-30); Chloride 101 mmol/L (98-107); Estimated Creatinine Clearance > 125 ml/min; Glucose 94 mg/dl (70-99); Potassium 3.4 mmol/L (3.5-5.1); Sodium 136 mmol/L (135-145); Total Protein 5.9 g/dl (6.3-8.2); eGFR > 60.00
[2025-01-01 07:53] LABS: Glucose - Point of Care 99 mg/dl (70-99)
[2025-01-01] MEDS: NOVOLOG FLEXPEN-LOW RESISTANCE SC ×3 (08:19→16:56)
--- NOTE | 2025-01-01 08:42 | W.PN.CARDCBS ---
Today's Communication / Plan
-
Cont IV diuresis
Impression / Plan
-
.
Impression:
Acute on chronic heart failure with preserved ejection fraction
Chronic anemia
B/L LE edema
RBBB
FLORENCIA
HTN
HLD
OA s/p L TKA
s/p laminectomy and spinal fusion
Former smoker/ETOH
Recent falls with rib fractures of L 4th, 5th, 6th ribs
Adenopathy and splenomegaly by CTAP 12/12/24
ECHO 12/17/24: EF 67%, aortic sclerosis
Plan:
Wt is down 2 lbs with increase in lasix to 60 mg IV BID. Cr stable.
May need to increase further if diuresis slows. His dry wt is unclear.
Cont HF education and Tubigrips
Cont Farxiga
EF is preserved from earlier this month. No need to repeat echo
Replete potassium
Remains sinus with PVCs
Could reduce Toprol dosing if need more room for bp in setting of increasing diuresis dosing.
Cont midodrine for bp support
He has chronic anemia which is macrocytic.
Hemoglobin stable at 8.9 on 01/01.
Continue folic acid and alcohol avoidance.
Monitor H/H
Apparently CPAP is suspected but he have not been using CPAP, defer to primary service regarding work up as resp removed CPAP last night.
TSH was elevated and primary service increased levothyroxine.
Progress Note - Mine Car Mechanic
Subjective
Date of Service: January 01, 2025
Pt seen and examined. No chest pain. Still with some shortness of breath.
Objective
Labs:
01/01/25 06:39
01/01/25 06:39
Labs
Hgb 8.9 g/dL (13.0-18.0) L 01/01/25 06:39
Hct 28.1 % (39.0-52.0) L 01/01/25 06:39
Plt Count 217 10^3/uL (130-400) 01/01/25 06:39
Sodium 136 mmol/L (135-145) 01/01/25 06:39
Potassium 3.4 mmol/L (3.5-5.1) L 01/01/25 06:39
BUN 11 mg/dl (9-20) 01/01/25 06:39
Creatinine 0.9 mg/dL (0.7-1.3) 01/01/25 06:39
Glucose 94 mg/dl (70-99) 01/01/25 06:39
Vital Signs and I&O:
Vital Signs
Temp Pulse Resp BP Pulse Ox
98.2 F 92 18 110/62 97
01/01/25 07:30 01/01/25 07:30 01/01/25 07:30 01/01/25 07:30 01/01/25 07:30
Vital Signs
Temp Pulse Resp BP Pulse Ox
98.2 F 92 18 110/62 97
01/01/25 07:30 01/01/25 07:30 01/01/25 07:30 01/01/25 07:30 01/01/25 07:30
Intake & Output
12/30/24 12/31/24 01/01/25 01/02/25
06:59 06:59 06:59 06:59
Intake Total 1560 / 1560 740 / 740 1050 / 1050
Output Total 3650 / 3650 2850 / 2850 2150 / 2150
Balance -2089 / -2089 -2109 / -0 -1099 / -1100
Physical Exam
Physical Exam
General: No acute distress, AAOX3
Neck: Negative JVD
Heart: Regular, Negative S3 positive S1/S2, Negative S4, No murmur
Lungs: CTA b/l, negative wheezes/rales/rhonchi
Abd: Positive BS, NT/ND, neg rebound/rigidity/guarding
Ext: Negative cyanosis/clubbing. + b/l 2+edema
Neuro: nonfocal
[2025-01-01] MEDS: KCL 40 MEQ PO (08:58)
[2025-01-01] MEDS: SENOKOT-S 1 TABLET PO ×2 (11:15→21:14)
[2025-01-01 11:48] LABS: Glucose - Point of Care 131 mg/dl (70-99)
--- NOTE | 2025-01-01 14:47 | W.PN.HOSP.TC ---
Today's Communication/Plan
-
continue diuresis
Assessment / Plan
Assessment / Plan
#Decompensated HFpEF
#FLORENCIA not on CPAP
#Chronic venous insufficiency
- Last echo with preserved LVEF and normal RV size; noncompliant with CPAP
- Home regimen includes Lasix 40 mg daily, SGLT2i for GDMT; also on midodrine 3 times daily for hypotension
- Suspect FLORENCIA without use of CPAP is contributing to decompensation, with increased afterload effect
- Was started on IV Lasix 40 mg twice daily; clinically improved though I's and O's and weights inaccurate
- Warm and wet phenotype, has been stable on room air while awake
Plan
- Increase Lasix to 60 mg twice daily, trend BMP + I's and O's + daily weight
- Increased metoprolol XL to 50 mg daily due to tachycardia
- Plan OP sleep study and CPAP, nocturnal O2 PRN here
- Monitor SpO2 with goal > 90%, continue telemetry
- Compression sleeves for CVI
- Consult cardiology
#Hypokalemia
-monitor and repletion
#Macrocytic anemia
#Folate deficiency
#Chronic alcoholism
- Hemoglobin baseline near 9, MCV near 115
- Has known folate deficiency on previous hospital stay due to alcoholism
- Continue with home thiamine and folate supplements, trend CBC
- MSAS protocol for withdrawal
#Hypothyroidism
- Was on 12.5 mcg of levothyroxine, TSH here 34, increased to 25 mcg
- Will continue to monitor for signs or symptoms of hypothyroidism
- Will need to follow-up OP for repeat TSH, thyroid US, anti-TPO antibody
#NIDDM with neuropathy
#HLD
- Home regimen includes SGLT2 inhibitor for diabetes, gabapentin for neuropathy
- Home meds also include moderate intensity statin for vascular risk reduction
- No known history of associated retinopathy or nephropathy
- Continue with ISS and Accu-Cheks while inpatient
#Hypotension
- Unclear etiology though question if associated with hyperthyroid state as above
- Home medications include midodrine 2.5 mg 3 times daily
- Continue home meds for now, midodrine as tolerated
#3 nodules identified measuring up to 2.8 mm.
-f/u outpt
#Former tobacco use
#Chronic pain on oxycodone
Diet: Diabetic, sodium restricted
Thromboprophylaxis: SQ Lovenox
CODE STATUS: Full code
Disposition: PT consulted
Anticipated Discharge: Within 24 hours
Subjective/Interval History
-
Date of Service: January 01, 2025
no acute events
Objective Data
-
Labs:
Laboratory Results
01/01/25
06:39
WBC 3.6 L
Hgb 8.9 L
Hct 28.1 L
Plt Count 217
Sodium 136
Potassium 3.4 L
Chloride 101
Carbon Dioxide 33 H
BUN 11
Creatinine 0.9
Glucose 94
Calcium 8.4
Total Bilirubin 0.8
AST 37
ALT 22
Alkaline Phosphatase 100
Vital Signs:
Vital Signs
Temp Pulse Resp BP Pulse Ox
98.1 F 88 18 94/48 96
01/01/25 10:57 01/01/25 10:57 01/01/25 10:57 01/01/25 10:57 01/01/25 10:57
I&O
12/31/24 01/01/25 01/02/25
06:59 06:59 06:59
Intake Total 740 / 740 1050 / 1050
Output Total 2850 / 2850 2150 / 2150
Balance -2110 / -2110 -1100 / -1100
Review of Systems
-
History Source: Patient
All other systems: Reviewed and negative
Data Reviewed
-
Labs: Labs Reviewed by me and Discussed with Patient
[2025-01-01] MEDS: FOLVITE 1 MG PO (16:30)
[2025-01-01 16:55] LABS: Glucose - Point of Care 113 mg/dl (70-99)
[2025-01-01 21:46] LABS: Glucose - Point of Care 114 mg/dl (70-99)
[2025-01-02 03:05] VITALS: BP 96/52
[2025-01-02] MEDS: SYNTHROID 25 MCG PO (05:31)
[2025-01-02 05:39] LABS: Hematocrit 27.4 % (39.0-52.0); Hemoglobin 8.7 g/dL (13.0-18.0); Mean Corp Hgb Conc. 31.8 g/dL (33.0-37.0); Mean Corpuscular Volume 115.1 fL (80.0-94.0); Platelet Count 199 10^3/uL (130-400); Red Cell Dist. Width 18.3 % (11.5-14.5)
[2025-01-02 06:00] VITALS: BMI 39.8
[2025-01-02 06:09] LABS: ALT (SGPT) 23 U/L (0-50); AST (SGOT) 38 U/L (17-59); Albumin 2.8 g/dl (3.5-5.0); Alkaline Phosphatase 92 U/L (38-126); Blood Urea Nitrogen 13 mg/dl (9-20); Calcium 8.5 mg/dl (8.4-10.2); Carbon Dioxide 33 mmol/L (22-30); Chloride 100 mmol/L (98-107); Estimated Creatinine Clearance 114 ml/min; Glucose 97 mg/dl (70-99); Potassium 3.6 mmol/L (3.5-5.1); Sodium 137 mmol/L (135-145); Total Protein 5.9 g/dl (6.3-8.2); eGFR > 60.00
[2025-01-02 07:22] VITALS: BP 99/48
[2025-01-02 08:02] LABS: Glucose - Point of Care 104 mg/dl (70-99)
--- NOTE | 2025-01-02 08:08 | W.PN.CARDCBS ---
Addendum entered and electronically signed by Arnoldo Holm DO 01/02/25 14:46:
I saw and examined the patient.
The Regional Recruiter's note was reviewed and I agree with the note.
Comment:
Plan:
His weight continues to come down with increased Lasix dosing. Continue IV Lasix diuresis
His dry weight is unclear.
Continue diuresis until his weight plateaus
Continue to monitor I's and O's Daily weights and creatinine.
His recent echo was reviewed showing preserved LV function.
Continue midodrine for blood pressure support
H/H remained stable
Reviewed with primary service
Original Note:
Today's Communication / Plan
-
Ongoing IV diuresis, goal weight unknown
Impression / Plan
-
PCP: Maite Lnog PA-C
Cardiology: Dr. Gaitan
Impression:
Admitted with SOB and acute on chronic HF 12/27/2024
Acute on chronic HFpEF
Chronic anemia
B/L LE edema
RBBB
FLORENCIA
HTN
HLD
OA s/p L TKA
s/p laminectomy and spinal fusion
Former smoker/ETOH use disorder
Recent falls with rib fractures of L 4th, 5th, 6th ribs
Adenopathy and splenomegaly by CTAP 12/12/24
ECHO 12/17/24: EF 67%, aortic sclerosis
Plan:
-Overall weight is down 15 lbs with a weight of 301 lbs on 01/02/2025. Patient reports some symptomatic improvement in SOB, but ongoing LE edema and bloating. Dry weight unknown.
-Patient diuresing 2-3 lbs a day with Lasix 60 mg IV BID. Patient was taking Lasix 40 mg PO daily prior to admission.
-EF preserved to 67% by echo 12/17/2024
-Outpatient dose of Toprol-XL increased to 50 mg daily this admission
-Patient is not chronically on SELINA/ARB/ARNI/aldosterone antagonist due to hypotension
-Patient is chronically on midodrine 2.5 mg TID due to hypotension which makes it difficult to uptitrate GDMT
-Patient was taking Jardiance 25 mg daily prior to admission and this was changed to Farxiga 10 mg daily due to formulary reasons at time of admission, patient should resume his usual dose of Jardiance when he is discharged.
-Patient has EtOH use disorder and chronic macrocytic anemia. Alcohol avoidance was suggested.
-Patient suspected to have FLORENCIA based on body habitus, CPAP was added this admission but patient has been removing at night.
Progress Note - Broacher
Subjective
Date of Service: January 02, 2025
He thinks he is doing better, but not to baseline
Objective
Labs:
01/02/25 05:11
01/02/25 05:11
Labs
Hgb 8.7 g/dL (13.0-18.0) L 01/02/25 05:11
Hct 27.4 % (39.0-52.0) L 01/02/25 05:11
Plt Count 199 10^3/uL (130-400) 01/02/25 05:11
Sodium 137 mmol/L (135-145) 01/02/25 05:11
Potassium 3.6 mmol/L (3.5-5.1) 01/02/25 05:11
BUN 13 mg/dl (9-20) 01/02/25 05:11
Creatinine 1.0 mg/dL (0.7-1.3) 01/02/25 05:11
Glucose 97 mg/dl (70-99) 01/02/25 05:11
Vital Signs and I&O:
Vital Signs
Temp Pulse Resp BP Pulse Ox
98.1 F 99 17 99/48 97
01/02/25 07:22 01/02/25 07:22 01/02/25 07:22 01/02/25 07:22 01/02/25 07:22
Vital Signs
Temp Pulse Resp BP Pulse Ox
98.1 F 99 17 99/48 97
01/02/25 07:22 01/02/25 07:22 01/02/25 07:22 01/02/25 07:22 01/02/25 07:22
Intake & Output
12/31/24 01/01/25 01/02/25 01/03/25
06:59 06:59 06:59 06:59
Intake Total 740 / 740 1050 / 1050 1560 / 1560
Output Total 2850 / 2850 2150 / 2150 2400 / 2400
Balance -2110 / -2110 -1100 / -1100 -840 / -840
Physical Exam
Physical Exam
GEN: NAD, AAO x 3
LUNGS: RA, no audible wheeze
CV: SR on telemetry
[2025-01-02] MEDS: LOVENOX 40 MG SC ×2 (09:16→19:50)
[2025-01-02] MEDS: SENOKOT-S 1 TABLET PO ×2 (09:17→19:50)
[2025-01-02] MEDS: ROXICODONE 5 MG PO ×2 (09:17→19:50)
[2025-01-02] MEDS: VITAMIN B1 100 MG PO (09:17)
[2025-01-02] MEDS: NEURONTIN 800 MG PO ×2 (09:17→19:50)
[2025-01-02] MEDS: LIPITOR 10 MG PO (09:17)
[2025-01-02] MEDS: TOPROL XL 50 MG PO (09:17)
[2025-01-02] MEDS: FOLVITE 2 MG PO ×2 (09:17→12:50)
[2025-01-02] MEDS: NOVOLOG FLEXPEN-LOW RESISTANCE SC ×2 (09:18→17:14)
[2025-01-02] MEDS: FARXIGA 10 MG PO (09:18)
[2025-01-02] MEDS: LASIX 60 MG IV ×2 (09:18→15:25)
[2025-01-02 11:10] VITALS: BP 108/66
[2025-01-02 12:08] LABS: Glucose - Point of Care 165 mg/dl (70-99)
[2025-01-02] MEDS: NOVOLOG FLEXPEN-LOW RESISTANCE 1 UNITS SC (12:52)
--- NOTE | 2025-01-02 13:16 | W.PN.HOSP.TC ---
Today's Communication/Plan
-
Cont IV diuretics
Monitor weights
Assessment / Plan
Assessment / Plan
#Decompensated HFpEF
#FLORENCIA not on CPAP
#Chronic venous insufficiency
- Last echo with preserved LVEF and normal RV size; noncompliant with CPAP
- Home regimen includes Lasix 40 mg daily, SGLT2i for GDMT; also on midodrine 3 times daily for hypotension
- Suspect FLORENCIA without use of CPAP is contributing to decompensation, with increased afterload effect
- Was started on IV Lasix 40 mg twice daily; clinically improved though I's and O's and weights inaccurate
- Warm and wet phenotype, has been stable on room air while awake
Plan
- Lasix to 60 mg twice daily, trend BMP + I's and O's + daily weight
- Increased metoprolol XL to 50 mg daily due to tachycardia
- Plan OP sleep study and CPAP, nocturnal O2 PRN here
- Monitor SpO2 with goal > 90%, continue telemetry
- Compression sleeves for CVI
- Consult cardiology
#Hypokalemia
-monitor and repletion
#Macrocytic anemia
#Folate deficiency
#Chronic alcoholism
- Hemoglobin baseline near 9, MCV near 115
- Has known folate deficiency on previous hospital stay due to alcoholism
- Continue with home thiamine and folate supplements, trend CBC
- MSAS protocol for withdrawal
#Hypothyroidism
- Was on 12.5 mcg of levothyroxine, TSH here 34, increased to 25 mcg
- Will continue to monitor for signs or symptoms of hypothyroidism
- Will need to follow-up OP for repeat TSH, thyroid US, anti-TPO antibody
#NIDDM with neuropathy
#HLD
- Home regimen includes SGLT2 inhibitor for diabetes, gabapentin for neuropathy
- Home meds also include moderate intensity statin for vascular risk reduction
- No known history of associated retinopathy or nephropathy
- Continue with ISS and Accu-Cheks while inpatient
#Hypotension
- Unclear etiology though question if associated with hyperthyroid state as above
- Home medications include midodrine 2.5 mg 3 times daily
- Continue home meds for now, midodrine as tolerated
#3 nodules identified measuring up to 2.8 mm.
-f/u outpt
#Former tobacco use
#Chronic pain on oxycodone
Diet: Diabetic, sodium restricted
Thromboprophylaxis: SQ Lovenox
CODE STATUS: Full code
Disposition: PT consulted
Anticipated Discharge: > 48 hours
Subjective/Interval History
-
Date of Service: January 02, 2025
No acute events overnight
Objective Data
-
Labs:
Laboratory Results
01/02/25
05:11
WBC 3.4 L
Hgb 8.7 L
Hct 27.4 L
Plt Count 199
Sodium 137
Potassium 3.6
Chloride 100
Carbon Dioxide 33 H
BUN 13
Creatinine 1.0
Glucose 97
Calcium 8.5
Total Bilirubin 0.9
AST 38
ALT 23
Alkaline Phosphatase 92
Vital Signs:
Vital Signs
Temp Pulse Resp BP Pulse Ox
98.1 F 90 17 108/66 97
01/02/25 11:10 01/02/25 11:10 01/02/25 11:10 01/02/25 11:10 01/02/25 11:10
I&O
01/01/25 01/02/25 01/03/25
06:59 06:59 06:59
Intake Total 1050 / 1050 1560 / 1560
Output Total 2150 / 2150 2400 / 2400
Balance -1100 / -1100 -840 / -840
Review of Systems
-
History Source: Patient
All other systems: Reviewed and negative
Physical Exam
-
General: Well Developed, No Apparent Distress and Morbidly Obese
HEENT: Normocephalic, Atraumatic, Moist Mucous Membranes and Anicteric
Respiratory: Non Labored Respirations and Decreased Breath Sounds; Negative Wheezes, Rales, Rhonchi or Accessory Resp Muscle Use
Cardiac: Regular Rhythm, S1/S2 and Tachycardic; Negative Murmur, Rub or Gallop
GI: Soft, Nontender, Nondistended and Normal Bowel Sounds
Musculoskeletal: No Clubbing, No Cyanosis and No Edema
Skin: Warm and Dry; Negative Rash
Neuro: AO x 3, Nonfocal/Grossly Intact and Central Nerve's Intact
Psych: Calm
Data Reviewed
-
Diagnostic Radiology: Report Reviewed by me
Labs: Labs Reviewed by me and Discussed with Patient
[2025-01-02 15:13] VITALS: BP 127/77
[2025-01-02 16:41] LABS: Glucose - Point of Care 95 mg/dl (70-99)
[2025-01-02] MEDS: FOLVITE 1 MG PO (17:20)
[2025-01-02 19:00] VITALS: BP 132/69
[2025-01-02 21:18] LABS: Glucose - Point of Care 121 mg/dl (70-99)
[2025-01-02 23:00] VITALS: BP 108/67
[2025-01-03] VITALS (7 sets, daily range): BP systolic 90–132; BP diastolic 39–70; BMI 39.9
[2025-01-03] MEDS: SYNTHROID 25 MCG PO (05:11)
[2025-01-03 05:50] LABS: Hematocrit 26.3 % (39.0-52.0); Hemoglobin 8.6 g/dL (13.0-18.0); Mean Corp Hgb Conc. 32.7 g/dL (33.0-37.0); Mean Corpuscular Volume 109.6 fL (80.0-94.0); Platelet Count 209 10^3/uL (130-400); Red Cell Dist. Width 18.2 % (11.5-14.5)
[2025-01-03 06:12] LABS: ALT (SGPT) 25 U/L (0-50); AST (SGOT) 41 U/L (17-59); Albumin 2.8 g/dl (3.5-5.0); Alkaline Phosphatase 91 U/L (38-126); Blood Urea Nitrogen 12 mg/dl (9-20); Calcium 8.6 mg/dl (8.4-10.2); Carbon Dioxide 34 mmol/L (22-30); Chloride 100 mmol/L (98-107); Estimated Creatinine Clearance 114 ml/min; Glucose 99 mg/dl (70-99); Potassium 3.5 mmol/L (3.5-5.1); Sodium 138 mmol/L (135-145); Total Protein 6.0 g/dl (6.3-8.2); eGFR > 60.00
[2025-01-03 07:34] LABS: Glucose - Point of Care 99 mg/dl (70-99)
[2025-01-03] MEDS: NOVOLOG FLEXPEN-LOW RESISTANCE SC ×3 (08:44→16:28)
[2025-01-03] MEDS: LIPITOR 10 MG PO (09:37)
[2025-01-03] MEDS: TOPROL XL 50 MG PO (09:37)
[2025-01-03] MEDS: NEURONTIN 800 MG PO ×2 (09:37→20:41)
[2025-01-03] MEDS: SENOKOT-S 1 TABLET PO ×2 (09:37→20:42)
[2025-01-03] MEDS: VITAMIN B1 100 MG PO (09:38)
[2025-01-03] MEDS: FARXIGA 10 MG PO (09:38)
[2025-01-03] MEDS: LOVENOX 40 MG SC ×2 (09:38→20:42)
[2025-01-03] MEDS: LASIX 60 MG IV (09:39)
[2025-01-03] MEDS: FOLVITE 2 MG PO ×2 (09:42→12:04)
[2025-01-03] MEDS: ROXICODONE 5 MG PO ×2 (09:42→20:41)
[2025-01-03 11:57] LABS: Glucose - Point of Care 137 mg/dl (70-99)
--- NOTE | 2025-01-03 12:54 | W.PN.CARDCBS ---
Addendum entered and electronically signed by Keaton Gaitan MD 01/03/25 13:06:
Of note weight is 302 pounds currently and was 315 when he was discharged a few weeks ago. Unclear what his new dry weight will be.
Original Note:
Today's Communication / Plan
-
Diuresis may have plateaued
Will try Lasix on 20 mg IV twice daily
May need to consider metolazone if remains volume overloaded
Impression / Plan
-
PCP: Maite Long PA-C
Cardiology: Dr. Gaiatn
Impression:
Admitted with SOB and acute on chronic HF 12/27/2024
Acute on chronic HFpEF
Chronic anemia
B/L LE edema
RBBB
FLORENCIA
HTN
HLD
OA s/p L TKA
s/p laminectomy and spinal fusion
Former smoker/ETOH use disorder
Recent falls with rib fractures of L 4th, 5th, 6th ribs
Adenopathy and splenomegaly by CTAP 12/12/24
ECHO 12/17/24: EF 67%, aortic sclerosis
Plan:
Overall weight is down 14 lbs with a weight of 302 lbs on 01/03/2025. Weight seems to have plateaued and unclear if he is at dry weight
Will try higher dose of Lasix 120 mg IV twice daily.
May need to consider metolazone
Patient is not chronically on SELINA/ARB/ARNI/aldosterone antagonist due to hypotension
Patient is chronically on midodrine 2.5 mg TID due to hypotension which makes it difficult to uptitrate GDMT
Patient was taking Jardiance 25 mg daily prior to admission and this was changed to Farxiga 10 mg daily due to formulary reasons at time of admission, patient should resume his usual dose of Jardiance when he is discharged.
Patient suspected to have FLORENCIA based on body habitus, CPAP was added this admission but patient has been removing at night.
Discussed with primary service
Progress Note - Director Call
Subjective
Date of Service: January 03, 2025
No complaints
Objective
Labs:
01/03/25 05:06
01/03/25 05:06
Labs
Hgb 8.6 g/dL (13.0-18.0) L 01/03/25 05:06
Hct 26.3 % (39.0-52.0) L 01/03/25 05:06
Plt Count 209 10^3/uL (130-400) 01/03/25 05:06
Sodium 138 mmol/L (135-145) 01/03/25 05:06
Potassium 3.5 mmol/L (3.5-5.1) 01/03/25 05:06
BUN 12 mg/dl (9-20) 01/03/25 05:06
Creatinine 1.0 mg/dL (0.7-1.3) 01/03/25 05:06
Glucose 99 mg/dl (70-99) 01/03/25 05:06
Vital Signs and I&O:
Vital Signs
Temp Pulse Resp BP Pulse Ox
98.3 F 91 17 103/58 97
01/03/25 11:11 01/03/25 11:11 01/03/25 11:11 01/03/25 11:11 01/03/25 11:11
Vital Signs
Temp Pulse Resp BP Pulse Ox
98.3 F 91 17 103/58 97
01/03/25 11:11 01/03/25 11:11 01/03/25 11:11 01/03/25 11:11 01/03/25 11:11
Intake & Output
01/01/25 01/02/25 01/03/25 01/04/25
06:59 06:59 06:59 06:59
Intake Total 1050 / 1050 1560 / 1560 1200 / 1200
Output Total 2150 / 2150 2400 / 2400 2950 / 2950
Balance -1100 / -1100 -840 / -840 -1750 / -1750
Physical Exam
Physical Exam
General: Well developed, well nourished in NAD.
Neck: Supple, no JVD, HJR, carotids +2 B/L, no bruits bilaterally.
Heart: Non displaced PMI, RRR, no murmurs, No S3, S4, no rubs.
Lungs: Clear to auscultation bilaterally, no wheeze, rhonchi, rubs bilaterally,
normal expiratory phase.
Extremities: No clubbing, cyanosis or edema bilaterally.
Neuro: Grossly nonfocal, awake, alert and oriented x3.
--- NOTE | 2025-01-03 14:29 | W.PN.HOSP.TC ---
Today's Communication/Plan
-
Increase furosemide to 120 mg twice daily IV
Follow-up BMP, blood pressures
Assessment / Plan
Assessment / Plan
#Decompensated HFpEF
#FLORENCIA not on CPAP
#Chronic venous insufficiency
- Last echo with preserved LVEF and normal RV size; noncompliant with CPAP
- Home regimen includes Lasix 40 mg daily, SGLT2i for GDMT; also on midodrine 3 times daily for hypotension
- Suspect FLORENCIA without use of CPAP is contributing to decompensation, with increased afterload effect
- Was started on IV Lasix 40 mg twice daily; clinically improved though I's and O's and weights inaccurate
- Warm and wet phenotype, has been stable on room air while awake
Plan
- Increase Lasix to 120 mg twice daily, trend BMP + I's and O's + daily weight
- Increased metoprolol XL to 50 mg daily due to tachycardia
- Plan OP sleep study and CPAP, nocturnal O2 PRN here
- Monitor SpO2 with goal > 90%, continue telemetry
- Compression sleeves for CVI
- Consult cardiology
#Hypokalemia
-monitor and repletion
#Macrocytic anemia
#Folate deficiency
#Chronic alcoholism
- Hemoglobin baseline near 9, MCV near 115
- Has known folate deficiency on previous hospital stay due to alcoholism
- Continue with home thiamine and folate supplements, trend CBC
- MSAS protocol for withdrawal
#Hypothyroidism
- Was on 12.5 mcg of levothyroxine, TSH here 34, increased to 25 mcg
- Will continue to monitor for signs or symptoms of hypothyroidism
- Will need to follow-up OP for repeat TSH, thyroid US, anti-TPO antibody
#NIDDM with neuropathy
#HLD
- Home regimen includes SGLT2 inhibitor for diabetes, gabapentin for neuropathy
- Home meds also include moderate intensity statin for vascular risk reduction
- No known history of associated retinopathy or nephropathy
- Continue with ISS and Accu-Cheks while inpatient
#Hypotension
- Unclear etiology though question if associated with hyperthyroid state as above
- Home medications include midodrine 2.5 mg 3 times daily
- Continue home meds for now, midodrine as tolerated
#3 nodules identified measuring up to 2.8 mm.
-f/u outpt
#Former tobacco use
#Chronic pain on oxycodone
Diet: Diabetic, sodium restricted
Thromboprophylaxis: SQ Lovenox
CODE STATUS: Full code
Disposition: PT consulted
Anticipated Discharge: 24 - 48 hours
Subjective/Interval History
-
Date of Service: January 03, 2025
No significant change from yesterday
Objective Data
-
Labs:
Laboratory Results
01/03/25
05:06
WBC 3.7 L
Hgb 8.6 L
Hct 26.3 L
Plt Count 209
Sodium 138
Potassium 3.5
Chloride 100
Carbon Dioxide 34 H
BUN 12
Creatinine 1.0
Glucose 99
Calcium 8.6
Total Bilirubin 0.8
AST 41
ALT 25
Alkaline Phosphatase 91
Vital Signs:
Vital Signs
Temp Pulse Resp BP Pulse Ox
98.3 F 91 17 103/58 97
01/03/25 11:11 01/03/25 11:11 01/03/25 11:11 01/03/25 11:11 01/03/25 11:11
I&O
01/02/25 01/03/25 01/04/25
06:59 06:59 06:59
Intake Total 1560 / 1560 1200 / 1200
Output Total 2400 / 2400 2950 / 2950
Balance -840 / -840 -1750 / -1750
Review of Systems
-
History Source: Patient
All other systems: Reviewed and negative
Physical Exam
-
General: Well Developed, No Apparent Distress and Morbidly Obese
HEENT: Normocephalic, Atraumatic, Moist Mucous Membranes and Anicteric
Respiratory: Non Labored Respirations and Decreased Breath Sounds; Negative Wheezes, Rales, Rhonchi or Accessory Resp Muscle Use
Cardiac: Regular Rhythm, S1/S2 and Tachycardic; Negative Murmur, Rub or Gallop
GI: Soft, Nontender, Nondistended and Normal Bowel Sounds
Musculoskeletal: No Clubbing, No Cyanosis and No Edema
Skin: Warm and Dry; Negative Rash
Neuro: AO x 3, Nonfocal/Grossly Intact and Central Nerve's Intact
Psych: Calm
Data Reviewed
-
Ultrasound: Report Reviewed by me
Labs: Labs Reviewed by me
[2025-01-03 16:26] LABS: Glucose - Point of Care 127 mg/dl (70-99)
[2025-01-03] MEDS: LASIX 120 MG IV (16:44)
[2025-01-03] MEDS: FOLVITE 1 MG PO (17:59)
[2025-01-03 21:50] LABS: Glucose - Point of Care 104 mg/dl (70-99)
[2025-01-04 03:00] VITALS: BP 106/66
[2025-01-04 06:00] VITALS: BMI 39.2
[2025-01-04] MEDS: SYNTHROID 25 MCG PO (06:11)
[2025-01-04 07:58] LABS: Glucose - Point of Care 119 mg/dl (70-99)
[2025-01-04 08:07] VITALS: BP 96/66
[2025-01-04 08:52] LABS: Hematocrit 27.6 % (39.0-52.0); Hemoglobin 8.9 g/dL (13.0-18.0); Mean Corp Hgb Conc. 32.2 g/dL (33.0-37.0); Mean Corpuscular Volume 110.8 fL (80.0-94.0); Platelet Count 227 10^3/uL (130-400); Red Cell Dist. Width 18.0 % (11.5-14.5)
[2025-01-04] MEDS: NOVOLOG FLEXPEN-LOW RESISTANCE SC ×3 (09:14→17:21)
[2025-01-04] MEDS: ROXICODONE 5 MG PO ×2 (09:15→21:47)
[2025-01-04] MEDS: FARXIGA 10 MG PO (09:16)
[2025-01-04] MEDS: VITAMIN B1 100 MG PO (09:16)
[2025-01-04] MEDS: FOLVITE 2 MG PO ×2 (09:17→11:37)
[2025-01-04] MEDS: NEURONTIN 800 MG PO ×2 (09:17→21:46)
[2025-01-04] MEDS: LIPITOR 10 MG PO (09:17)
[2025-01-04] MEDS: SENOKOT-S 1 TABLET PO ×2 (09:17→21:47)
[2025-01-04] MEDS: LASIX 120 MG IV ×2 (09:18→15:52)
[2025-01-04] MEDS: LOVENOX 40 MG SC ×2 (09:18→21:46)
[2025-01-04 09:20] LABS: ALT (SGPT) 30 U/L (0-50); AST (SGOT) 47 U/L (17-59); Albumin 3.1 g/dl (3.5-5.0); Alkaline Phosphatase 94 U/L (38-126); Blood Urea Nitrogen 13 mg/dl (9-20); Calcium 8.8 mg/dl (8.4-10.2); Carbon Dioxide 35 mmol/L (22-30); Chloride 98 mmol/L (98-107); Estimated Creatinine Clearance 113 ml/min; Glucose 103 mg/dl (70-99); Potassium 3.8 mmol/L (3.5-5.1); Sodium 134 mmol/L (135-145); Total Protein 6.6 g/dl (6.3-8.2); eGFR > 60.00
--- NOTE | 2025-01-04 11:14 | W.PN.CARDCBS ---
Today's Communication / Plan
-
Continue IV Lasix
Impression / Plan
-
PCP: Maite Long PA-C
Cardiology: Dr. Gaitan
Impression:
Admitted with SOB and acute on chronic HF 12/27/2024
Acute on chronic HFpEF
Chronic anemia
B/L LE edema
RBBB
FLORENCIA
HTN
HLD
OA s/p L TKA
s/p laminectomy and spinal fusion
Former smoker/ETOH use disorder
Recent falls with rib fractures of L 4th, 5th, 6th ribs
Adenopathy and splenomegaly by CTAP 12/12/24
ECHO 12/17/24: EF 67%, aortic sclerosis
Plan:
Overall weight is down 19 lbs with a weight of 207 lbs on 01/04/2025. He lost 5 pounds in the past 24 hours 120 mg IV twice daily Lasix
He reports his weight on last discharge was 306 pounds so he appears to be below dry weight
Will continue IV Lasix as renal function remains stable
Patient is not chronically on SELINA/ARB/ARNI/aldosterone antagonist due to hypotension
Patient is chronically on midodrine 2.5 mg TID due to hypotension which makes it difficult to uptitrate GDMT
Patient was taking Jardiance 25 mg daily prior to admission and this was changed to Farxiga 10 mg daily due to formulary reasons at time of admission, patient should resume his usual dose of Jardiance when he is discharged.
Patient suspected to have FLORENCIA based on body habitus, CPAP was added this admission but patient has been removing at night.
Discussed with primary service
Progress Note - Microbiology Instructor
Subjective
Date of Service: January 04, 2025
No complaints
Objective
Labs:
01/04/25 08:07
01/04/25 08:07
Labs
Hgb 8.9 g/dL (13.0-18.0) L 01/04/25 08:07
Hct 27.6 % (39.0-52.0) L 01/04/25 08:07
Plt Count 227 10^3/uL (130-400) 01/04/25 08:07
Sodium 134 mmol/L (135-145) L 01/04/25 08:07
Potassium 3.8 mmol/L (3.5-5.1) 01/04/25 08:07
BUN 13 mg/dl (9-20) 01/04/25 08:07
Creatinine 1.0 mg/dL (0.7-1.3) 01/04/25 08:07
Glucose 103 mg/dl (70-99) H 01/04/25 08:07
Vital Signs and I&O:
Vital Signs
Temp Pulse Resp BP Pulse Ox
97.6 F 96 20 96/66 94
01/04/25 08:07 01/04/25 08:07 01/04/25 08:07 01/04/25 08:07 01/04/25 08:07
Vital Signs
Temp Pulse Resp BP Pulse Ox
97.6 F 96 20 96/66 94
01/04/25 08:07 01/04/25 08:07 01/04/25 08:07 01/04/25 08:07 01/04/25 08:07
Intake & Output
01/02/25 01/03/25 01/04/25 01/05/25
06:59 06:59 06:59 06:59
Intake Total 1560 / 1560 1200 / 1200 1320 / 1320
Output Total 2400 / 2400 2950 / 2950 1850 / 1850
Balance -840 / -840 -1750 / -1750 -530 / -530
Physical Exam
Physical Exam
General: Well developed, well nourished in NAD.
Neck: Supple, no JVD, HJR, carotids +2 B/L, no bruits bilaterally.
Heart: Non displaced PMI, RRR, no murmurs, No S3, S4, no rubs.
Lungs: Scattered rhonchi at the bases
Extremities: No clubbing, cyanosis or edema bilaterally.
Neuro: Grossly nonfocal, awake, alert and oriented x3.
[2025-01-04] MEDS: TOPROL XL 50 MG PO (11:36)
[2025-01-04 11:55] VITALS: BP 99/67; PULSE 88; O2SAT 100
[2025-01-04 12:17] LABS: Glucose - Point of Care 126 mg/dl (70-99)
--- NOTE | 2025-01-04 14:14 | W.PN.HOSP.TC ---
Today's Communication/Plan
-
Continue diuresis, monitor daily weights I's and O's
Assessment / Plan
Assessment / Plan
#Decompensated HFpEF
#FLORENCIA not on CPAP
#Chronic venous insufficiency
- Last echo with preserved LVEF and normal RV size; noncompliant with CPAP
- Home regimen includes Lasix 40 mg daily, SGLT2i for GDMT; also on midodrine 3 times daily for hypotension
- Suspect FLORENCIA without use of CPAP is contributing to decompensation, with increased afterload effect
- Was started on IV Lasix 40 mg twice daily; clinically improved though I's and O's and weights inaccurate
- Warm and wet phenotype, has been stable on room air while awake
Plan
- Continue Lasix to 120 mg twice daily, trend BMP + I's and O's + daily weight
- Increased metoprolol XL to 50 mg daily due to tachycardia
- Plan OP sleep study and CPAP, nocturnal O2 PRN here
- Monitor SpO2 with goal > 90%, continue telemetry
- Compression sleeves for CVI
- Consult cardiology
#Hypokalemia
-monitor and repletion
#Macrocytic anemia
#Folate deficiency
#Chronic alcoholism
- Hemoglobin baseline near 9, MCV near 115
- Has known folate deficiency on previous hospital stay due to alcoholism
- Continue with home thiamine and folate supplements, trend CBC
- MSAS protocol for withdrawal
#Hyponatremia
� Mild
� Continue to monitor
#Hypothyroidism
- Was on 12.5 mcg of levothyroxine, TSH here 34, increased to 25 mcg
- Will continue to monitor for signs or symptoms of hypothyroidism
- Will need to follow-up OP for repeat TSH, thyroid US, anti-TPO antibody
#NIDDM with neuropathy
#HLD
- Home regimen includes SGLT2 inhibitor for diabetes, gabapentin for neuropathy
- Home meds also include moderate intensity statin for vascular risk reduction
- No known history of associated retinopathy or nephropathy
- Continue with ISS and Accu-Cheks while inpatient
#Hypotension
- Unclear etiology though question if associated with hyperthyroid state as above
- Home medications include midodrine 2.5 mg 3 times daily
- Continue home meds for now, midodrine as tolerated
#3 nodules identified measuring up to 2.8 mm.
-f/u outpt
#Former tobacco use
#Chronic pain on oxycodone
Diet: Diabetic, sodium restricted
Thromboprophylaxis: SQ Lovenox
CODE STATUS: Full code
Disposition: PT consulted
Anticipated Discharge: 24 - 48 hours
Subjective/Interval History
-
Date of Service: January 04, 2025
Weight is down
Objective Data
-
Labs:
Laboratory Results
01/04/25
08:07
WBC 3.3 L
Hgb 8.9 L
Hct 27.6 L
Plt Count 227
Sodium 134 L
Potassium 3.8
Chloride 98
Carbon Dioxide 35 H
BUN 13
Creatinine 1.0
Glucose 103 H
Calcium 8.8
Total Bilirubin 1.0
AST 47
ALT 30
Alkaline Phosphatase 94
Vital Signs:
Vital Signs
Temp Pulse Resp BP Pulse Ox
97.6 F 96 20 96/66 94
01/04/25 08:07 01/04/25 08:07 01/04/25 08:07 01/04/25 08:07 01/04/25 08:07
I&O
01/03/25 01/04/25 01/05/25
06:59 06:59 06:59
Intake Total 1200 / 1200 1320 / 1320
Output Total 2950 / 2950 1850 / 1850
Balance -1750 / -1750 -530 / -530
Review of Systems
-
History Source: Patient
All other systems: Not reviewed unless documented
Data Reviewed
-
Ultrasound: Report Reviewed by me
Labs: Labs Reviewed by me
[2025-01-04 16:07] VITALS: BP 130/73
[2025-01-04 17:18] LABS: Glucose - Point of Care 139 mg/dl (70-99)
[2025-01-04] MEDS: FOLVITE 1 MG PO (17:25)
[2025-01-04 19:00] VITALS: BP 150/104
[2025-01-04 20:48] LABS: Glucose - Point of Care 156 mg/dl (70-99)
[2025-01-04 23:00] VITALS: BP 123/70
[2025-01-05 06:00] VITALS: BMI 38.9
[2025-01-05] MEDS: SYNTHROID 25 MCG PO (06:05)
[2025-01-05 07:30] VITALS: BP 89/50
[2025-01-05] MEDS: FARXIGA 10 MG PO (07:41)
[2025-01-05] MEDS: NEURONTIN 800 MG PO ×2 (07:42→20:05)
[2025-01-05] MEDS: SENOKOT-S 1 TABLET PO ×2 (07:42→20:07)
[2025-01-05] MEDS: ROXICODONE 5 MG PO ×2 (07:42→20:05)
[2025-01-05] MEDS: LOVENOX 40 MG SC ×2 (07:43→20:05)
[2025-01-05] MEDS: LIPITOR 10 MG PO (07:43)
[2025-01-05] MEDS: TOPROL XL PO (07:46)
[2025-01-05] MEDS: VITAMIN B1 100 MG PO (07:49)
[2025-01-05] MEDS: FOLVITE 2 MG PO ×2 (07:49→11:43)
[2025-01-05] MEDS: LASIX IV (07:52)
[2025-01-05 07:57] LABS: Glucose - Point of Care 120 mg/dl (70-99)
[2025-01-05] MEDS: NOVOLOG FLEXPEN-LOW RESISTANCE SC ×3 (07:57→16:43)
[2025-01-05 09:11] VITALS: BP 99/52
[2025-01-05 10:14] LABS: Hematocrit 28.9 % (39.0-52.0); Hemoglobin 9.2 g/dL (13.0-18.0); Mean Corp Hgb Conc. 31.8 g/dL (33.0-37.0); Mean Corpuscular Volume 110.7 fL (80.0-94.0); Platelet Count 242 10^3/uL (130-400); Red Cell Dist. Width 18.1 % (11.5-14.5)
[2025-01-05 10:37] LABS: ALT (SGPT) 31 U/L (0-50); AST (SGOT) 46 U/L (17-59); Albumin 3.4 g/dl (3.5-5.0); Alkaline Phosphatase 105 U/L (38-126); Blood Urea Nitrogen 14 mg/dl (9-20); Calcium 8.8 mg/dl (8.4-10.2); Carbon Dioxide 35 mmol/L (22-30); Chloride 97 mmol/L (98-107); Estimated Creatinine Clearance 102 ml/min; Glucose 156 mg/dl (70-99); Potassium 3.6 mmol/L (3.5-5.1); Sodium 136 mmol/L (135-145); Total Protein 6.8 g/dl (6.3-8.2); eGFR > 60.00
--- NOTE | 2025-01-05 11:21 | W.PN.CARDCBS ---
Today's Communication / Plan
-
Difficult examination but will continue IV Lasix as weight continues to decrease with stable renal function
Impression / Plan
-
PCP: Maite Long PA-C
Cardiology: Dr. Gaitan
Impression:
Admitted with SOB and acute on chronic HF 12/27/2024
Acute on chronic HFpEF
Chronic anemia
B/L LE edema
RBBB
FLORENCIA
HTN
HLD
OA s/p L TKA
s/p laminectomy and spinal fusion
Former smoker/ETOH use disorder
Recent falls with rib fractures of L 4th, 5th, 6th ribs
Adenopathy and splenomegaly by CTAP 12/12/24
ECHO 12/17/24: EF 67%, aortic sclerosis
Plan:
Overall weight is down 22 lbs with a weight of 294 lbs on 01/05/2025. He lost 3 more pounds in the past 24 hours on 120 mg IV twice daily Lasix
He reports his weight on last discharge was 306 pounds so he appears to be below dry weight
Will continue IV Lasix as renal function remains stable
Patient is not chronically on SELINA/ARB/ARNI/aldosterone antagonist due to hypotension
Patient is chronically on midodrine 2.5 mg TID due to hypotension which makes it difficult to uptitrate GDMT
Patient was taking Jardiance 25 mg daily prior to admission and this was changed to Farxiga 10 mg daily due to formulary reasons at time of admission, patient should resume his usual dose of Jardiance when he is discharged.
Patient suspected to have FLORENCIA based on body habitus, CPAP was added this admission but patient has been removing at night.
Progress Note - Clinical Statistics Manager
Subjective
Date of Service: January 05, 2025
No chest pain or shortness of breath
Objective
Labs:
01/05/25 09:02
01/05/25 09:02
Labs
Hgb 9.2 g/dL (13.0-18.0) L 01/05/25 09:02
Hct 28.9 % (39.0-52.0) L 01/05/25 09:02
Plt Count 242 10^3/uL (130-400) 01/05/25 09:02
Sodium 136 mmol/L (135-145) 01/05/25 09:02
Potassium 3.6 mmol/L (3.5-5.1) 01/05/25 09:02
BUN 14 mg/dl (9-20) 01/05/25 09:02
Creatinine 1.1 mg/dL (0.7-1.3) 01/05/25 09:02
Glucose 156 mg/dl (70-99) H 01/05/25 09:02
Vital Signs and I&O:
Vital Signs
Temp Pulse Resp BP Pulse Ox
97.9 F 101 18 99/52 97
01/05/25 07:30 01/05/25 09:11 01/05/25 07:30 01/05/25 09:11 01/05/25 07:30
Vital Signs
Temp Pulse Resp BP Pulse Ox
97.9 F 101 18 99/52 97
01/05/25 07:30 01/05/25 09:11 01/05/25 07:30 01/05/25 09:11 01/05/25 07:30
Intake & Output
01/03/25 01/04/25 01/05/25 01/06/25
06:59 06:59 06:59 06:59
Intake Total 1200 / 1200 1320 / 1320 1430 / 1430
Output Total 2950 / 2950 1850 / 1850 3950 / 3950
Balance -1750 / -1750 -530 / -530 -2520 / -2520
Physical Exam
Physical Exam
General: Well developed, well nourished in NAD.
Neck: Supple, no JVD, HJR, carotids +2 B/L, no bruits bilaterally.
Heart: Non displaced PMI, RRR, no murmurs, No S3, S4, no rubs.
Lungs: Scattered rhonchi at the bases
Extremities: No clubbing, cyanosis or edema bilaterally.
Neuro: Grossly nonfocal, awake, alert and oriented x3.
[2025-01-05] MEDS: LASIX 120 MG IV ×2 (11:39→16:27)
[2025-01-05] MEDS: TOPROL XL 50 MG PO (11:42)
[2025-01-05 11:56] LABS: Glucose - Point of Care 138 mg/dl (70-99)
--- NOTE | 2025-01-05 12:03 | W.PN.HOSP.TC ---
Today's Communication/Plan
-
Continue IV Lasix, monitor weights, BMP
Assessment / Plan
Assessment / Plan
#Decompensated HFpEF
#FLORENCIA not on CPAP
#Chronic venous insufficiency
- Last echo with preserved LVEF and normal RV size; noncompliant with CPAP
- Home regimen includes Lasix 40 mg daily, SGLT2i for GDMT; also on midodrine 3 times daily for hypotension
- Suspect FLORENCIA without use of CPAP is contributing to decompensation, with increased afterload effect
- Was started on IV Lasix 40 mg twice daily; clinically improved though I's and O's and weights inaccurate
- Warm and wet phenotype, has been stable on room air while awake
Plan
- Continue Lasix to 120 mg twice daily, trend BMP + I's and O's + daily weight
- Increased metoprolol XL to 50 mg daily due to tachycardia
- Plan OP sleep study and CPAP, nocturnal O2 PRN here
- Monitor SpO2 with goal > 90%, continue telemetry
- Compression sleeves for CVI
- Cardiology on board
#Hypokalemia
-monitor and repletion
#Macrocytic anemia
#Folate deficiency
#Chronic alcoholism
- Hemoglobin baseline near 9, MCV near 115
- Has known folate deficiency on previous hospital stay due to alcoholism
- Continue with home thiamine and folate supplements, trend CBC
- MSAS protocol for withdrawal
#Hyponatremia
� Mild
� Continue to monitor
#Hypothyroidism
- Was on 12.5 mcg of levothyroxine, TSH here 34, increased to 25 mcg
- Will continue to monitor for signs or symptoms of hypothyroidism
- Will need to follow-up OP for repeat TSH, thyroid US, anti-TPO antibody
#NIDDM with neuropathy
#HLD
- Home regimen includes SGLT2 inhibitor for diabetes, gabapentin for neuropathy
- Home meds also include moderate intensity statin for vascular risk reduction
- No known history of associated retinopathy or nephropathy
- Continue with ISS and Accu-Cheks while inpatient
#Hypotension
- Unclear etiology though question if associated with hyperthyroid state as above
- Home medications include midodrine 2.5 mg 3 times daily
- Continue home meds for now, midodrine as tolerated
#3 nodules identified measuring up to 2.8 mm.
-f/u outpt
#Former tobacco use
#Chronic pain on oxycodone
Diet: Diabetic, sodium restricted
Thromboprophylaxis: SQ Lovenox
CODE STATUS: Full code
Disposition: PT consulted
Anticipated Discharge: 24 - 48 hours
Subjective/Interval History
-
Date of Service: January 05, 2025
No acute events overnight
Objective Data
-
Labs:
Laboratory Results
01/05/25
09:02
WBC 3.6 L
Hgb 9.2 L
Hct 28.9 L
Plt Count 242
Sodium 136
Potassium 3.6
Chloride 97 L
Carbon Dioxide 35 H
BUN 14
Creatinine 1.1
Glucose 156 H
Calcium 8.8
Total Bilirubin 1.0
AST 46
ALT 31
Alkaline Phosphatase 105
Vital Signs:
Vital Signs
Temp Pulse Resp BP Pulse Ox
97.9 F 101 18 99/52 97
01/05/25 07:30 01/05/25 09:11 01/05/25 07:30 01/05/25 09:11 01/05/25 07:30
I&O
01/04/25 01/05/25 01/06/25
06:59 06:59 06:59
Intake Total 1320 / 1320 1430 / 1430
Output Total 1850 / 1850 3950 / 3950
Balance -530 / -530 -2520 / -2520
Review of Systems
-
History Source: Patient
All other systems: Not reviewed unless documented
Physical Exam
-
General: Well Developed, No Apparent Distress and Morbidly Obese
HEENT: Normocephalic, Atraumatic, Moist Mucous Membranes and Anicteric
Respiratory: Non Labored Respirations and Decreased Breath Sounds; Negative Wheezes, Rales, Rhonchi or Accessory Resp Muscle Use
Cardiac: Regular Rhythm, S1/S2 and Tachycardic; Negative Murmur, Rub or Gallop
GI: Soft, Nontender, Nondistended and Normal Bowel Sounds
Musculoskeletal: No Clubbing, No Cyanosis and No Edema
Skin: Warm and Dry; Negative Rash
Neuro: AO x 3, Nonfocal/Grossly Intact and Central Nerve's Intact
Psych: Calm
Data Reviewed
-
Ultrasound: Report Reviewed by me
Labs: Labs Reviewed by me
[2025-01-05 15:57] VITALS: BP 121/58; PULSE 57; O2SAT 99
[2025-01-05 16:00] VITALS: BP 105/70
[2025-01-05 16:42] LABS: Glucose - Point of Care 117 mg/dl (70-99)
[2025-01-05] MEDS: FOLVITE 1 MG PO (17:13)
[2025-01-05 22:15] LABS: Glucose - Point of Care 121 mg/dl (70-99)
[2025-01-05 23:00] VITALS: BP 93/59
[2025-01-06 05:41] LABS: Hematocrit 26.8 % (39.0-52.0); Hemoglobin 8.7 g/dL (13.0-18.0); Mean Corp Hgb Conc. 32.5 g/dL (33.0-37.0); Mean Corpuscular Volume 109.4 fL (80.0-94.0); Platelet Count 200 10^3/uL (130-400); Red Cell Dist. Width 18.1 % (11.5-14.5)
[2025-01-06 06:00] VITALS: BMI 38.8
[2025-01-06 06:01] LABS: Alkaline Phosphatase 99 U/L (38-126); Blood Urea Nitrogen 15 mg/dl (9-20); Carbon Dioxide 34 mmol/L (22-30); Chloride 98 mmol/L (98-107); Estimated Creatinine Clearance 102 ml/min; Glucose 110 mg/dl (70-99); Potassium 3.0 mmol/L (3.5-5.1); Sodium 132 mmol/L (135-145); eGFR > 60.00
[2025-01-06 06:02] LABS: ALT (SGPT) 31 U/L (0-50); AST (SGOT) 41 U/L (17-59); Albumin 3.1 g/dl (3.5-5.0); Calcium 8.7 mg/dl (8.4-10.2); Total Protein 6.5 g/dl (6.3-8.2)
[2025-01-06] MEDS: SYNTHROID 25 MCG PO (07:28)
[2025-01-06 07:29] VITALS: BP 111/71
--- NOTE | 2025-01-06 07:47 | W.PN.HOSP.TC ---
Today's Communication/Plan
-
diuresis per cardio
monitor weight, I's and O's
Labs in the AM
replete K
Assessment / Plan
Assessment / Plan
#Decompensated HFpEF
#FLORENCIA not on CPAP
#Chronic venous insufficiency
- Last echo with preserved LVEF and normal RV size; noncompliant with CPAP
- Home regimen includes Lasix 40 mg daily, SGLT2i for GDMT; also on midodrine 3 times daily for hypotension
- Suspect FLORENCIA without use of CPAP is contributing to decompensation, with increased afterload effect
- Warm and wet phenotype, has been stable on room air while awake
- Continue Lasix to 120 mg twice daily, trend BMP + I's and O's + daily weight ; weight continues to decrease with stable renal function
- Increased metoprolol XL to 50 mg daily due to tachycardia
- Plan OP sleep study and CPAP, nocturnal O2 PRN here
- Monitor SpO2 with goal > 90%, continue telemetry
- Compression sleeves for CVI
- Cardiology on board
#Hypokalemia
-monitor and repletion
#Macrocytic anemia
#Folate deficiency
#Chronic alcoholism
- Hemoglobin 8.7 baseline 9
- Has known folate deficiency on previous hospital stay due to alcoholism
- Continue with home thiamine and folate supplements, trend CBC
- MSAS protocol for withdrawal
#Hyponatremia
� Mild
� Continue to monitor
#Hypothyroidism
- Was on 12.5 mcg of levothyroxine, TSH here 34, increased to 25 mcg
- Will continue to monitor for signs or symptoms of hypothyroidism
- Will need to follow-up OP for repeat TSH, thyroid US, anti-TPO antibody
#NIDDM with neuropathy
#HLD
- Home regimen includes SGLT2 inhibitor for diabetes, gabapentin for neuropathy
- Home meds also include moderate intensity statin for vascular risk reduction
- No known history of associated retinopathy or nephropathy
- Continue with ISS and Accu-Cheks while inpatient
#Hypotension
- Unclear etiology though question if associated with hyperthyroid state as above
- Home medications include midodrine 2.5 mg 3 times daily
- Continue home meds for now, midodrine as tolerated
#3 nodules identified measuring up to 2.8 mm.
-f/u outpt with pcp and pulm
#Former tobacco use
#Chronic pain on oxycodone
Diet: Diabetic, sodium restricted
Thromboprophylaxis: SQ Lovenox
CODE STATUS: Full code
Disposition: PT consulted
Anticipated Discharge: 24 - 48 hours
Subjective/Interval History
-
Date of Service: January 06, 2025
afvss. Offers no new complaints. States that he generally feels tired with exertion.
Objective Data
-
Labs:
Laboratory Results
01/06/25
05:11
WBC 3.4 L
Hgb 8.7 L
Hct 26.8 L
Plt Count 200
Sodium 132 L
Potassium 3.0 L
Chloride 98
Carbon Dioxide 34 H
BUN 15
Creatinine 1.1
Glucose 110 H
Calcium 8.7
Total Bilirubin 1.0
AST 41
ALT 31
Alkaline Phosphatase 99
Vital Signs:
Vital Signs
Temp Pulse Resp BP Pulse Ox
97.7 F 96 18 111/71 95
01/06/25 07:29 01/06/25 07:29 01/06/25 07:29 01/06/25 07:29 01/06/25 07:29
I&O
01/05/25 01/06/25 01/07/25
06:59 06:59 06:59
Intake Total 1430 / 1430 840 / 840
Output Total 3950 / 3950 550 / 550
Balance -2520 / -2520 290 / 290
Review of Systems
-
History Source: Patient
All other systems: Not reviewed unless documented
Physical Exam
-
General: Well Developed, No Apparent Distress and Morbidly Obese
HEENT: Normocephalic, Atraumatic, Moist Mucous Membranes and Anicteric
Respiratory: Non Labored Respirations and Decreased Breath Sounds; Negative Wheezes, Rales, Rhonchi or Accessory Resp Muscle Use
Cardiac: Regular Rhythm, S1/S2 and Tachycardic; Negative Murmur, Rub or Gallop
GI: Soft, Nontender, Nondistended and Normal Bowel Sounds
Musculoskeletal: No Clubbing, No Cyanosis and No Edema
Skin: Warm and Dry; Negative Rash
Neuro: AO x 3, Nonfocal/Grossly Intact and Central Nerve's Intact
Psych: Calm
Data Reviewed
-
Labs: Labs Reviewed by me, Discussed with Physician and Discussed with Patient
[2025-01-06 07:54] LABS: Glucose - Point of Care 118 mg/dl (70-99)
[2025-01-06] MEDS: VITAMIN B1 100 MG PO (08:27)
[2025-01-06] MEDS: LOVENOX 40 MG SC ×2 (08:27→19:59)
[2025-01-06] MEDS: LASIX 120 MG IV ×2 (08:29→15:59)
[2025-01-06] MEDS: FOLVITE 2 MG PO ×2 (08:30→10:51)
[2025-01-06] MEDS: ROXICODONE 5 MG PO ×2 (08:31→20:00)
[2025-01-06] MEDS: LIPITOR 10 MG PO (08:31)
[2025-01-06] MEDS: FARXIGA 10 MG PO (08:31)
[2025-01-06] MEDS: SENOKOT-S 1 TABLET PO ×2 (08:31→20:00)
[2025-01-06] MEDS: TOPROL XL 50 MG PO (08:31)
[2025-01-06] MEDS: NOVOLOG FLEXPEN-LOW RESISTANCE SC ×2 (08:32→12:17)
[2025-01-06] MEDS: NEURONTIN 800 MG PO ×2 (08:32→19:59)
[2025-01-06] MEDS: KCL 40 MEQ PO ×3 (10:50→21:57)
[2025-01-06] MEDS: ALDACTONE 12.5 MG PO (10:51)
[2025-01-06 12:14] LABS: Glucose - Point of Care 149 mg/dl (70-99)
--- NOTE | 2025-01-06 14:56 | W.PN.CARDCBS ---
Addendum entered and electronically signed by Rolan Mendez MD 01/06/25 17:52:
59-year-old man admitted with acute on chronic HFpEF.
PMH: Morbid obesity, obstructive sleep apnea, hypertension, hyperlipidemia sleep apnea, right bundle branch block
PSH: Laminectomy lumbar fusion, left total knee arthroplasty SH: Single, lives alone, daily alcohol
Current meds: Atorvastatin 10, dapagliflozin 10, folic acid, Neurontin, levothyroxine, oxycodone, metoprolol ER 50 mg a day, folic acid, midodrine 5 3 times daily, furosemide 120 IV twice daily
111/71, pulse 96, respiratory rate 18, afebrile, weight 133.4 kg, unchanged admission weight was 149.2 kg, head neck exam unremarkable, lungs are clear, regular rate and rhythm, abdomen obese, 3+ edema, neck veins difficult to assess
Hemoglobin 8.7, MCV 109, sodium 132, potassium 3.0, BUN and creatinine are 15 and 1.1
Echo 12/2024: EF 67% aortic sclerosis
Impression:
Acute on chronic HFpEF,
Right bundle branch block
Obstructive sleep apnea
Hypertension
Hyperlipidemia
At least moderate alcohol use
Left total knee arthroplasty
Laminectomy
Recent multiple risk factors
Adenopathy/splenomegaly
Plan:
He still volume overloaded. Renal function remains reasonable. Continue IV Lasix. Supplement potassium.
He is on Jardiance 25 mg a day as an outpatient. This should be continued.
For HFpEF, would add spironolactone 12.5 mg daily, watching BP. May need to cut back on metoprolol.
Alcohol intake is a substantial issue and I urged him to stop.
Original Note:
Today's Communication / Plan
-
Ongoing diuresis
New to spironolactone
Impression / Plan
-
PCP: Maite Long PA-C
Cardiology: Dr. Gaitan
Impression:
Admitted with SOB and acute on chronic HF 12/27/2024
Acute on chronic HFpEF
Chronic anemia
B/L LE edema
RBBB
FLORENCIA
HTN
HLD
OA s/p L TKA
s/p laminectomy and spinal fusion
Former smoker/ETOH use disorder
Recent falls with rib fractures of L 4th, 5th, 6th ribs
Adenopathy and splenomegaly by CTAP 12/12/24
ECHO 12/17/24: EF 67%, aortic sclerosis
Plan:
-Overall weight is down 22 lbs with a weight of 294 lbs on 01/06/2025. Dry weight unknown.
-Lasix increased to 120 mg IV BID on 01/03/2025. Patient was taking Lasix 40 mg PO daily prior to admission.
-EF preserved to 67% by echo 12/17/2024
-Outpatient dose of Toprol-XL increased to 50 mg daily this admission
-Patient is not chronically on SELINA/ARB/ARNI/aldosterone antagonist due to hypotension
-Patient is chronically on midodrine 2.5 mg TID due to hypotension which makes it difficult to uptitrate GDMT
-Spironolactone 12.5 mg daily added 01/06/2025.
-Follow BMP, patient was hypokalemic with potassium of 3 on my review of the labs 01/06/2025
-Patient was taking Jardiance 25 mg daily prior to admission and this was changed to Farxiga 10 mg daily due to formulary reasons at time of admission, patient should resume his usual dose of Jardiance when he is discharged.
-Patient has EtOH use disorder and chronic macrocytic anemia. Alcohol avoidance was suggested.
-Patient suspected to have FLORENCIA based on body habitus, CPAP was added this admission but patient has been removing at night.
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
Subjective
Date of Service: January 06, 2025
He thinks he is doing better overall, but not yet back to baseline
Objective
Labs:
01/06/25 05:11
01/06/25 05:11
Labs
Hgb 8.7 g/dL (13.0-18.0) L 01/06/25 05:11
Hct 26.8 % (39.0-52.0) L 01/06/25 05:11
Plt Count 200 10^3/uL (130-400) 01/06/25 05:11
Sodium 132 mmol/L (135-145) L 01/06/25 05:11
Potassium 3.0 mmol/L (3.5-5.1) L 01/06/25 05:11
BUN 15 mg/dl (9-20) 01/06/25 05:11
Creatinine 1.1 mg/dL (0.7-1.3) 01/06/25 05:11
Glucose 110 mg/dl (70-99) H 01/06/25 05:11
Vital Signs and I&O:
Vital Signs
Temp Pulse Resp BP Pulse Ox
97.7 F 96 18 111/71 95
01/06/25 07:29 01/06/25 07:29 01/06/25 07:29 01/06/25 07:29 01/06/25 07:29
Vital Signs
Temp Pulse Resp BP Pulse Ox
97.7 F 96 18 111/71 95
01/06/25 07:29 01/06/25 07:29 01/06/25 07:29 01/06/25 07:29 01/06/25 07:29
Intake & Output
01/04/25 01/05/25 01/06/25 01/07/25
06:59 06:59 06:59 06:59
Intake Total 1320 / 1320 1430 / 1430 840 / 840
Output Total 1850 / 1850 3950 / 3950 550 / 550
Balance -530 / -530 -2520 / -2520 290 / 290
Physical Exam
Physical Exam
GEN: NAD, AAO x 3
LUNGS: RA, no audible wheeze
CV: SR on telemetry
[2025-01-06 15:00] VITALS: BP 92/50
--- NOTE | 2025-01-06 16:20 | CM ---
CM following for discharge planning; today Jaylon was able to walk 100 feet with no device and supervision.
Pt is current with [facility] - anticipate resumption of [facility] at discharge.
[2025-01-06 17:11] LABS: Glucose - Point of Care 209 mg/dl (70-99)
[2025-01-06] MEDS: FOLVITE 1 MG PO (17:43)
[2025-01-06] MEDS: NOVOLOG FLEXPEN-LOW RESISTANCE 2 UNITS SC (17:44)
[2025-01-06 21:13] LABS: Glucose - Point of Care 123 mg/dl (70-99)
[2025-01-06 22:55] VITALS: BP 112/59
[2025-01-07 06:00] VITALS: BMI 38.5
[2025-01-07] MEDS: SYNTHROID 25 MCG PO (06:07)
[2025-01-07 06:32] LABS: Hematocrit 25.9 % (39.0-52.0); Hemoglobin 8.4 g/dL (13.0-18.0); Mean Corp Hgb Conc. 32.4 g/dL (33.0-37.0); Mean Corpuscular Volume 108.4 fL (80.0-94.0); Platelet Count 210 10^3/uL (130-400); Red Cell Dist. Width 18.0 % (11.5-14.5)
[2025-01-07 07:00] VITALS: BP 103/68
[2025-01-07 07:15] LABS: ALT (SGPT) 30 U/L (0-50); AST (SGOT) 40 U/L (17-59); Albumin 3.0 g/dl (3.5-5.0); Alkaline Phosphatase 100 U/L (38-126); Blood Urea Nitrogen 17 mg/dl (9-20); Calcium 8.9 mg/dl (8.4-10.2); Carbon Dioxide 34 mmol/L (22-30); Chloride 100 mmol/L (98-107); Estimated Creatinine Clearance 86 ml/min; Glucose 104 mg/dl (70-99); Potassium 3.7 mmol/L (3.5-5.1); Sodium 135 mmol/L (135-145); Total Protein 6.2 g/dl (6.3-8.2); eGFR > 60.00
[2025-01-07] MEDS: FOLVITE 2 MG PO ×2 (07:54→10:30)
[2025-01-07] MEDS: LIPITOR 10 MG PO (07:54)
[2025-01-07] MEDS: FARXIGA 10 MG PO (07:54)
[2025-01-07] MEDS: NEURONTIN 800 MG PO ×2 (07:54→19:40)
[2025-01-07] MEDS: SENOKOT-S 1 TABLET PO ×2 (07:54→19:40)
[2025-01-07] MEDS: KCL 40 MEQ PO ×2 (07:54→08:56)
[2025-01-07] MEDS: LASIX 120 MG IV ×2 (07:55→15:58)
[2025-01-07] MEDS: TOPROL XL 50 MG PO (07:55)
[2025-01-07] MEDS: ALDACTONE 12.5 MG PO (07:55)
[2025-01-07] MEDS: LOVENOX 40 MG SC ×2 (07:57→19:39)
[2025-01-07] MEDS: VITAMIN B1 100 MG PO (07:59)
[2025-01-07] MEDS: ROXICODONE 5 MG PO ×2 (08:00→19:40)
[2025-01-07 08:07] LABS: Glucose - Point of Care 127 mg/dl (70-99)
[2025-01-07] MEDS: NOVOLOG FLEXPEN-LOW RESISTANCE SC ×2 (08:21→17:16)
[2025-01-07] MEDS: TOPROL XL 25 MG PO (10:26)
[2025-01-07 11:29] LABS: Glucose - Point of Care 185 mg/dl (70-99)
--- NOTE | 2025-01-07 11:39 | W.PN.HOSP.TC ---
Today's Communication/Plan
-
Transition to oral diuretics within next 24 hours
Start as needed nebulizers
Outpatient PFTs, sleep study
Continue venous stockings as tolerated
Assessment / Plan
Assessment / Plan
#Decompensated HFpEF
#FLORENCIA not on CPAP
#Chronic venous insufficiency
- Last echo with preserved LVEF and normal RV size; noncompliant with CPAP
- Home regimen includes Lasix 40 mg daily, SGLT2i for GDMT; also on midodrine 3 times daily for hypotension
- Suspect FLORENCIA without use of CPAP is contributing to decompensation, with increased afterload effect
- Warm and wet phenotype, has been stable on room air while awake;
- Continue Lasix to 120 mg twice daily, trend BMP + I's and O's + daily weight
- Continue GDMT with SGLT2i, MRA; BP goal normotension
- Increased metoprolol XL to 75 mg daily due to HR in 90s
- Plan OP sleep study and CPAP, nocturnal O2 PRN here
- Monitor SpO2 with goal > 90%, continue telemetry
- Compression sleeves for CVI
- Cardiology on board
#Hypokalemia
- Trend BMP and magnesium level, replete as needed
#Wheezing
#Former tobacco use
- Has [id number] smoking history; complain of some wheezes today which do seem present
- No known formal diagnosis of COPD though obviously at high risk with smoking history
- Will start as needed DuoNebs here; will need to follow-up with pulm as OP for PFTs
- Plan for standing LABA/LAMA at discharge, likely GOLD A disease if present
#Macrocytic anemia
#Folate deficiency
#Chronic alcoholism
- Hemoglobin 8.7 baseline 9
- Has known folate deficiency on previous hospital stay due to alcoholism
- Continue with home thiamine and folate supplements, trend CBC
- MSAS protocol for withdrawal
#Hyponatremia
- Mild
- Continue to monitor
#Hypothyroidism
- Was on 12.5 mcg of levothyroxine, TSH here 34, increased to 25 mcg
- Will continue to monitor for signs or symptoms of hypothyroidism
- Will need to follow-up OP for repeat TSH, thyroid US, anti-TPO antibody
#NIDDM with neuropathy
#HLD
- Home regimen includes SGLT2 inhibitor for diabetes, gabapentin for neuropathy
- Home meds also include moderate intensity statin for vascular risk reduction
- No known history of associated retinopathy or nephropathy
- Continue with ISS and Accu-Cheks while inpatient
#Hypotension
- Unclear etiology though question if associated with hyperthyroid state as above
- Home medications include midodrine 2.5 mg 3 times daily
- Continue home meds for now, midodrine as tolerated
#3 nodules identified measuring up to 2.8 mm.
- f/u outpt with pcp and pulm
#Chronic pain on oxycodone
Diet: Diabetic, sodium restricted
Thromboprophylaxis: SQ Lovenox
CODE STATUS: Full code
Disposition: Homecare when stable
Anticipated Discharge: Within 24 hours
Subjective/Interval History
-
Date of Service: January 07, 2025
Seen and examined at the bedside. No acute events reported overnight. AFVSS on room air
Weight down 1 kg, creatinine slightly uptrending. Net -2200 mL over last 24 hours
Patient denies any complaints this morning
Objective Data
-
Labs:
Laboratory Results
01/07/25
05:20
WBC 3.3 L
Hgb 8.4 L
Hct 25.9 L
Plt Count 210
Sodium 135
Potassium 3.7
Chloride 100
Carbon Dioxide 34 H
BUN 17
Creatinine 1.3
Glucose 104 H
Calcium 8.9
Total Bilirubin 0.9
AST 40
ALT 30
Alkaline Phosphatase 100
Vital Signs:
Vital Signs
Temp Pulse Resp BP Pulse Ox
97.8 F 88 19 97/54 99
01/07/25 07:00 01/07/25 10:26 01/07/25 07:00 01/07/25 10:26 01/07/25 09:00
I&O
01/06/25 01/07/25 01/08/25
06:59 06:59 06:59
Intake Total 840 / 840 2160 / 2160
Output Total 550 / 550 4600 / 4600
Balance 290 / 290 -2440 / -2440
Review of Systems
-
History Source: Patient
All other systems: Reviewed and negative
Physical Exam
-
General: Well Developed, No Apparent Distress and Obese
HEENT: Normocephalic, Atraumatic, Moist Mucous Membranes and Anicteric
Respiratory: Wheezes and Non Labored Respirations; Negative Accessory Resp Muscle Use
Cardiac: Regular Rhythm, S1/S2 and Other (1+ pitting edema); Negative Murmur, Rub, JVD or Gallop
GI: Soft, Nontender, Nondistended and Normal Bowel Sounds
Musculoskeletal: No Clubbing and No Cyanosis
Skin: Warm and Dry; Negative Rash
Neuro: AO x 3, Nonfocal/Grossly Intact and Central Nerve's Intact; Negative Tremors
Psych: Calm
Data Reviewed
-
Labs: Labs Reviewed by me and Discussed with Patient
[2025-01-07 12:29] VITALS: BP 104/58; PULSE 81
[2025-01-07] MEDS: NOVOLOG FLEXPEN-LOW RESISTANCE 1 UNITS SC (12:48)
[2025-01-07 15:00] VITALS: BP 128/76
--- NOTE | 2025-01-07 15:28 | W.PN.CARDCBS ---
Addendum entered and electronically signed by Rolan Mendez MD 01/07/25 16:43:
59-year-old man admitted with acute on chronic HFpEF. Feeling better, still feels that he is volume overloaded
PMH: Morbid obesity, obstructive sleep apnea, hypertension, hyperlipidemia sleep apnea, right bundle branch block
PSH: Laminectomy lumbar fusion, left total knee arthroplasty SH: Single, lives alone, daily alcohol
Current meds: Atorvastatin 10, dapagliflozin 10, folic acid, Neurontin, levothyroxine, oxycodone, metoprolol ER 50 mg a day, folic acid, midodrine 5 3 times daily, furosemide 120 IV twice daily, potassium 40 mEq daily, spironolactone 12.5 mg daily
103/68, pulse 92, sats 99%, lowest BP 92/50 yesterday, weight is 132.2 kg, down 1.2 kg, weight was 143.1 kg at admission, intake output -2.5 L, head neck exam unremarkable, scattered wheezes, regular rate and rhythm, still 2+ edema,
Hemoglobin 8.4, had been 8.7, MCV is 108, potassium is 3.7, BUN and creatinine are 17 and 1.3, no recent proBNP
Impression:
Acute on chronic HFpEF,
Right bundle branch block
Obstructive sleep apnea
Hypertension
Hyperlipidemia
At least moderate alcohol use
Left total knee arthroplasty
Laminectomy
Recent multiple risk factors
Adenopathy/splenomegaly
Other diagnoses as below. Findings, assessments, recommendations reviewed in detail and agree, unless otherwise specified
Plan:
He continues to slowly improve with regards to acute on chronic HFpEF.
Hemoglobin continues to drift down we will need to watch carefully, ascertain there is no ongoing blood loss.
Still above dry weight, would continue IV Lasix. Creatinine has risen from 1.1-1.3, possibly transition to oral in 24 hours. Also, patient now on spironolactone, potassium is better, will need to continue to follow renal function. Also on SGLT2
antagonist.
States he is going to be abstinent from alcohol.
Okay to begin discharge planning. At present, he is down over 20 pounds compared to admission.
Original Note:
Today's Communication / Plan
-
Cont Lasix 120 mg IV BID
Impression / Plan
-
PCP: Maite Long PA-C
Cardiology: Dr. Gaitan
Impression:
Admitted with SOB and acute on chronic HF 12/27/2024
Acute on chronic HFpEF
Chronic anemia
B/L LE edema
RBBB
FLORENCIA
HTN
HLD
OA s/p L TKA
s/p laminectomy and spinal fusion
Former smoker/ETOH use disorder
Recent falls with rib fractures of L 4th, 5th, 6th ribs
Adenopathy and splenomegaly by CTAP 12/12/24
ECHO 12/17/24: EF 67%, aortic sclerosis
Plan:
-Weight is down another 3 lbs overnight with Lasix 120 mg IV BID. Dry weight unknown. Patient has diuresed 25 lbs so far this admission.
-Patient was taking Lasix 40 mg PO daily prior to admission and suspect he will need to be discharged to home on a higher dose.
-EF preserved to 67% by echo 12/17/2024
-Outpatient dose of Toprol-XL increased to 50 mg daily this admission
-Patient is not chronically on SELINA/ARB/ARNI/aldosterone antagonist due to hypotension
-Patient is chronically on midodrine 2.5 mg TID due to hypotension which makes it difficult to uptitrate GDMT
-Spironolactone 12.5 mg daily added 01/06/2025. Potassium is 3.7 on my review of labs 01/07/2025. Cre increased a bit from 1.1 to 1.3 on 01/07/2025
-Patient was taking Jardiance 25 mg daily prior to admission and this was changed to Farxiga 10 mg daily due to formulary reasons at time of admission, patient should resume his usual dose of Jardiance when he is discharged.
-Patient has EtOH use disorder and chronic macrocytic anemia. Alcohol avoidance was suggested.
-Patient suspected to have FLORENCIA based on body habitus, CPAP was added this admission but patient has been removing at night.
-No indication for rehab and plan is for eventually home with [facility]
Progress Note - Middleware Engineer
Subjective
Date of Service: January 07, 2025
He feels well, he thinks he is slowly improving
Objective
Labs:
01/07/25 05:20
01/07/25 05:20
Labs
Hgb 8.4 g/dL (13.0-18.0) L 01/07/25 05:20
Hct 25.9 % (39.0-52.0) L 01/07/25 05:20
Plt Count 210 10^3/uL (130-400) 01/07/25 05:20
Sodium 135 mmol/L (135-145) 01/07/25 05:20
Potassium 3.7 mmol/L (3.5-5.1) 01/07/25 05:20
BUN 17 mg/dl (9-20) 01/07/25 05:20
Creatinine 1.3 mg/dL (0.7-1.3) 01/07/25 05:20
Glucose 104 mg/dl (70-99) H 01/07/25 05:20
Vital Signs and I&O:
Vital Signs
Temp Pulse Resp BP Pulse Ox
98.0 F 86 19 128/76 95
01/07/25 15:00 01/07/25 15:00 01/07/25 15:00 01/07/25 15:00 01/07/25 15:00
Vital Signs
Temp Pulse Resp BP Pulse Ox
98.0 F 86 19 128/76 95
01/07/25 15:00 01/07/25 15:00 01/07/25 15:00 01/07/25 15:00 01/07/25 15:00
Intake & Output
01/05/25 01/06/25 01/07/25 01/08/25
06:59 06:59 06:59 06:59
Intake Total 1430 / 1430 840 / 840 2160 / 2160
Output Total 3950 / 3950 550 / 550 4600 / 4600
Balance -2520 / -2520 290 / 290 -2440 / -2440
Physical Exam
Physical Exam
GEN: NAD, AAO x 3
LUNGS: RA, no audible wheeze
CV: SR on telemetry
[2025-01-07 17:13] LABS: Glucose - Point of Care 117 mg/dl (70-99)
[2025-01-07] MEDS: FOLVITE 1 MG PO (17:16)
[2025-01-07 21:47] LABS: Glucose - Point of Care 151 mg/dl (70-99)
[2025-01-07 22:47] VITALS: BP 116/71
[2025-01-08] MEDS: SYNTHROID 25 MCG PO (05:12)
[2025-01-08 05:34] VITALS: BMI 38.2
[2025-01-08 07:00] VITALS: BP 112/67
[2025-01-08 07:23] LABS: Hematocrit 26.9 % (39.0-52.0); Hemoglobin 8.6 g/dL (13.0-18.0); Mean Corp Hgb Conc. 32.0 g/dL (33.0-37.0); Mean Corpuscular Volume 108.9 fL (80.0-94.0); Nucleated Red Blood Cells % 0 % (-); Platelet Count 204 10^3/uL (130-400); Red Cell Dist. Width 18.0 % (11.5-14.5)
--- NOTE | 2025-01-08 07:36 | W.PN.HOSP.TC ---
Today's Communication/Plan
-
continue current rx plan including iv lasix; likely transition to oral tomorrow
i's and o's
daily weight
Assessment / Plan
Assessment / Plan
#Decompensated HFpEF
#FLORENCIA not on CPAP
#Chronic venous insufficiency
- Last echo with preserved LVEF and normal RV size; noncompliant with CPAP
- Home regimen includes Lasix 40 mg daily, SGLT2i for GDMT; also on midodrine 3 times daily for hypotension
- Suspect FLORENCIA without use of CPAP is contributing to decompensation, with increased afterload effect
- Warm and wet phenotype, has been stable on room air while awake;
- Continue Lasix to 120 mg twice daily, trend BMP + I's and O's + daily weight
- Continue GDMT with SGLT2i, MRA; BP goal normotension
- Increased metoprolol XL to 75 mg daily due to HR in 90s
- Plan OP sleep study and CPAP, nocturnal O2 PRN here
- Monitor SpO2 with goal > 90%, continue telemetry
- Compression sleeves for CVI
- Cardiology on board
- Metoprolol dose was decreased to home regimen
#Hypokalemia
- Resolved
#Wheezing
#Former tobacco use
- Has 60-[id number]-tccs smoking history; complain of some wheezes today which do seem present
- No known formal diagnosis of COPD though obviously at high risk with smoking history
- Continue as needed DuoNebs here; will need to follow-up with pulm as OP for PFTs
- Plan for standing LABA/LAMA at discharge, likely GOLD A disease if present
#Macrocytic anemia
#Folate deficiency
#Chronic alcoholism
- Hemoglobin 8.6 baseline 9
- Has known folate deficiency on previous hospital stay due to alcoholism
- Continue with home thiamine and folate supplements, trend CBC
- MSAS protocol for withdrawal
#Hyponatremia
- Mild
- Continue to monitor
#Hypothyroidism
- Was on 12.5 mcg of levothyroxine, TSH here 34, increased to 25 mcg
- Will continue to monitor for signs or symptoms of hypothyroidism
- Will need to follow-up OP for repeat TSH, thyroid US, anti-TPO antibody
#NIDDM with neuropathy
#HLD
- Home regimen includes SGLT2 inhibitor for diabetes, gabapentin for neuropathy
- Home meds also include moderate intensity statin for vascular risk reduction
- No known history of associated retinopathy or nephropathy
- Continue with ISS and Accu-Cheks while inpatient
#Hypotension
- Unclear etiology though question if associated with hyperthyroid state as above
- Home medications include midodrine 2.5 mg 3 times daily
- Continue home meds for now, midodrine as tolerated
#3 nodules identified measuring up to 2.8 mm.
- f/u outpt with pcp and pulm
#Chronic pain on oxycodone
Diet: Diabetic, sodium restricted
Thromboprophylaxis: SQ Lovenox
CODE STATUS: Full code
Disposition: Homecare when stable
Anticipated Discharge: Within 24 hours
Subjective/Interval History
-
Date of Service: January 08, 2025
AFVSS. Offers no new complaints.
Objective Data
-
Labs:
Laboratory Results
01/08/25
06:57
WBC 3.5 L
Hgb 8.6 L
Hct 26.9 L
Plt Count 204
Sodium Pending
Potassium Pending
Chloride Pending
Carbon Dioxide Pending
BUN Pending
Creatinine Pending
Glucose Pending
Calcium Pending
Vital Signs:
Vital Signs
Temp Pulse Resp BP Pulse Ox
97.9 F 94 17 116/71 100
01/07/25 22:47 01/07/25 22:47 01/07/25 22:47 01/07/25 22:47 01/07/25 22:47
I&O
01/07/25 01/08/25 01/09/25
06:59 06:59 06:59
Intake Total 2160 / 2160 2039
Output Total 4600 / 4600 3700 / 3700
Balance -2440 / -2440 -1660 / -1660
Review of Systems
-
History Source: Patient
All other systems: Reviewed and negative
Physical Exam
-
General: Well Developed, No Apparent Distress and Obese
HEENT: Normocephalic, Atraumatic, Moist Mucous Membranes and Anicteric
Respiratory: Wheezes and Non Labored Respirations; Negative Accessory Resp Muscle Use
Cardiac: Regular Rhythm, S1/S2 and Other (1+ pitting edema); Negative Murmur, Rub, JVD or Gallop
GI: Soft, Nontender, Nondistended and Normal Bowel Sounds
Musculoskeletal: No Clubbing and No Cyanosis
Skin: Warm and Dry; Negative Rash
Neuro: AO x 3, Nonfocal/Grossly Intact and Central Nerve's Intact; Negative Tremors
Psych: Calm
Data Reviewed
-
Labs: Labs Reviewed by me, Discussed with Physician and Discussed with Patient
[2025-01-08 07:39] LABS: Glucose - Point of Care 122 mg/dl (70-99)
[2025-01-08 07:45] LABS: Blood Urea Nitrogen 17 mg/dl (9-20); Calcium 9.2 mg/dl (8.4-10.2); Carbon Dioxide 35 mmol/L (22-30); Chloride 97 mmol/L (98-107); Estimated Creatinine Clearance 93 ml/min; Glucose 113 mg/dl (70-99); Magnesium 2.0 mg/dl (1.6-2.3); Potassium 4.1 mmol/L (3.5-5.1); Sodium 135 mmol/L (135-145); eGFR > 60.00
[2025-01-08] MEDS: SENOKOT-S 1 TABLET PO ×2 (08:10→20:53)
[2025-01-08] MEDS: TOPROL XL 50 MG PO (08:10)
[2025-01-08] MEDS: LIPITOR 10 MG PO (08:10)
[2025-01-08] MEDS: KCL 40 MEQ PO (08:11)
[2025-01-08] MEDS: NEURONTIN 800 MG PO ×2 (08:11→20:53)
[2025-01-08] MEDS: ALDACTONE 12.5 MG PO (08:11)
[2025-01-08] MEDS: FARXIGA 10 MG PO (08:12)
[2025-01-08] MEDS: FOLVITE 2 MG PO ×2 (08:12→12:49)
[2025-01-08] MEDS: TOPROL XL 25 MG PO (08:12)
[2025-01-08] MEDS: LOVENOX 40 MG SC ×2 (08:13→20:53)
[2025-01-08] MEDS: ROXICODONE 5 MG PO ×2 (08:13→20:53)
[2025-01-08] MEDS: LASIX 120 MG IV ×2 (08:14→15:22)
[2025-01-08] MEDS: VITAMIN B1 100 MG PO (08:14)
[2025-01-08] MEDS: NOVOLOG FLEXPEN-LOW RESISTANCE SC ×2 (08:14→16:43)
--- NOTE | 2025-01-08 09:14 | W.PN.CARDCBS ---
Today's Communication / Plan
-
Continue IV Lasix
With ongoing wheezing would recommend decreasing metoprolol back to her home dose. Could also consider substituting calcium channel cecy.
Impression / Plan
-
PCP: Maite Long PA-C
Cardiology: Dr. Gaitan
Impression:
Admitted with SOB and acute on chronic HF 12/27/2024
Acute on chronic HFpEF
Chronic anemia
B/L LE edema
RBBB
FLORENCIA
HTN
HLD
OA s/p L TKA
s/p laminectomy and spinal fusion
Former smoker/ETOH use disorder
Recent falls with rib fractures of L 4th, 5th, 6th ribs
Adenopathy and splenomegaly by CTAP 12/12/24
ECHO 12/17/24: EF 67%, aortic sclerosis
Plan:
-Admitted with acute CHF. EF preserved to 67% by echo 12/17/2024. Dry weight unknown. Patient has diuresed approx 30 lbs so far this admission.
-Weight continues to trend down with Lasix 120 mg IV BID. Would continue this dosing.
-Follow renal function, electrolytes and daily weights
-Patient was taking Lasix 40 mg PO daily prior to admission, but will need to be discharged to home on a higher dose, would favor at least 80mg BID
-Spironolactone 12.5 mg daily added 01/06/2025
-Patient was taking Jardiance 25 mg daily prior to admission and this was changed to Farxiga 10 mg daily due to formulary reasons at time of admission, patient should resume his usual dose of Jardiance when he is discharged.
-Outpatient dose of Toprol-XL increased to 75 mg this admission. With wheezing on exam will decrease back to 25mg daily. Could also consider switching to calcium channel cecy.
-Chronically on midodrine 2.5 mg TID due to hypotension which makes it difficult to uptitrate GDMT
-Patient has EtOH use disorder and chronic macrocytic anemia. Discussed EtOH cessation.
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
Subjective
Date of Service: January 08, 2025
NAOE. No SOB/MA.
Objective
Labs:
01/08/25 06:57
01/08/25 06:57
Labs
Hgb 8.6 g/dL (13.0-18.0) L 01/08/25 06:57
Hct 26.9 % (39.0-52.0) L 01/08/25 06:57
Plt Count 204 10^3/uL (130-400) 01/08/25 06:57
Sodium 135 mmol/L (135-145) 01/08/25 06:57
Potassium 4.1 mmol/L (3.5-5.1) 01/08/25 06:57
BUN 17 mg/dl (9-20) 01/08/25 06:57
Creatinine 1.2 mg/dL (0.7-1.3) 01/08/25 06:57
Glucose 113 mg/dl (70-99) H 01/08/25 06:57
Vital Signs and I&O:
Vital Signs
Temp Pulse Resp BP Pulse Ox
98.3 F 100 17 112/67 94
01/08/25 07:00 01/08/25 08:14 01/08/25 07:00 01/08/25 08:14 01/08/25 07:00
Vital Signs
Temp Pulse Resp BP Pulse Ox
98.3 F 100 17 112/67 94
01/08/25 07:00 01/08/25 08:14 01/08/25 07:00 01/08/25 08:14 01/08/25 07:00
Intake & Output
01/06/25 01/07/25 01/08/25 01/09/25
06:59 06:59 06:59 06:59
Intake Total 840 / 840 2160 / 2160 204 / 204
Output Total 550 / 550 4600 / 4600 3700 / 3700
Balance 290 / 290 -2440 / -2440 -1660 / -1660
Physical Exam
Physical Exam
Gen: NAD, AAOx3
HEENT: NC/AT, sclera anicteric
Neck: No JVD
CV: RRR, NL s1/s2
Lungs: Mild scattered wheezing on RA
Abd: S/ND
Ext: 1+ LE edema with overlying chronic venous stasis changes
Skin: Warm, dry
Neuro: Non-focal
[2025-01-08 11:38] LABS: Glucose - Point of Care 182 mg/dl (70-99)
[2025-01-08] MEDS: DUONEB 3 ML INH (11:53)
[2025-01-08] MEDS: NOVOLOG FLEXPEN-LOW RESISTANCE 1 UNITS SC (12:50)
[2025-01-08 15:00] VITALS: BP 119/64
[2025-01-08 16:40] LABS: Glucose - Point of Care 131 mg/dl (70-99)
[2025-01-08] MEDS: FOLVITE 1 MG PO (17:40)
[2025-01-08 21:34] LABS: Glucose - Point of Care 232 mg/dl (70-99)
[2025-01-08 22:51] VITALS: BMI 38.2
[2025-01-08 23:00] VITALS: BP 92/62
[2025-01-09] MEDS: SYNTHROID 25 MCG PO (05:35)
[2025-01-09 05:51] LABS: Hematocrit 28.3 % (39.0-52.0); Hemoglobin 9.1 g/dL (13.0-18.0); Mean Corp Hgb Conc. 32.2 g/dL (33.0-37.0); Mean Corpuscular Volume 111.9 fL (80.0-94.0); Nucleated Red Blood Cells % 0 % (-); Platelet Count 198 10^3/uL (130-400); Red Cell Dist. Width 17.8 % (11.5-14.5)
[2025-01-09 06:00] VITALS: BMI 38.3
[2025-01-09 06:20] LABS: Blood Urea Nitrogen 17 mg/dl (9-20); Calcium 8.9 mg/dl (8.4-10.2); Carbon Dioxide 32 mmol/L (22-30); Chloride 96 mmol/L (98-107); Estimated Creatinine Clearance 93 ml/min; Glucose 99 mg/dl (70-99); Potassium 3.9 mmol/L (3.5-5.1); Sodium 134 mmol/L (135-145); eGFR > 60.00
[2025-01-09 07:00] VITALS: BP 90/53; BMI 38.0
--- NOTE | 2025-01-09 07:28 | W.PN.HOSP.TC ---
Today's Communication/Plan
-
Diuretics pre cardio
anticipate dc today
Assessment / Plan
Assessment / Plan
#Decompensated HFpEF
#FLORENCIA not on CPAP
#Chronic venous insufficiency
- Last echo with preserved LVEF and normal RV size; noncompliant with CPAP
- Home regimen includes Lasix 40 mg daily, SGLT2i for GDMT; also on midodrine 3 times daily for hypotension
- Suspect FLORENCIA without use of CPAP is contributing to decompensation, with increased afterload effect
- Warm and wet phenotype, has been stable on room air while awake;
- trend BMP + I's and O's + daily weight
- Continue GDMT with SGLT2i, MRA; BP goal normotension
- Increased metoprolol XL to 75 mg daily due to HR in 90s
- Plan OP sleep study and CPAP, nocturnal O2 PRN here
- Monitor SpO2 with goal > 90%, continue telemetry
- Compression sleeves for CVI
- Cardiology following
- Metoprolol dose was decreased to home regimen
- IV lasix d/c for today: start po 80mg daily tomorrow per cardio
- BMP in one week
#Hypokalemia
- Resolved
#Wheezing
#Former tobacco use
- Has [id number] smoking history; complain of some wheezes today which do seem present
- No known formal diagnosis of COPD though obviously at high risk with smoking history
- Continue as needed DuoNebs here; will need to follow-up with pulm as OP for PFTs
- Plan for standing LABA/LAMA at discharge, likely GOLD A disease if present
#Macrocytic anemia
#Folate deficiency
#Chronic alcoholism
- Hemoglobin 8.6 baseline 9
- Has known folate deficiency on previous hospital stay due to alcoholism
- Continue with home thiamine and folate supplements, trend CBC
- MSAS protocol for withdrawal
#Hyponatremia
- Mild
- Continue to monitor
#Hypothyroidism
- Was on 12.5 mcg of levothyroxine, TSH here 34, increased to 25 mcg
- Will continue to monitor for signs or symptoms of hypothyroidism
- Will need to follow-up OP for repeat TSH, thyroid US, anti-TPO antibody
#NIDDM with neuropathy
#HLD
- Home regimen includes SGLT2 inhibitor for diabetes, gabapentin for neuropathy
- Home meds also include moderate intensity statin for vascular risk reduction
- No known history of associated retinopathy or nephropathy
- Continue with ISS and Accu-Cheks while inpatient
#Hypotension
- Unclear etiology though question if associated with hyperthyroid state as above
- Home medications include midodrine 2.5 mg 3 times daily
- Continue home meds for now, midodrine as tolerated
#3 nodules identified measuring up to 2.8 mm.
- f/u outpt with pcp and pulm
#Chronic pain on oxycodone
Diet: Diabetic, sodium restricted
Thromboprophylaxis: SQ Lovenox
CODE STATUS: Full code
Disposition: Homecare when stable
Anticipated Discharge: Today
Subjective/Interval History
-
Date of Service: January 09, 2025
AFVSS. Reports that earlier in the morning his blood pressure was slightly on the lower side and called lightheaded but it improved.
Objective Data
-
Labs:
Laboratory Results
01/09/25
05:33
WBC 3.8 L
Hgb 9.1 L
Hct 28.3 L
Plt Count 198
Sodium 134 L
Potassium 3.9
Chloride 96 L
Carbon Dioxide 32 H
BUN 17
Creatinine 1.2
Glucose 99
Calcium 8.9
Vital Signs:
Vital Signs
Temp Pulse Resp BP Pulse Ox
98.5 F 85 18 92/62 94
01/08/25 23:00 01/08/25 23:00 01/08/25 23:00 01/08/25 23:00 01/08/25 23:00
I&O
01/08/25 01/09/25 01/10/25
06:59 06:59 06:59
Intake Total 2039 1440 / 1440
Output Total 3700 / 3700 1500 / 1500
Balance -1660 / -1660 -60 / -60
Review of Systems
-
History Source: Patient
All other systems: Reviewed and negative
Physical Exam
-
General: Well Developed, No Apparent Distress and Obese
HEENT: Normocephalic, Atraumatic, Moist Mucous Membranes and Anicteric
Respiratory: Wheezes and Non Labored Respirations; Negative Accessory Resp Muscle Use
Cardiac: Regular Rhythm, S1/S2 and Other (1+ pitting edema); Negative Murmur, Rub, JVD or Gallop
GI: Soft, Nontender, Nondistended and Normal Bowel Sounds
Musculoskeletal: No Clubbing and No Cyanosis
Skin: Warm and Dry; Negative Rash
Neuro: AO x 3, Nonfocal/Grossly Intact and Central Nerve's Intact; Negative Tremors
Psych: Calm
Data Reviewed
-
Labs: Labs Reviewed by me, Discussed with Physician and Discussed with Patient
[2025-01-09 07:37] LABS: Glucose - Point of Care 114 mg/dl (70-99)
[2025-01-09] MEDS: NEURONTIN 800 MG PO (08:36)
[2025-01-09] MEDS: KCL 40 MEQ PO (08:36)
[2025-01-09] MEDS: VITAMIN B1 100 MG PO (08:36)
[2025-01-09] MEDS: LIPITOR 10 MG PO (08:40)
[2025-01-09] MEDS: LOVENOX 40 MG SC (08:40)
[2025-01-09] MEDS: SENOKOT-S 1 TABLET PO (08:40)
[2025-01-09] MEDS: FARXIGA 10 MG PO (08:41)
[2025-01-09] MEDS: FOLVITE 2 MG PO ×2 (08:41→12:49)
[2025-01-09] MEDS: NOVOLOG FLEXPEN-LOW RESISTANCE SC ×2 (08:41→12:52)
[2025-01-09] MEDS: ROXICODONE 5 MG PO (08:42)
[2025-01-09] MEDS: LASIX IV (09:44)
[2025-01-09 09:48] VITALS: BP 116/63
[2025-01-09] MEDS: ALDACTONE 12.5 MG PO (10:00)
[2025-01-09] MEDS: TOPROL XL 25 MG PO (10:01)
--- NOTE | 2025-01-09 10:33 | W.PN.CARDCBS ---
Today's Communication / Plan
-
Transition to oral diuretics
Stable for discharge from my perspective
Check BMP in 1 week
Impression / Plan
-
PCP: Maite Long PA-C
Cardiology: Dr. Gaitan
Impression:
Admitted with SOB and acute on chronic HF 12/27/2024
Acute on chronic HFpEF
Chronic anemia
B/L LE edema
RBBB
FLORENCIA
HTN
HLD
OA s/p L TKA
s/p laminectomy and spinal fusion
Former smoker/ETOH use disorder
Recent falls with rib fractures of L 4th, 5th, 6th ribs
Adenopathy and splenomegaly by CTAP 12/12/24
ECHO 12/17/24: EF 67%, aortic sclerosis
Plan:
-Admitted with acute CHF. EF preserved to 67% by echo 12/17/2024
-Dry weight unknown. Patient has diuresed approx 40 lbs. Weight today 288lbs.
-Cr stable at 1.2
-BP is marginal and patient is reporting lightheadedness
-Plan to transition to PO lasix 80mg daily with supplemental K
-I do not think his BP will tolerate spironolactone at this time. Can revisit adding back as an outpatient.
-Patient was taking Jardiance 25 mg daily prior to admission and this was changed to Farxiga 10 mg daily due to formulary reasons at time of admission, patient should resume his usual dose of Jardiance when he is discharged.
-Reviewed importance of daily weights going forward
-Would continue Toprol-XL at home dose of 25mg daily. Could also consider switching to calcium channel cecy with wheezing earlier this admission.
-Continue midodrine 5 mg TID for hypotension
Stable for discharge from my perspective
Outpatient follow-up has been arranged
Would check BMP in 1 week
Recommended cardiac meds on discharge:
Lasix p.o. 80 mg daily
Potassium 40 mEq daily
Jardiance 25 mg daily
Toprol-XL 25 mg daily
Midodrine 5 mg TID
Progress Note - [employer]
Subjective
Date of Service: January 09, 2025
NAOE. Reporting lightheadedness and dizziness this AM. No CP or SOB.
Objective
Labs:
01/09/25 05:33
01/09/25 05:33
Labs
Hgb 9.1 g/dL (13.0-18.0) L 01/09/25 05:33
Hct 28.3 % (39.0-52.0) L 01/09/25 05:33
Plt Count 198 10^3/uL (130-400) 01/09/25 05:33
Sodium 134 mmol/L (135-145) L 01/09/25 05:33
Potassium 3.9 mmol/L (3.5-5.1) 01/09/25 05:33
BUN 17 mg/dl (9-20) 01/09/25 05:33
Creatinine 1.2 mg/dL (0.7-1.3) 01/09/25 05:33
Glucose 99 mg/dl (70-99) 01/09/25 05:33
Vital Signs and I&O:
Vital Signs
Temp Pulse Resp BP Pulse Ox
98.5 F 92 18 116/63 96
01/09/25 07:00 01/09/25 10:01 01/09/25 07:00 01/09/25 10:01 01/09/25 07:00
Vital Signs
Temp Pulse Resp BP Pulse Ox
98.5 F 92 18 116/63 96
01/09/25 07:00 01/09/25 10:01 01/09/25 07:00 01/09/25 10:01 01/09/25 07:00
Intake & Output
01/07/25 01/08/25 01/09/25 01/10/25
06:59 06:59 06:59 06:59
Intake Total 2160 / 2160 2040 / 2040 1440 / 1440
Output Total 4600 / 4600 3700 / 3700 1500 / 1500
Balance -2440 / -2440 -1660 / -1660 -60 / -60
Physical Exam
Physical Exam
Gen: NAD, AAOx3
HEENT: NC/AT, sclera anicteric
Neck: No JVD
CV: RRR, NL s1/s2
Lungs: CTAB on RA
Abd: S/ND
Ext: Nonpitting LE edema
Skin: Warm, dry
Neuro: Non-focal
[2025-01-09 11:58] LABS: Glucose - Point of Care 175 mg/dl (70-99)
[2025-01-09] MEDS: PREVNAR 20 0.5 ML IM (13:00)
--- NOTE | 2025-01-09 13:12 | CM ---
Pt cleared for discharge to home today. [facility] has been following and will resume VN services.
--- NOTE | 2025-01-10 14:23 | W.HF.CON ---
Heart Failure
- LV Function
Left ventricular function study result: LV Ejection fraction >/= 50%
Ejection Fraction Percentage: 67
- ARNI
Patient already on ARNI: No
Heart Failure ARNI Not Indicated: LV Ejection Fraction >/= 40%
- ACEI/ARB
Patient already on ACEI/ARB: No
Heart Failure ACEI/ARB Not Indicated: LV Ejection Fraction > 40%
- Beta Iganni
Patient already on Evidence Based Beta Gianni: Yes
- Mineralocorticord Receptor Antagonist
Patient already on MRA: No
Heart Failure MRA Not Indicated: LV Ejection Fraction > 40%
- SGLT-2 Inhibitor
Patient already on SGLT-2 Inhibitor: Yes
- NYHA CHF Classification
NYHA CHF Classification Level: Class III - Symptoms w/ min exertion, interferes w/ nml daily activity
- ACC/AHA Stage
ACC/AHA Stage: Stage C: Symptomatic Heart Failure
== END 2025-01-09 13:22 | disposition home health service (06) | DRG 291 ==
LOC: 3 WEST ACU 04:18
PROVIDERS: Emergency Medicine; Internal Medicine; ADMITTING PHYSICIAN Hospitalist; ATTENDING PHYSICIAN Internal Medicine; CONSULT PHYSICIAN Internal Medicine Cardiovascular Disease; EMERGENCY PHYSICIAN Emergency Medicine; FAMILY PHYSICIAN Physician Assistant
PROC: 5A09357 Assistance with Respiratory Ventilation, Less than 24 Consecutive Hours, Continuous Positive Airway Pressure (ICD-10-PCS; 2024-12-31)
DX: I11.0 Hypertensive heart disease with heart failure (principal); I50.33 Acute on chronic diastolic (congestive) heart failure; E87.1 Hypo-osmolality and hyponatremia; F11.20 Opioid dependence, uncomplicated; G47.33 Obstructive sleep apnea (adult) (pediatric); E87.6 Hypokalemia; D53.9 Nutritional anemia, unspecified; E53.8 Deficiency of other specified B group vitamins; F10.20 Alcohol dependence, uncomplicated; E03.9 Hypothyroidism, unspecified; E11.40 Type 2 diabetes mellitus with diabetic neuropathy, unspecified; E78.5 Hyperlipidemia, unspecified; I95.9 Hypotension, unspecified; Z80.3 Family history of malignant neoplasm of breast; Z82.49 Family history of ischemic heart disease and other diseases of the circulatory system; I89.0 Lymphedema, not elsewhere classified; I87.8 Other specified disorders of veins; E66.01 Morbid (severe) obesity due to excess calories; Z68.38 Body mass index [BMI] 38.0-38.9, adult; G89.4 Chronic pain syndrome; Z98.1 Arthrodesis status; Z96.652 Presence of left artificial knee joint; Z87.891 Personal history of nicotine dependence; Z79.890 Hormone replacement therapy; Z79.84 Long term (current) use of oral hypoglycemic drugs; Z79.899 Other long term (current) drug therapy
CPT/HCPCS: 71046; 80048; 80053; 82962; 83735; 83880; 84439; 84443; 85025; 85027; 86803; 86850; 86900; 86901; 90677; 93005; 94640; 94660; 96374; 97116; 97162; 99285; G0009

== ENCOUNTER → 2025-01-31 08:35 | Outpatient (REF) | payer OTHER, SELFPAY ==
[2025-01-31 10:34] LABS: Blood Urea Nitrogen 27 mg/dl (9-20); Calcium 9.1 mg/dl (8.4-10.2); Carbon Dioxide 31 mmol/L (22-30); Chloride 99 mmol/L (98-107); Glucose 106 mg/dl (70-99); Potassium 3.9 mmol/L (3.5-5.1); Sodium 135 mmol/L (135-145); eGFR 52.97
== END ==
LOC: HWLAB 08:35
PROVIDERS: ATTENDING PHYSICIAN Nurse Practitioner; FAMILY PHYSICIAN Physician Assistant
DX: I50.32 Chronic diastolic (congestive) heart failure (principal)
CPT/HCPCS: 36415; 80048

== ENCOUNTER → 2025-03-04 08:57 | Outpatient (REF) | payer OTHER, SELFPAY ==
[2025-03-04 12:44] LABS: Hematocrit 30.6 % (39.0-52.0); Hemoglobin 10.1 g/dL (13.0-18.0); Mean Corp Hgb Conc. 33.0 g/dL (33.0-37.0); Mean Corpuscular Volume 99.0 fL (80.0-94.0); Nucleated Red Blood Cells % 0 % (-); Platelet Count 322 10^3/uL (130-400); Red Cell Dist. Width 15.9 % (11.5-14.5)
[2025-03-04 13:48] LABS: Blood Urea Nitrogen 29 mg/dl (9-20); Calcium 9.2 mg/dl (8.4-10.2); Carbon Dioxide 27 mmol/L (22-30); Chloride 96 mmol/L (98-107); Glucose 193 mg/dl (70-99); Iron 101 ug/dl (49-181); Potassium 3.8 mmol/L (3.5-5.1); Sodium 133 mmol/L (135-145); eGFR 57.54
[2025-03-04 13:57] LABS: Total Iron Binding Capacity 201 ug/dl (261-462)
[2025-03-04 14:06] LABS: TSH 3.92 uIU/ml (0.47-4.68)
[2025-03-04 14:10] LABS: Ferritin 685.0 ng/ml (17.9-464.0)
[2025-03-04 14:12] LABS: Glycohemoglobin (HgbA1c) 4.6 % (4.0-5.9)
== END ==
LOC: HWLAB 08:57
PROVIDERS: ATTENDING PHYSICIAN Internal Medicine Cardiovascular Disease; FAMILY PHYSICIAN Physician Assistant
DX: I50.32 Chronic diastolic (congestive) heart failure (principal); I10 Essential (primary) hypertension; E03.9 Hypothyroidism, unspecified; D53.9 Nutritional anemia, unspecified; E11.9 Type 2 diabetes mellitus without complications
CPT/HCPCS: 36415; 80048; 82728; 83036; 83540; 83550; 84439; 84443; 85025